=== PATIENT | female | born 1945 | race Caucasian/White ===

== ENCOUNTER → 2020-01-20 15:11 | Outpatient (CLI) | payer MEDICARE, SELFPAY ==
[2020-01-20 15:48] LABS: Basophils % 0.1 % (0.1-2.0); Eosinophils # 0.1 K/mm3 (0.0-0.4); Hematocrit 37.8 % (37.0-47.0); Hemoglobin 13.4 g/dL (12.2-16.2); Lymphocytes # 1.3 K/mm3 (0.7-4.5); Lymphocytes % 19.7 % (10-50); Mean Corpuscular HGB Conc 35.5 g/dL (31.8-35.4); Mean Corpuscular Hemoglobin 29.6 pg (27.0-31.2); Mean Corpuscular Volume 83.4 fl (81-99); Mean Platelet Volume 8.4 fl (7.4-10.4); Monocytes # 0.4 K/mm3 (0.1-1.0); Monocytes % 5.7 % (1.7-9.3); Neutrophils # 4.9 K/mm3 (1.8-7.8); Neutrophils % 73.4 % (37.0-80.0); Platelet Count 316 K/mm3 (142-424); Red Blood Count 4.54 M/mm3 (4.20-5.40); Red Cell Distribution Width 13.4 % (11.5-17.5); White Blood Count 6.7 K/mm3 (4.8-10.8)
[2020-01-20 17:12] LABS: Alanine Aminotransferase 27 U/L (12-78); Albumin Level 4.9 g/dl (3.5-5.0); Albumin/Globulin Ratio 1.9 (1.1-1.8); Alkaline Phosphatase 82 U/L (38-126); Aspartate Amino Transferase 38 U/L (14-36); Bilirubin,Total 0.6 mg/dl (0.2-1.3); Blood Urea Nitrogen 17 mg/dl (7-17); Calcium 9.7 mg/dl (8.4-10.2); Carbon Dioxide 24 mmol/L (22.0-30.0); Chloride 105 mmol/L (98-107); Cholesterol 168 mg/dl (140-200); Estimated Glomerular Filt Rate 98 ml/min (>60); GFR (African American) 119 ML/MIN (>60); Globulin 2.6 g/dL (1.3-3.2); Glucose 93 mg/dl (74-100); HDL Cholesterol 84 mg/dl (40-60); Sodium 142 mmol/L (136-145); Total Protein,Serum 7.5 g/dl (6.3-8.2); Triglycerides 81 mg/dl (30-150); VLDL Cholesterol 16 mg/dL (0-40)
[2020-01-20 17:23] LABS: Direct LDL Cholesterol 70.79 mg/dL (100-129)
[2020-01-20 17:29] LABS: T4 (Thyroxine) 14.6 ug/dl (5.53-11.0)
[2020-01-20 17:43] LABS: Thyroid Stimulating Hormone 1.42 uIU/mL (0.465-4.68)
== END ==
PROVIDERS: Visit Provider Family Medicine
DX: E03.9 Hypothyroidism, unspecified (principal); I10 Essential (primary) hypertension
CPT/HCPCS: 80053; 80061; 84436; 84443; 85025

== ENCOUNTER → 2020-09-07 16:47 | Outpatient (CLI) | payer MEDICARE, SELFPAY | PROVIDERS: Visit Provider Family Medicine | DX: N76.0 Acute vaginitis (principal) | CPT/HCPCS: 87086 ==

== ENCOUNTER → 2021-04-11 18:35 | Outpatient (CLI) | payer MEDICARE, SELFPAY | PROVIDERS: Visit Provider Family Medicine | DX: N39.0 Urinary tract infection, site not specified (principal) | CPT/HCPCS: 87086 ==

== ENCOUNTER → 2022-05-05 12:05 | Outpatient (CLI) | payer MEDICARE, SELFPAY ==
[2022-05-05 13:36] LABS: Basophils # 0.1 K/mm3 (0-0.2); Basophils % 0.9 % (0.1-2.0); Eosinophils # 0.3 K/mm3 (0.0-0.4); Eosinophils % 3.3 % (0.1-12.0); Hematocrit 40.3 % (37.0-47.0); Hemoglobin 13.5 g/dL (12.2-16.2); Lymphocytes # 1.9 K/mm3 (0.7-4.5); Mean Corpuscular HGB Conc 33.6 g/dL (31.8-35.4); Mean Corpuscular Volume 86.3 fl (81-99); Mean Platelet Volume 8.2 fl (7.4-10.4); Monocytes # 0.6 K/mm3 (0.1-1.0); Monocytes % 7.8 % (1.7-9.3); Neutrophils # 4.7 K/mm3 (1.8-7.8); Neutrophils % 63.1 % (37.0-80.0); Platelet Count 401 K/mm3 (142-424); Red Blood Count 4.67 M/mm3 (4.20-5.40); Red Cell Distribution Width 13.5 % (11.5-17.5); White Blood Count 7.4 K/mm3 (4.8-10.8)
[2022-05-05 14:17] LABS: Alanine Aminotransferase 21 U/L (12-78); Albumin Level 4.7 g/dl (3.5-5.0); Alkaline Phosphatase 96 U/L (38-126); Anion Gap 16.1 mEq/L (5-15); Aspartate Amino Transferase 30 U/L (14-36); Bilirubin,Total 0.5 mg/dl (0.2-1.3); Blood Urea Nitrogen 17 mg/dl (7-17); Calcium 9.9 mg/dl (8.4-10.2); Carbon Dioxide 26 mmol/L (22.0-30.0); Chloride 100 mmol/L (98-107); Estimated Glomerular Filt Rate 82 ml/min (>60); GFR (African American) 99 ML/MIN (>60); Globulin 2.3 g/dL (1.3-3.2); Glucose 89 mg/dl (74-100); Potassium 4.1 mmoL/L (3.5-5.1); Sodium 138 mmol/L (136-145)
[2022-05-05 14:48] LABS: Thyroid Stimulating Hormone 0.22 uIU/mL (0.465-4.68)
== END ==
PROVIDERS: PCP Family Medicine; Visit Provider Family Medicine
DX: E78.5 Hyperlipidemia, unspecified (principal); R53.83 Other fatigue
CPT/HCPCS: 80053; 84443; 85025

== ENCOUNTER → 2023-02-19 23:54 | Outpatient (CLI) | payer MEDICARE, SELFPAY ==
[2023-02-19 19:06] LABS: Chloride 104 mmol/L (98-107); Potassium 3.7 mmoL/L (3.5-5.1); Sodium 140 mmol/L (136-145)
[2023-02-19 19:08] LABS: Alanine Aminotransferase 20 U/L (12-78); Aspartate Amino Transferase 27 U/L (14-36); Blood Urea Nitrogen 19 mg/dl (7-17); Estimated Glomerular Filt Rate 81 ml/min (>60); GFR (African American) 98 ML/MIN (>60)
[2023-02-19 19:09] LABS: Albumin Level 3.9 g/dl (3.5-5.0); Albumin/Globulin Ratio 1.6 (1.1-1.8); Alkaline Phosphatase 79 U/L (38-126); Anion Gap 12.7 mEq/L (5-15); Bilirubin,Total 0.3 mg/dl (0.2-1.3); Calcium 9.3 mg/dl (8.4-10.2); Carbon Dioxide 27 mmol/L (22.0-30.0); Globulin 2.4 g/dL (1.3-3.2); Glucose 99 mg/dl (74-100); Total Protein,Serum 6.3 g/dl (6.3-8.2)
[2023-02-19 19:38] LABS: Thyroid Stimulating Hormone 0.17 uIU/mL (0.465-4.68)
== END ==
PROVIDERS: PCP Family Medicine; Visit Provider Family Medicine
DX: N30.00 Acute cystitis without hematuria (principal); S99.929A Unspecified injury of unspecified foot, initial encounter; Z85.850 Personal history of malignant neoplasm of thyroid
CPT/HCPCS: 80053; 84443; 87086

== ENCOUNTER → 2023-04-22 23:00 | Outpatient (CLI) | payer MEDICARE, SELFPAY ==
[2023-04-22 20:09] LABS: Free T4 (Free Thyroxine) 1.14 ng/dl (0.78-2.19)
== END ==
PROVIDERS: PCP Family Medicine; Visit Provider Family Medicine
DX: Z85.850 Personal history of malignant neoplasm of thyroid (principal)
CPT/HCPCS: 84439; 84443

== ENCOUNTER 2023-07-01 18:20 | Outpatient (CLI) | payer MEDICARE, SELFPAY ==
[2023-07-01 19:33] LABS: T4 (Thyroxine) 17.4 ug/dl (5.53-11.0)
[2023-07-01 19:46] LABS: Thyroid Stimulating Hormone 0.06 uIU/mL (0.465-4.68)
== END 2023-07-01 23:59 ==
LOC: LAB.DROPOF 18:20
PROVIDERS: PCP Family Medicine; Visit Provider Family Medicine
DX: Z85.850 Personal history of malignant neoplasm of thyroid (principal); N39.0 Urinary tract infection, site not specified; R94.6 Abnormal results of thyroid function studies; R19.00 Intra-abdominal and pelvic swelling, mass and lump, unspecified site; Z79.899 Other long term (current) drug therapy
CPT/HCPCS: 84436; 84443; 87086

== ENCOUNTER 2023-09-14 19:53 | Outpatient (CLI) | payer MEDICARE, SELFPAY ==
[2023-09-14 19:25] LABS: Basophils % 0.4 % (0.1-2.0); Eosinophils # 0.4 K/mm3 (0.0-0.4); Hematocrit 33.3 % (37.0-47.0); Lymphocytes # 1.6 K/mm3 (0.7-4.5); Lymphocytes % 22.2 % (10-50); Mean Corpuscular Hemoglobin 29.3 pg (27.0-31.2); Mean Corpuscular Volume 88.8 fl (81-99); Mean Platelet Volume 8.4 fl (7.4-10.4); Monocytes # 0.6 K/mm3 (0.1-1.0); Monocytes % 7.9 % (1.7-9.3); Neutrophils # 4.6 K/mm3 (1.8-7.8); Neutrophils % 64.5 % (37.0-80.0); Platelet Count 485 K/mm3 (142-424); Red Blood Count 3.74 M/mm3 (4.20-5.40); Red Cell Distribution Width 15.1 % (11.5-17.5); White Blood Count 7.1 K/mm3 (4.8-10.8)
[2023-09-14 19:41] LABS: Alanine Aminotransferase 21 U/L (12-78); Albumin Level 4.2 g/dl (3.5-5.0); Albumin/Globulin Ratio 1.9 (1.1-1.8); Alkaline Phosphatase 79 U/L (38-126); Anion Gap 10.2 mEq/L (5-15); Aspartate Amino Transferase 28 U/L (14-36); Bilirubin,Total 0.4 mg/dl (0.2-1.3); Blood Urea Nitrogen 15 mg/dl (7-17); Calcium 9.3 mg/dl (8.4-10.2); Carbon Dioxide 26 mmol/L (22.0-30.0); Chloride 107 mmol/L (98-107); Estimated Glomerular Filt Rate 97 ml/min (>60); GFR (African American) 118 ML/MIN (>60); Globulin 2.2 g/dL (1.3-3.2); Glucose 94 mg/dl (74-100); Potassium 4.2 mmoL/L (3.5-5.1); Sodium 139 mmol/L (136-145); Total Protein,Serum 6.4 g/dl (6.3-8.2)
[2023-09-14 20:11] LABS: Thyroid Stimulating Hormone 1.62 uIU/mL (0.465-4.68)
== END 2023-09-14 23:59 ==
LOC: LAB.DROPOF 19:53
PROVIDERS: PCP Family Medicine; Visit Provider Family Medicine
DX: E78.5 Hyperlipidemia, unspecified (principal); I10 Essential (primary) hypertension; Z85.850 Personal history of malignant neoplasm of thyroid
CPT/HCPCS: 80053; 84443; 85025

== ENCOUNTER 2023-10-29 12:42 | Outpatient (CLI) | payer MEDICARE, SELFPAY ==
[2023-10-29 18:56] LABS: Basophils % 0.5 % (0.1-2.0); Eosinophils # 0.2 K/mm3 (0.0-0.4); Eosinophils % 2.4 % (0.1-12.0); Hematocrit 35.6 % (37.0-47.0); Hemoglobin 11.6 g/dL (12.2-16.2); Lymphocytes # 1.2 K/mm3 (0.7-4.5); Lymphocytes % 17.1 % (10-50); Mean Corpuscular HGB Conc 32.7 g/dL (31.8-35.4); Mean Corpuscular Hemoglobin 27.6 pg (27.0-31.2); Mean Corpuscular Volume 84.5 fl (81-99); Mean Platelet Volume 8.9 fl (7.4-10.4); Monocytes # 0.6 K/mm3 (0.1-1.0); Monocytes % 7.9 % (1.7-9.3); Neutrophils # 5.1 K/mm3 (1.8-7.8); Neutrophils % 72.2 % (37.0-80.0); Platelet Count 375 K/mm3 (142-424); Red Blood Count 4.22 M/mm3 (4.20-5.40); Red Cell Distribution Width 14.5 % (11.5-17.5)
[2023-10-29 19:42] LABS: Thyroid Stimulating Hormone 0.05 uIU/mL (0.465-4.68)
[2023-10-29 20:01] LABS: Vitamin B12 373 pg/mL (239-931)
[2023-10-29 20:58] LABS: Iron 60 ug/dL (37-170)
[2023-10-29 21:07] LABS: Total Iron Binding Capacity 464 ug/dL (265-497)
== END 2023-10-29 23:59 | disposition home or self-care (01) ==
LOC: LAB.DROPOF 10-30 12:43
PROVIDERS: PCP Family Medicine; Visit Provider Family Medicine
DX: R30.0 Dysuria (principal); E07.9 Disorder of thyroid, unspecified; E55.9 Vitamin D deficiency, unspecified; E61.1 Iron deficiency; B96.29 Other Escherichia coli [E. coli] as the cause of diseases classified elsewhere
CPT/HCPCS: 82306; 82607; 83540; 83550; 84443; 85025; 87086; 87088; 87186

== ENCOUNTER 2024-01-25 10:34 | Outpatient (CLI) | payer MEDICARE, SELFPAY ==
[2024-01-25 19:02] LABS: Basophils % 0.8 % (0.1-2.0); Eosinophils # 0.2 K/mm3 (0.0-0.4); Eosinophils % 3.7 % (0.1-12.0); Hemoglobin 13.7 g/dL (12.2-16.2); Lymphocytes # 1.8 K/mm3 (0.7-4.5); Lymphocytes % 31.7 % (10-50); Mean Corpuscular HGB Conc 32.6 g/dL (31.8-35.4); Mean Corpuscular Hemoglobin 28.7 pg (27.0-31.2); Mean Corpuscular Volume 87.9 fl (81-99); Monocytes # 0.5 K/mm3 (0.1-1.0); Monocytes % 8.8 % (1.7-9.3); Neutrophils # 3.1 K/mm3 (1.8-7.8); Neutrophils % 55.1 % (37.0-80.0); Platelet Count 329 K/mm3 (142-424); Red Blood Count 4.77 M/mm3 (4.20-5.40); Red Cell Distribution Width 17.4 % (11.5-17.5); White Blood Count 5.6 K/mm3 (4.8-10.8)
[2024-01-25 19:51] LABS: Albumin Level 4.1 g/dl (3.5-5.0); Chloride 108 mmol/L (98-107); Sodium 140 mmol/L (136-145)
[2024-01-25 19:53] LABS: Alanine Aminotransferase 19 U/L (12-78); Aspartate Amino Transferase 26 U/L (14-36); Blood Urea Nitrogen 14 mg/dl (7-17); Carbon Dioxide 26 mmol/L (22.0-30.0); Estimated Glomerular Filt Rate 81 ml/min (>60); GFR (African American) 98 ML/MIN (>60)
[2024-01-25 19:54] LABS: Albumin/Globulin Ratio 1.9 (1.1-1.8); Alkaline Phosphatase 63 U/L (38-126); Bilirubin,Total 0.7 mg/dl (0.2-1.3); Calcium 8.8 mg/dl (8.4-10.2); Chol/HDL Ratio 2.3 (1-3.5); Cholesterol 160 mg/dl (140-200); Globulin 2.2 g/dL (1.3-3.2); Glucose 78 mg/dl (74-100); HDL Cholesterol 69 mg/dl (40-60); Total Protein,Serum 6.3 g/dl (6.3-8.2); Triglycerides 103 mg/dl (30-150); VLDL Cholesterol 21 mg/dL (0-40)
[2024-01-25 20:06] LABS: Direct LDL Cholesterol 52.68 mg/dL (100-129)
[2024-01-25 20:07] LABS: T4 (Thyroxine) 15.3 ug/dl (5.53-11.0)
[2024-01-25 20:20] LABS: Thyroid Stimulating Hormone 0.58 uIU/mL (0.465-4.68)
== END 2024-01-25 23:59 | disposition home or self-care (01) ==
LOC: LAB.DROPOF 01-26 10:34
PROVIDERS: PCP Family Medicine; Visit Provider Family Medicine
DX: E07.9 Disorder of thyroid, unspecified (principal); Z85.850 Personal history of malignant neoplasm of thyroid; E78.5 Hyperlipidemia, unspecified
CPT/HCPCS: 80050; 80053; 80061; 84436; 84443; 85025

== ENCOUNTER 2024-02-16 13:10 | Outpatient (CLI) | payer MEDICARE, SELFPAY | END 2024-02-16 23:59 | disposition home or self-care (01) | LOC: LAB.DROPOF 02-17 13:51 | PROVIDERS: PCP Nurse Practitioner; Visit Provider Nurse Practitioner | DX: N39.0 Urinary tract infection, site not specified (principal) | CPT/HCPCS: 87086 ==

== ENCOUNTER 2024-05-13 09:24 | Outpatient (CLI) | payer MEDICARE, SELFPAY ==
[2024-05-13 18:18] LABS: Basophils % 0.7 % (0.1-2.0); Eosinophils # 0.1 K/mm3 (0.0-0.4); Eosinophils % 1.5 % (0.1-12.0); Hematocrit 39.6 % (37.0-47.0); Hemoglobin 13.9 g/dL (12.2-16.2); Lymphocytes # 1.6 K/mm3 (0.7-4.5); Lymphocytes % 28.1 % (10-50); Mean Corpuscular HGB Conc 35.2 g/dL (31.8-35.4); Mean Corpuscular Hemoglobin 30.1 pg (27.0-31.2); Mean Corpuscular Volume 85.5 fl (81-99); Mean Platelet Volume 8.8 fl (7.4-10.4); Monocytes # 0.5 K/mm3 (0.1-1.0); Monocytes % 8.8 % (1.7-9.3); Neutrophils # 3.5 K/mm3 (1.8-7.8); Neutrophils % 60.9 % (37.0-80.0); Platelet Count 312 K/mm3 (142-424); Red Blood Count 4.63 M/mm3 (4.20-5.40); Red Cell Distribution Width 13.6 % (11.5-17.5); White Blood Count 5.7 K/mm3 (4.8-10.8)
[2024-05-13 18:54] LABS: Alanine Aminotransferase 21 U/L (12-78); Albumin Level 4.7 g/dl (3.5-5.0); Albumin/Globulin Ratio 2.1 (1.1-1.8); Alkaline Phosphatase 80 U/L (38-126); Anion Gap 14.8 mEq/L (5-15); Aspartate Amino Transferase 29 U/L (14-36); Bilirubin,Total 0.8 mg/dl (0.2-1.3); Blood Urea Nitrogen 14 mg/dl (7-17); Calcium 9.4 mg/dl (8.4-10.2); Carbon Dioxide 23 mmol/L (22.0-30.0); Chloride 106 mmol/L (98-107); Chol/HDL Ratio 1.9 (1-3.5); Cholesterol 161 mg/dl (140-200); Estimated Glomerular Filt Rate 97 ml/min (>60); GFR (African American) 117 ML/MIN (>60); Globulin 2.2 g/dL (1.3-3.2); Glucose 96 mg/dl (74-100); HDL Cholesterol 84 mg/dl (40-60); Potassium 3.8 mmoL/L (3.5-5.1); Sodium 140 mmol/L (136-145); Total Protein,Serum 6.9 g/dl (6.3-8.2); Triglycerides 104 mg/dl (30-150); VLDL Cholesterol 21 mg/dL (0-40)
[2024-05-13 19:05] LABS: Direct LDL Cholesterol 58.52 mg/dL (100-129)
[2024-05-13 19:25] LABS: Thyroid Stimulating Hormone 0.46 uIU/mL (0.465-4.68)
== END 2024-05-13 23:59 | disposition home or self-care (01) ==
LOC: LAB.DROPOF 05-16 09:24
PROVIDERS: PCP Family Medicine; Visit Provider Family Medicine
DX: I10 Essential (primary) hypertension (principal); Z00.00 Encounter for general adult medical examination without abnormal findings; Z85.850 Personal history of malignant neoplasm of thyroid
CPT/HCPCS: 80053; 80061; 84443; 85025

== ENCOUNTER 2024-09-21 09:30 | Outpatient (CLI) | payer MEDICARE, SELFPAY ==
[2024-09-21 18:08] LABS: Basophils % 0.4 % (0.1-2.0); Eosinophils # 0.5 K/mm3 (0.0-0.4); Eosinophils % 7.6 % (0.1-12.0); Hematocrit 40.4 % (37.0-47.0); Hemoglobin 13.3 g/dL (12.2-16.2); Lymphocytes # 1.3 K/mm3 (0.7-4.5); Lymphocytes % 18.9 % (10-50); Mean Corpuscular HGB Conc 32.9 g/dL (31.8-35.4); Mean Corpuscular Hemoglobin 29.2 pg (27.0-31.2); Mean Corpuscular Volume 88.8 fl (81-99); Mean Platelet Volume 10.4 fl (7.4-10.4); Monocytes # 0.6 K/mm3 (0.1-1.0); Monocytes % 8.2 % (1.7-9.3); Neutrophils # 4.3 K/mm3 (1.8-7.8); Neutrophils % 64.8 % (37.0-80.0); Platelet Count 305 K/mm3 (142-424); Red Blood Count 4.55 M/mm3 (4.20-5.40); Red Cell Distribution Width 13.2 % (11.5-17.5); White Blood Count 6.7 K/mm3 (4.8-10.8)
[2024-09-21 20:17] LABS: Alanine Aminotransferase 19 U/L (12-78); Albumin/Globulin Ratio 1.7 (1.1-1.8); Alkaline Phosphatase 76 U/L (38-126); Anion Gap 12.1 mEq/L (5-15); Aspartate Amino Transferase 28 U/L (14-36); Bilirubin,Total 0.9 mg/dl (0.2-1.3); Blood Urea Nitrogen 20 mg/dl (7-17); Carbon Dioxide 25 mmol/L (22.0-30.0); Chloride 107 mmol/L (98-107); Chol/HDL Ratio 2.1 (1-3.5); Cholesterol 132 mg/dl (140-200); Estimated Glomerular Filt Rate 97 ml/min (>60); GFR (African American) 117 ML/MIN (>60); Globulin 2.3 g/dL (1.3-3.2); Glucose 82 mg/dl (74-100); HDL Cholesterol 64 mg/dl (40-60); Potassium 4.1 mmoL/L (3.5-5.1); Sodium 140 mmol/L (136-145); Total Protein,Serum 6.3 g/dl (6.3-8.2); Triglycerides 90 mg/dl (30-150); VLDL Cholesterol 18 mg/dL (0-40)
[2024-09-21 20:28] LABS: Direct LDL Cholesterol 51.27 mg/dL (100-129)
[2024-09-21 20:36] LABS: T4 (Thyroxine) 14.8 ug/dl (5.53-11.0)
[2024-09-21 20:49] LABS: Thyroid Stimulating Hormone 0.31 uIU/mL (0.465-4.68)
[2024-09-21 21:09] LABS: Vitamin B12 475 pg/mL (239-931)
== END 2024-09-21 23:59 | disposition home or self-care (01) ==
LOC: LAB.DROPOF 09-22 09:06
PROVIDERS: PCP Family Medicine; Visit Provider Family Medicine
DX: Z85.850 Personal history of malignant neoplasm of thyroid (principal); I10 Essential (primary) hypertension
CPT/HCPCS: 80053; 80061; 82607; 84436; 84443; 85025

== ENCOUNTER 2024-10-31 10:00 | Outpatient (CLI) | payer MEDICARE, SELFPAY | END 2024-10-31 23:59 | disposition home or self-care (01) | LOC: LAB.DROPOF 11-01 13:09 | PROVIDERS: PCP Nurse Practitioner; Visit Provider Nurse Practitioner | DX: N30.00 Acute cystitis without hematuria (principal); B96.29 Other Escherichia coli [E. coli] as the cause of diseases classified elsewhere | CPT/HCPCS: 87086; 87088; 87186 ==

== ENCOUNTER 2024-12-21 09:20 | Outpatient (CLI) | payer MEDICARE, SELFPAY ==
--- OUTSIDE RECORDS SUMMARY | 2024-11-09 13:10 | XMS_ITS | Encounter Summary ---
Author Organization [place] [address] Care Team Providers Care Daytime Babysitter Name Role Phone Robert Ramos MD Unavailable [phone] Janina Montes MD Unavailable [phone] Kyaw Shook MD Primary Care Provider [phone] Reason for Referral * Vascular Imaging (Routine) - Pending Review Specialty Diagnoses / Procedures Referred By Contac t Referred To Contact Radiology Diagnoses Nonrheumatic aortic valve insufficiency Bruit of right carotid artery Right carotid bruit Procedures [facility] CAROTID DUPLEX BILATERAL Bhavin Oliver MD [address] [place] [address] [place] [address] Phone: tel: fax: Referral ID Status Reason Start Date Expiration Date V isits Requested Visits Authorized [id number] Pending Review 11/09/2024 11/09/2025 1 1 Reason for Visit * Reason Comments Follow-up 9 month follow up. E cho 08/31/24 Encounter Details Date Type Department Care Team (Latest Contact Info) Description 11/09/2024 1:10 PM EDT Office Visit [facility] [address] [place] [id number] Bhavin Oliver MD [address] [place] [address] [address] [facility] [place] [id number] Nonrheumatic aortic valve insufficiency (Primary Dx); Bruit of right carotid artery; Right carotid bruit Social History Tobacco Use Types Packs/Day Years Used Date Smoking Tobacco: Never Smokeless Tobacco: Never Tobacco Cessation:Counseling Given: Not Answered Alcohol Use Standard Drinks/Week Comments Yes 0 (1 standard drink = 0.6 oz pur e alcohol) rare [facility] Utilities Answer Date Recorded In the past 12 months has e electric, gas, oil, or water company threatened to shut off services in your home? No 09/07/2023 AUDIT-C Answer Date Recorded Frequency of Alcohol Consumption Monthly or less 02/18/2019 Average Number of Drinks Not on file 019 Frequency of Binge Drinking Not on file 01/22 Overall Financial Resource Strain (CARDIA) Answe r Date Recorded How hard is it for you to pa y for the very basics like food, housing, medical care, and heating? Not hard at all 09/07/2023 PHQ-2 Answer Date Recorded PHQ-2 Total Score 0 09/07/2023 [facility] - Occupational Stress Questionnaire Answer Date Recorded Do you feel stress - tense, restless, nervous, or anxious, or unable to sleep at night because your mind is troubled all the time - these days? Not at all 09/07/2023 Exercise Vital Sign Answer Date Recorde d On average, how many days pe r week do you engage in moderate to strenuous exercise (like a brisk walk)? 2 days 09/07/2023 On average, how many minutes do you engage in exercise at this level? 10 min 09/07/2023 Hunger Vital Sign Answer Date Recorded Within the past 12 months, y ou worried that your food would run out before you got the money to buy more. Never true 09/07/19 24 Within the past 12 months, t he food you bought just didn't last and you didn't have money to get more. Never true 09/07/2023 [facility] IP Transportation Answer D ate Recorded In the past 12 months, has l ack of reliable transportation kept you from medical appointments, meetings, work or from getting things needed for daily living? No 09/07/2023 Sexually Active Control Partners Comments Not Currently Comments No Sex and Gender Information Value Date Recorded Sex Assigned at Not on file Legal Sex Female 12:56 PM EDT Gender Identity Not on file Sexual Orientation Not on file documented as of this encounter Last Filed Vital Signs Vital Sign Reading Time Taken Comments Blood Pressure 120/70 11/09/2024 1:09 PM EDT Pulse 92 11/09/2024 1:09 PM EDT Temperature - - Respiratory Rate - - Oxygen Saturation - - Inhaled Oxygen Concentration - - Weight 61.2 kg (135 lb) 11/09/2024 1:09 PM EDT Height 165.1 cm (5' 5 ) 11/09/2024 1:09 PM EDT Body Mass Index 22.47 11/09/2024 1:09 PM EDT documented in this encounter Functional Status * Is the person deaf or does he/she have serious difficulty hearing? Answer Date of Assessment Author No 07/20/2019 8:43 AM Crystal Marrufo RN * Is the person blind or does he/she have serious difficulty seeing even when wearing glasses? Answer Date of Assessment Author No 07/20/2019 8:43 AM Crystal Marrufo RN * Does this person have serious difficulty walking or climbing stairs? Answer Date of Assessment Author No 07/20/2019 8:43 AM Crystal Marrufo RN * Does this person have difficulty dressing or bathing? Answer Date of Assessment Author No 07/20/2019 8:43 AM Crystal Marrufo RN * Because of a physical, mental or emotional condition, does this person have difficulty doing errands alone such as visiting a doctor's office or shopping? Answer Date of Assessment Author No 07/20/2019 8:43 AM Crystal Marrufo RN documented as of this encounter Mental Status * Because of a physical, mental or emotional condition, does this person have serious difficulty concentrating, remembering or making decisions? Answer Entry Date Author No 07/20/2019 8:43 AM Crystal Marrufo RN documented in this encounter Progress Notes * Bhavin Oliver MD - 11/09/2024 1:10 PM EDT Chief Complaint Patient presents with Follow-up 9 month follow up. Echo 08/31/24 HPI: Noemi Huffman is here for regularly scheduled cardiology followup. The patient reports feeling well without particular complaints today. REVIEW OF SYSTEMS: NEGATIVE FOR: Chest pain Dyspnea Palpitations Dizziness Syncope Edema POSITIVE FOR: none All other review of systems are negative. PAST MEDICAL HISTORY: Past Medical History: Diagnosis Date Anxiety Aortic valve regurgitation Arthritis knees Complication of anesthesia Diverticulosis Goiter Heart murmur mitral valve prolapse dx 2008, was having jaw pain, saw Dr. Ramos Heartburn and gas Hyperlipidemia Hypertension Mitral valve prolapse Osteoarthritis Osteopenia Post-surgical hypothyroidism 10/2013 Thyroid cancer (HCC) 10/2013 Follicular variant PTC, [id number] Stage I Tricuspid valve regurgitation Urinary tract infection last one 07/05 Vitamin D deficiency 01/10/2014 PAST SURGICAL HISTORY: Past Surgical History: Procedure Laterality Date BREAST SURGERY biopsy CHOLECYSTECTOMY, LAPAROSCOPIC 06/05/2010 LAPAROSCOPIC CHOLECYSTECTOMY POSSIBLE OPEN - SCIP performed by DARCI HALL at [facility] MAIN OR COLPOPEXY N/A 07/19/2019 Robotic Sacrocolpopexy, Placement of Transobturator Urethral Mesh Sling, Posterior Repair, Cystoscopy ; Surgeon: Hanna Iglesias MD; Location: [facility] MAIN OR; Service: Robotics CYSTOCELE REPAIR N/A 07/19/2019 Surgeon: Hanna Iglesias MD; Location: [facility] MAIN OR; Service: Robotics CYSTOSCOPY N/A 07/19/2019 Surgeon: Hanna Iglesias MD; Location: [facility] MAIN OR; Service: Robotics HYSTERECTOMY OVARY REMOVAL THYROIDECTOMY Bilateral 10/20/2013 RIGHT THYROID LOBECTOMY with isthmusectomy; Surgeon: Carlos Sanders MD; Location: [facility] MAIN OR; Service: ENT THYROIDECTOMY N/A 11/17/2013 COMPLETION THYROIDECTOMY; Surgeon: Carlos Sanders MD; Location: [facility] MAIN OR; Service: ENT TONSILLECTOMY URETHROPEXY N/A 07/19/2019 Surgeon: Hanna Iglesias MD; Location: [facility] MAIN OR; Service: Robotics ALLERGIES: Allergies Allergen Reactions Bacitracin Other (See Comments) Ciprofloxacin Hcl Other (See Comments) Nickel Swelling Allergic to metals Polysporin [Bacitracin-Polymyxin B] Swelling Any sporins Venom-Honey Bee Swelling Demerol [Meperidine] Other (See Comments) Pt states eyes turned green MEDICATIONS: Current Outpatient Medications: amLODIPine (NORVASC) 10 mg Oral Tablet, Take 1 Tablet by mouth daily., Disp: , Rfl: aspirin 81 mg Oral tablet, Take 1 Tablet by mouth daily. Hold until Thursday (Patient taking differently: Take 81 mg by mouth two times a week. Hold until Thursday), Disp: , Rfl: atorvastatin (LIPITOR) 20 mg Oral Tablet, Take 20 mg by mouth daily., Disp: , Rfl: azelastine (ASTELIN) 137 mcg (0.1 %) Nasl [place], Non-Aerosol, 2 Sprays in each nostril 2 times daily for 90 days. Use in each nostril as directed, Disp: 90 mL, Rfl: 1 ergocalciferol (VITAMIN D) 50,000 unit Oral Capsule, TAKE 1 CAPSULE BY MOUTH ONE TIME A WEEK, Disp:5 Cap, Rfl: 11 estradiol (ESTRACE) 0.01 % (0.1 mg/gram) Vagl Cream, Do not use Applicator. Apply pea-size amount with fingertip nightly x2 weeks, then apply 2-3 times per week thereafter, Disp: 1 Tube, Rfl: 3 losartan (COZAAR) 100 mg Oral Tablet, Take 1 Tablet by mouth daily. Restart , Disp: , Rfl: olopatadine (PATANOL) 0.1 % ophthalmic solution, Place 1 Drop into both eyes 2 times daily. Prn, Disp: , Rfl: pantoprazole (PROTONIX) 40 mg Oral Tablet, Delayed Release (E.C.), Take 40 mg by mouth daily., Disp: , Rfl: sulfamethoxazole-trimethoprim (BACTRIM DS) 800-160 mg Oral Tablet, Take 1 Tablet by mouth 2 times daily., Disp: , Rfl: SYNTHROID 100 mcg Oral Tablet, Take 100 mcg by mouth daily. (Patient taking differently: Take 88 mcg by mouth daily.), Disp: , Rfl: ciprofloxacin HCl (CIPRO) 500 mg Oral Tablet, take 1 tablet orally twice a day (Patient not taking:Reported on 11/09/2024), Disp: , Rfl: diclofenac (VOLTAREN) 1 % Top Gel, Apply topically as needed. (Patient not taking: Reported on 11/09/2024), Disp: , Rfl: famotidine (PEPCID) 40 mg Oral Tablet, Take 40 mg by mouth. (Patient not taking: Reported on 11/09/2024), Disp: , Rfl: polyethylene glycol (GLYCOLAX, MIRALAX) 17 gram Oral Powder in Packet, Take 17 g by mouth 2 times daily., Disp: 60 Packet, Rfl: 1 triamcinolone (NASACORT) 55 mcg Nasl Aerosol, [place], 2 Sprays by Nasal route daily. (Patient not taking: Reported on 11/09/2024), Disp: 16.5 g, Rfl: 5 SOCIAL HISTORY: Social History Socioeconomic History Marital status: Spouse name: Not on file Number of children: Not on file Years of education: Not on file Highest education level: Not on file Occupational History Not on file Tobacco Use Smoking status: Never Smokeless tobacco: Never Vaping Use Vaping status: Never Used Substance and Sexual Activity Alcohol use: Yes Comment: rare Drug use: No Sexual activity: Not Currently Other Topics Concern Not on file Social History Narrative Not on file Social Drivers of Health Financial Resource Strain: Low Risk (09/07/2023) Overall Financial Resource Strain (CARDIA) Difficulty of Paying Living Expenses: Not hard at all Food Insecurity: No Food Insecurity (09/07/2023) Hunger Vital Sign Worried About Running Out of Food in the Last Year: Never true Ran Out of Food in the Last Year: Never true Transportation Needs: No Transportation Needs (09/07/2023) [facility] IP Transportation In the past 12 months, has lack of reliable transportation kept you from medical appointments, meetings, work or from getting things needed for daily living?: No Physical Activity: Insufficiently Active (09/07/2023) Exercise Vital Sign Days of Exercise per Week: 2 days Minutes of Exercise per Session: 10 min Stress: No Stress Concern Present (09/07/2023) [facility] - Occupational Stress Questionnaire Feeling of Stress : Not at all Social Connections: Not on file Intimate Partner Violence: Not on file Housing Stability: Not on file FAMILY HISTORY: Family History Problem Relation Age of Onset Cancer Father Lung Cancer Father Diabetes Brother Heart Disease Brother Heart Attack Brother High Blood Pressure Brother Kidney Disease Brother Dementia Mother Depression Mother PHYSICAL EXAMINATION: Vitals: 11/09/24 1309 BP: 120/70 Pulse: 92 Body mass index is 22.47 kg/m??. CONSTITUTIONAL: Vital signs are noted No apparent distress Alert and oriented EYES: Gaze is conjugate Ptosis is absent EARS, NOSE, MOUTH, THROAT: Oropharynx is clear Nose is midline NECK: Thyromegaly is absent Trachea is midline RESPIRATORY: Respiratory effort is normal Wheezes are absent Rales are absent Rhonchi are absent CARDIOVASCULAR: Heart rate is noted above Rhythm is regular Murmurs are absent Rubs are absent S1 and S2 normal S3 or S4 are absent Pulses are normal Jugular venous pressure is normal Edema is absent Carotid Bruits are absent GASTROINTESTINAL: Bowel sounds are normal Hepatomegaly is absent Spleenomegaly is absent Abdomen is soft and non tender MUSCULOSKELETAL: Clubbing is absent Cyanosis is absent Gait is normal SKIN: Rashes are visually absent Turgor is normal Warm and dry NEUROLOGICAL: Cranial nerves are grossly intact Speech is normal PSYCHIATRIC: Mood is normal Affect is normal LABORATORY AND STUDIES: All pertinent study and laboratory results have been personally reviewed including results from last coronary angiogram, stress test, echocardiogram and/or carotid ultrasound if pertinent to this visit. SELECTIVE LAST BLOOD WORK: Lab Results Component Value Date CHOLESTEROL 134 09/23/2021 HDL 70 09/23/2021 LDLCALC 51 09/23/2021 TRIG 65 09/23/2021 Lab Results Component Value Date INR 1.04 09/06/2023 Lab Results Component Value Date WBC 6.8 09/08/2023 HGB 8.9 (L) 09/08/2023 HCT 27.3 (L) 09/08/2023 MCV 86.4 09/08/2023 PLT 273 09/08/2023 No results found for: HGBA1C Lab Results Component Value Date NA 143 09/08/2023 K 3.3 (L) 09/08/2023 BUN 8 09/08/2023 CALCIUM 8.4 (L) 09/08/2023 CL 109 (H) 09/08/2023 CO2 24 09/08/2023 CREATININE 0.63 09/08/2023 GLU 86 09/08/2023 Lab Results Component Value Date ALT 19 09/07/2023 AST 22 09/07/2023 ALKPHOS 59 09/07/2023 Lab Results Component Value Date TSH 0.863 09/23/2021 ECG RESULT IF DONE: No results found for this visit on 11/09/24. LABS ORDERS THIS VISIT: No orders of the defined types were placed in this encounter. IMAGING ORDERS THIS VISIT: None MEDICINE CHANGES THIS VISIT: Requested Prescriptions No prescriptions requested or ordered in this encounter There are no discontinued medications. ACTIVE PROBLEM LIST: Patient Active Problem List Diagnosis Date Noted Acute blood loss anemia 09/08/2023 Hypokalemia 09/08/2023 Gastrointestinal hemorrhage, unspecified gastrointestinal hemorrhage type 09/06/2023 Rectocele 04/26/2019 Added automatically from request for surgery [id number] Overactive bladder 04/26/2019 Added automatically from request for surgery [id number] Incomplete bladder emptying 04/26/2019 Added automatically from request for surgery [id number] Cystocele, midline 04/26/2019 Added automatically from request for surgery [id number] Stress incontinence 04/26/2019 Added automatically from request for surgery [id number] Subclinical hyperthyroidism, iatrogenic Vitamin D deficiency 01/10/2014 Osteopenia Post-surgical hypothyroidism Diverticulosis Thyroid cancer (HCC) 10/20/2013 Follicular variant PTC, [id number] Stage I Mitral valve prolapse mild Aortic valve regurgitation mild Tricuspid valve regurgitation mild ASSESSMENT AND PLAN: Rare sob Able to walk up flight steps No usa no chf No cps no pressure No bleeding Echo august 2024 60-65mild to mod ai, mild mr S/p gi bleeding spring 2023 Norvasc 10mg aday Lipitor 20mg day tolerating Echo ef 60 65 mod ai mild to mod mr Caortid 1-39%. Mild ai 2011, Is active Heart murmur 1-2/4 diastolic Endocarditis prophylaxis Amoxicillin 500mg 4 tabl prior to dentist Repeat echo Carotid bruit right Norvasc 10mg aday no edema Echo jun or jul 2024 planned to reassess ai documented in this encounter Miscellaneous Notes * Addendum Note - Abhishek Montgomery RMA - 11/09/2024 1:10 PM EDTAddended by: ABHISHEK MONTGOMERY on: 11/09/2024 01:28 PM Modules accepted: Orders * Addendum Note - Bhavin Oliver MD - 11/09/2024 1:10 PM EDTAddended by: BHAVIN OLIVER. on: 11/09/2024 01:28 PM Modules accepted: Orders * Addendum Note - Adriana Plaza CMA - 11/09/2024 1:10 PM EDTAddended by: ADRIANA PLAZA on: 11/09/2024 01:32 PM Modules accepted: Orders documented in this encounter Plan of Treatment Upcoming Encounters Date Type Department Care Team (Late st Contact Info) Description 11/10/2025 1:30 PM EDT Office Visit [facility] [address] [address] Bhavin Oliver MD [address] [place] [id number] Scheduled Orders Name Type Priority Associated Diagnoses Order Schedule [facility] CAROTID DUPLEX BILATERAL Imaging Cardiology Routine Nonrheumatic aortic valve insufficiency Bruit of right carotid artery Right carotid bruit 1 Occurrences starting 11/09/2024 until 11/09/2026 documented as of this encounter Visit Diagnoses Diagnosis Nonrheumatic aortic valve insufficiency- Primary Aortic valve disorders Bruit of right carotid artery Right carotid bruit Other symptoms involving cardiovascular system documented in this encounter Discontinued Medications Medication Sig Discontinue Reason Start Date End Da te ciprofloxacin HCl (CIPRO) 500 mg Oral Tablet take 1 tablet orally twice a day Cancelled by 09/08/2024 11/09/2024 documented as of this encounter Historical Medications * This list may reflect changes made after this encounter. sulfamethoxazole- trimethoprim (BACTRIM DS) 800-160 mg Oral Tablet Take 1 Tablet by mouth 2 times daily. 11/03/2024 pantoprazole (PROTONIX) 40 mg Oral Tablet, Delayed Release (E.C.) Take 40 mg by mouth daily. 11/06/2024 added in this encounter Care Teams Daytime Babysitter Relationship Specialty Start Date End Date Kyaw Shook MD [address] [facility] [address] [place] [address] PCP - General Family Medicine 07/12/19 Robert Ramos MD [address] [place], [place] [id number] Physician Internal Medicine-Cardiovascular Disease 03/26/12 Janina Motnes MD [address] [facility] [address] [place] [address] Internal Medicine-Endocrinology, Diabetes & Metabolism 01/10/14 documented as of this encounter
[2024-12-21 22:15] LABS: T4 (Thyroxine) 15.7 ug/dl (5.53-11.0)
[2024-12-21 22:29] LABS: Thyroid Stimulating Hormone 3.05 uIU/mL (0.465-4.68)
[2024-12-21 23:16] LABS: Hepatitis C Ab Qual. W/ RFX NEGATIVE (Negative)
--- OUTSIDE RECORDS SUMMARY | 2024-12-26 09:25 | XMS_ITS | Clinical Summary ---
Author Organization [facility] Address [address] [place] [address] Care Team Providers Care Tool Grinder Operator Name Role Phone Kyaw Shook MD Primary Care Provider [phone] Allergies Active Allergy Reactions Criticality Noted Date Comments Other 08/31/2013 ALL SPORINS Bacitracin-Polymyxin B Swelling 08/31/2013 Venom-Honey Bee Swelling 08/31/2013 Medications aspirin 81 mg PO TbEC Take 81 mg by mouth daily. Active estrogens, conjugated, (PREMARIN) 0.625 mg/gram VA Crea Insert 0.5 g into vagina daily. Use daily for 2 weeks then 3 times weekly thereafter 42.5 g 4 4 Active LEVOTHYROXINE SODIUM (SYNTHROID PO) Take by mouth. Active CALCIUM PO Take by mouth. Acti ve Active Problems Problem Noted Date Diagnosed Date Hematuria 08/31/2013 Overview (03/23/2017): Replaced inactive diagnosis via diagnosis import Recurrent UTI 08/31/2013 Atrophic vaginitis 08/31/2013 Midline cystocele 08/31/2013 Family History Medical History Relation Name Comments Cancer Father Other Mother alzheimers Relation Name Status Comments Father Mother Social History Tobacco Use Types Packs/Day Years Used Date Smoking Tobacco: Never Alcohol Use Standard Drinks/Week Comments No 0 (1 standard drink = 0.6 oz pur e alcohol) Comments No Sex and Gender Information Value Date Recorded Sex Assigned at Not on file Legal Sex Female 10:30 AM EST Gender Identity Not on file Sexual Orientation Not on file Last Filed Vital Signs Vital Sign Reading Time Taken Comments Blood Pressure 132/87 04/14/2014 1:20 PM EDT Pulse 85 04/14/2014 1:20 PM EDT Temperature 36.5 C (97.7 F) 04/14/2014 1:20 PM EDT Respiratory Rate 18 04/14/2014 1:20 PM EDT Oxygen Saturation - - Inhaled Oxygen Concentration - - Weight 69.4 kg (153 lb) 04/14/2014 1:20 PM EDT Height 165.1 cm (5' 5 ) 04/14/2014 1:20 PM EDT Body Mass Index 25.46 04/14/2014 1:20 PM EDT Plan of Treatment Health Maintenance Due Date Last Done Comments Lipid Screening 1963 Tetanus Vaccination (Every 10 Years) 1963 Hepatitis C Virus (HCV) Screening 12/16/1967 Pneumococcal Vaccine: 50+ Years (1 of 1 - PCV) 997 Zoster-RZV(Shingrix) (1 of 2) 1996 Fall Risk Assessment 12/16/2011 Osteoporosis Screening 12/16/2011 RSV Vaccines (1 - 1-dose 75+ series) 2021 COVID-19 Vaccine ( - 2023- season) 2024 Advance Care Planning 06/22/2024 Depression Screening 06/22/2024 Influenza Vaccination (#1) 2025 Care Teams Tool Grinder Operator Relationship Specialty Start Date End Date Kyaw Shook MD PCP - General Family Medicine 08/30/13
== END 2024-12-21 23:59 | disposition home or self-care (01) ==
LOC: LAB 12-26 09:21
PROVIDERS: PCP Family Medicine; Visit Provider Family Medicine
DX: Z11.59 Encounter for screening for other viral diseases (principal); I10 Essential (primary) hypertension; R30.0 Dysuria; Z98.890 Other specified postprocedural states; Z90.89 Acquired absence of other organs
CPT/HCPCS: 84436; 84443; 86803; 87086; 87389

== ENCOUNTER 2025-02-27 14:30 | Outpatient (CLI) | payer MEDICARE, SELFPAY ==
--- OUTSIDE RECORDS SUMMARY | 2025-02-28 11:03 | XMS_ITS | Encounter Summary ---
Author Organization [facility] [place] [address] Care Team Providers Care Drawer In Dobby Loom Name Role Phone Robert Ramos MD Unavailable [phone] Janina Montes MD Unavailable [phone] Kyaw Shook MD Primary Care Provider [phone] Reason for Visit * Reason Onset Date Comments Medication Refill 01/24/2025 Patient Question 01/24/2025 Encounter Details Date Type Department Care Team (Late st Contact Info) Description 01/24/2025 Telephone [facility] [place] [address] [place] [address] Stephon Galan MD [address] [facility] [place] [address] Medication Refill; Patient Question Social History Tobacco Use Types Packs/Day Years Used Date Smoking Tobacco: Never Smokeless Tobacco: Never Alcohol Use Standard Drinks/Week Comments Yes 0 (1 standard drink = 0.6 oz pur e alcohol) rare [facility] Utilities Answer Date Recorded In the past 12 months has [employer], gas, oil, or water company threatened to [...] Date Recorded PHQ-2 Total Score 0 09/07/2023 [facility] Health - Occupational Stress [...] money to get more. Never true 09/07/2023 [facility] IP Transportation Answer D ate Recorded [...] on file documented as of this encounter Functional Status * Is the [...] Crystal Marrufo RN documented in this encounter Ordered Prescriptions Prescription Sig Dispense Quantity Refills Last Filled Start Date End Date amoxicillin (AMOXIL) 500 mg Oral Capsule Take 4 Capsules by mouth once for 1 dose. 30 minutes prior to procedure 4 Capsule 01/24/2025 documented in this encounter Miscellaneous Notes * Telephone Encounter - Rosa Montgomery RMA - 01/24/2025 1:59 PM EDT I spoke with patient, she is aware that Amoxicillin has been sent in to the pharmacy for her. I have carotid scheduled for 06/27/25 * Telephone Encounter - Enoc Baer APRN - 01/24/2025 1:41 PM EDT Amoxicillin 500 mg 4 tabs 30 minutes prior to going to dentist * Telephone Encounter - Rosa Montgomery RMA - 01/24/2025 12:58 PM EDT Please advise on prescription for dental cleaning. * Telephone Encounter - Sendy Nguyen - 01/24/2025 11:59 AM EDT Patient is calling asking for a script sent in for dental cleaning she is not sure what she needs [facility] She is also asking about the carotid order is she to get that done ? Please call and advise documented in this encounter Plan of Treatment Upcoming Encounters Date Type Department Care Team (Late st Contact Info) Description 06/27/2025 10:30 AM EST Appointment [facility] [address] [place] [address] Stephon Galan MD [address] [place] [address] [place] [address] 11/10/2025 1:30 PM EDT Office [place] [address] Stephon Galan MD [address] [place] [address] [place] [address] documented as of this encounter Visit Diagnoses Not on filedocumented in this encounter Care Teams Drawer In Dobby Loom Relationship Specialty Start Date End Date Kyaw Shook MD [address] [address] PCP - General Family Medicine 07/12/19 Robert Ramos MD [address] [place] [address] [place] [id number] Physician Internal Medicine-Cardiovascular Disease 03/26/12 Janina Montes MD [address] [address] Internal Medicine-Endocrinology, Diabetes & Metabolism 01/10/14 documented as of this encounter
--- OUTSIDE RECORDS SUMMARY | 2025-02-28 11:04 | XMS_ITS | Continuity of Care Document ---
Author Organization [facility] EDG MV1 [address] Address [address] [facility], [address] [place] [address] Care Team Providers Care Distribution Operations Supervisor Name Role Phone Zbigniew Ramos MD Unavailable [phone] Janina Montes MD Unavailable Kyaw Shook MD Primary Care Provider [phone] Encounters Date Type Department Care Team Description 01/24/2025 Telephone [facility] [address] [address] Stephon Galan MD Medication Refill; Patient Question 11/09/2024 1:10 PM EDT Office Visit [facility] [address] [address] Stephon Galan MD Nonrheumatic aortic valve insufficiency (Primary Dx); Bruit of right carotid artery; Right carotid bruit 10/24/2024 Telephone [facility] [address] [facility] [address] [place] [phone] Zehra Colon PA-C Results 10/21/2024 12:28 PM EDT - 10/21/2024 11:59 PM EDT Hospital Encounter [facility] [address] [place] [address] Zehra Colon PA-C Nasal congestion; Acute recurrent sinusitis, unspecified location Discharge Disposition: Home or Self Care 10/06/2024 Refill [facility] [address] [facility] [address] [place] [phone] Zehra Colon PA-C Medication Refill 09/13/2024 9:15 AM EDT Office Visit [facility] [address] [facility] [address] [facility] [place] [phone] Zehra Colon PA-C Acute recurrent sinusitis, unspecified location (Primary Dx); Abnormal auditory perception of both ears; Tinnitus, bilateral; H/O malignant neoplasm of thyroid; H/O total thyroidectomy; Nasal congestion; Post-nasal drip; Sensory hearing loss, bilateral 08/31/2024 11:49 AM EDT - 08/31/2024 11:59 PM EDT Hospital Encounter [facility] ECHO [address] [facility] [address] [place] [address] Stephon Galan MD Nonrheumatic aortic valve insufficiency; Gastrointestinal hemorrhage, unspecified gastrointestinal hemorrhage type Discharge Disposition: Home or Self Care 02/11/2024 2:30 PM EDT Office Visit [facility] H&V [address] [phone] Stephon Galan MD Nonrheumatic aortic valve insufficiency (Primary Dx); Gastrointestinal hemorrhage, unspecified gastrointestinal hemorrhage type 12/28/2023 9:45 AM EDT Office Visit [facility] [address] [facility] [address] [place] [address] Lina Sousa PA-C Biceps tendinitis of left upper extremity (Primary Dx); Subacromial bursitis of left shoulder joint 11/12/2023 9:30 AM EDT Office Visit [facility] [address] [facility] [address] [place] [address] Hal Marcelo DO Biceps tendinitis of left upper extremity (Primary Dx); Subacromial bursitis of left shoulder joint 11/11/2023 11:15 AM EDT - 11/11/2023 11:59 PM EDT Hospital Encounter [facility] [place] [id number] Kyaw Shook MD Screening mammogram for breast cancer Discharge Disposition: Home or Self Care 11/05/2023 10:00 AM EDT Ancillary Procedure [facility] [address] [place] [address] [place] [address] Kayleigh Mason PA-C Acute pain of left shoulder 11/05/2023 9:45 AM EDT Office Visit [facility] [address] [place] [address] [place] [address] Kayleigh Mason PA-C Chronic left shoulder pain (Primary Dx) 09/08/2023 10:12 AM EDT Anesthesia Event [facility] ENDOSCOPY [facility] [place] [address] Zechariah Reddy MD Wilson, Christine E, HEAD REFRIGERATION ENGINEER 09/06/2023 3:47 PM EDT - 09/08/2023 2:58 PM EDT Hospital Encounter [facility]A [facility] [place] [address] Eduardo Hardy MD Jarkani, Ashok P, MD Gastrointestinal hemorrhage, unspecified gastrointestinal hemorrhage type (Primary Dx) Discharge Disposition: Home or Self Care 09/06/2023 Travel 07/17/2023 6:22 AM EST - 07/17/2023 11:59 PM EST Hospital Encounter [facility] [place] [address] Kyaw Shook MD Intra-abdominal and pelvic swelling, mass and lump, unspecified site; Family history of aortic aneurysm; History of thyroid cancer; Gastroesophageal reflux disease, unspecified whether esophagitis present Discharge Disposition: Home or Self Care 04/09/2023 3:20 PM EDT Office Visit [facility] [address] [address] Stephon Galan MD Nonrheumatic aortic valve insufficiency (Primary Dx); Mitral valve prolapse; Tricuspid valve insufficiency, unspecified etiology 02/20/2023 Telephone [facility] [place] [address] [place] [address] Stephon Galan MD Reschedule 02/20/2023 11:05 AM EDT - 02/20/2023 11:59 PM EDT Hospital Encounter [facility] ECHO [facility] [place] [address] Stephon Galan MD Encounter to establish care; Heart murmur; Right carotid bruit Discharge Disposition: Home or Self Care 02/20/2023 9:54 AM EDT - 02/20/2023 11:04 AM EDT Hospital Encounter [facility] VASCULAR LAB [facility] [place] [address] Stephon Galan MD Encounter to establish care; Heart murmur; Right carotid bruit Discharge Disposition: Home or Self Care 02/02/2023 12:50 PM EDT Ancillary Procedure [facility] [address] [place] [address] Emma Kennedy APRN Left foot pain Discharge Disposition: Home or Self Care 02/02/2023 12:15 PM EDT Office Visit [facility] [address] [place] [address] Emma Kennedy APRN Left foot pain (Primary Dx); Contusion of left foot, initial encounter 01/08/2023 2:00 PM EDT Office Visit [facility] [place] [address] [place] [phone] Stephon Galan MD Encounter to establish care (Primary Dx); Heart murmur; Right carotid bruit; Nonrheumatic aortic valve insufficiency; Mitral valve prolapse 09/23/2021 9:24 AM EDT - 09/23/2021 11:59 PM EDT Hospital Encounter [facility] [address] [place] [address] Regular check-up (Primary Dx) Discharge Disposition: Home or Self Care 09/13/2020 9:15 AM EDT - 09/13/2020 11:59 PM EDT Hospital Encounter [facility] [address] [place] [address] Essential hypertension (Primary Dx) Discharge Disposition: Home or Self Care 09/13/2020 Travel 02/07/2020 Travel 02/07/2020 11:00 AM EDT Office Visit [facility] Urogynecology [address] [address] Kellee Lara APRN Postoperative visit (Primary Dx); Visit for pelvic exam; History of vaginal surgery; Vaginal atrophy; Granulation tissue at vaginal vault; Other constipation 09/02/2019 Telephone [facility] Urogynecology [address] [phone] Christa Cunha LPN Results (urine culture ) 08/30/2019 11:30 AM EDT Office Visit [facility] Urogynecology [address] [address] Kellee Lara, ROBERT Urinary frequency (Primary Dx); Postoperative visit; Overactive bladder; Recurrent UTI; Vaginal atrophy 08/02/2019 Travel 08/02/2019 1:30 PM EST Office Visit [facility] Urogynecology [address] [address] Kellee Lara APRN Postoperative visit (Primary Dx); BV (bacterial vaginosis) 07/21/2019 Telephone [facility] Urogynecology [address] [phone] Martha Shaffer LPN Post-op Call 07/19/2019 6:01 AM EST - 07/20/2019 11:49 AM EST Hospital Encounter [facility] [address] [facility] [place] [address] Hanna Iglesias MD Rectocele; Overactive bladder; Incomplete bladder emptying; Cystocele, midline; Stress incontinence; Rectocele; Overactive bladder; Incomplete bladder emptying; Cystocele, midline; Stress incontinence; Atrophy of vagina Discharge Disposition: Home or Self Care 07/19/2019 Travel 07/19/2019 7:30 AM EST - 07/19/2019 12:00 PM EST Surgery [facility] PERIOP [address] [place] [address] Hanna Iglesias MD DAVINCI ROBOTIC SACRAL COLPOPEXY 07/19/2019 7:30 AM EST Anesthesia Event [facility]OP [address] [place] [address] Mendel Brice MD Merkle Serey, Jennifer L, MANAGER [employer] 07/18/2019 Travel 07/18/2019 10:39 AM EST - 07/18/2019 11:59 PM EST Hospital Encounter [facility] PRE-ADMIT TESTING [address] [place] [id number] Pat, Ftt Preop testing (Primary Dx); Overactive bladder Discharge Disposition: Home or Self Care 07/12/2019 Orders Only [facility] Urogynecology [address] [phone] Martha Shaffer LPN Rectocele (Primary Dx); Overactive bladder; Incomplete bladder emptying; Cystocele, midline; Stress incontinence; Atrophy of vagina 07/12/2019 Telephone [facility] Urogynecology [address] [phone] Martha Shaffer LPN Pre-op Exam 04/19/2019 Telephone [facility] Urogynecology [address] [phone] Martha Shaffer LPN Procedure 04/15/2019 12:00 PM EDT Office Visit [facility] Urogynecology [address] [address] Hanna Iglesias MD Cystocele, midline (Primary Dx); Rectocele; Overactive bladder; Incomplete bladder emptying; Atrophy of vagina; Stress incontinence 03/23/2019 3:30 PM EDT Procedure visit [facility] [place] [phone] Kellee Lara, ROBERT Female genital prolapse, unspecified type (Primary Dx); LYNDON (stress urinary incontinence, female); OAB (overactive bladder); Urinary frequency 02/22/2019 Telephone [facility] Urogynecology [address] [address] Gracy Holder CMA Medication Refill 02/22/2019 Telephone [facility] Urogynecology [place] [phone] Sharee Shrestha MA Results 02/18/2019 9:30 AM EDT Office Visit [facility] Urogynecology [address] [address] Hanna Iglesias MD Urinary frequency (Primary Dx); Recurrent UTI; Rectocele; Cystocele, midline; Incomplete bladder emptying; Atrophy of vagina 03/04/2018 9:45 AM EDT - 03/04/2018 11:59 PM EDT Hospital Encounter [facility] [place] [address] Kyaw Shook MD Encounter for screening for malignant neoplasm of breast Discharge Disposition: Home or Self Care 03/04/2018 9:05 AM EDT - 03/04/2018 9:44 AM EDT Hospital Encounter [facility] DEXA [facility] [place] [address] Kyaw Shook MD Postmenopausal status Discharge Disposition: Home or Self Care 10/15/2015 Telephone [facility] [address] [place] [phone] Janina Montes MD Cancellation 04/23/2015 Telephone [facility] [address] [place] [phone] Janina Montes MD Orders 04/13/2015 11:00 AM EDT Office Visit [facility] [address] [place] [address] Janina Montes MD Thyroid cancer (HCC) (Primary Dx); Post-surgical hypothyroidism; Subclinical hyperthyroidism, iatrogenic; Osteopenia; Vitamin D deficiency 04/11/2015 4:15 PM EDT - 04/11/2015 11:59 PM EDT Hospital Encounter [facility] [address] [place] [address] Post-surgical hypothyroidism; Vitamin D deficiency Discharge Disposition: Home or Self Care 04/11/2015 Telephone [facility] [address] [facility] [address] [place] [address] Janina Montes MD Reschedule 04/10/2015 Telephone [facility] [address] [place] [address] Janina Montes MD Labs Only 01/21/2015 Refill [facility] [address] [place] [phone] Janina Montes MD Medication Refill 01/04/2015 Refill [facility] [address] [place] [phone] Janina Montes MD Medication Refill 10/03/2014 10:40 AM EDT Office Visit [facility] [address] [place] [address] Janina Montes MD Thyroid cancer (HCC) (Primary Dx); Post-surgical hypothyroidism; Subclinical hyperthyroidism, iatrogenic; Vitamin D deficiency; Osteopenia 09/26/2014 10:10 AM EDT - 09/26/2014 11:59 PM EDT Hospital Encounter [facility] [place] [address] Janina Montes MD Thyroid cancer (HCC) Discharge Disposition: Home or Self Care 09/26/2014 Telephone [facility] [address] [facility] [address] [place] [phone] Janina Montes MD Lab Orders 09/26/2014 9:35 AM EDT - 09/26/2014 10:09 AM EDT Hospital Encounter [facility] LABORATORY [facility] [place] [address] Thyroid cancer (HCC); Post-surgical hypothyroidism Discharge Disposition: Home or Self Care 04/17/2014 2:20 PM EDT Office Visit [facility] [address] [phone] Janina Montes MD Thyroid cancer (HCC) (Primary Dx); Post-surgical hypothyroidism; Osteopenia; Vitamin D deficiency 04/12/2014 11:20 AM EDT - 04/12/2014 11:59 PM EDT Hospital Encounter [facility] LABORATORY [facility] [place] [address] Post-surgical hypothyroidism (Primary Dx); Vitamin D deficiency Discharge Disposition: Home or Self Care 01/10/2014 2:10 PM EDT Office Visit [place] [address] [address] [phone] Janina Montes MD Thyroid cancer (HCC) (Primary Dx); Post-surgical hypothyroidism; Osteopenia; Vitamin D deficiency 01/04/2014 11:20 AM EDT - 01/04/2014 11:59 PM EDT Hospital Encounter [facility] LABORATORY [facility] [place] [address] Thyroid cancer (HCC) (Primary Dx); Post-surgical hypothyroidism; Osteopenia Discharge Disposition: Home or Self Care 12/13/2013 3:00 PM EDT Office Visit [facility] [address] [address] Janina Montes MD Thyroid cancer (HCC) (Primary Dx); Post-surgical hypothyroidism; Osteopenia 11/24/2013 11:10 AM EDT - 11/24/2013 11:59 PM EDT Hospital Encounter [facility] LABORAT[facility] [place] [address] Hypocalcemia (Primary Dx) Discharge Disposition: Home or Self Care 11/17/2013 8:00 AM EDT - 11/17/2013 11:30 AM EDT Surgery [facility] PERIOP [facility] [address] [place] [address] Carlos Sanders MD THYROIDECTOMY 11/17/2013 6:56 AM EDT - 11/17/2013 4:39 PM EDT Hospital Encounter [facility] SAME DAY SURGERY [facility] [address] [place] [address] Carlos Sanders MD Thyroid cancer (HCC) (Primary Dx) Discharge Disposition: Home or Self Care 10/20/2013 8:30 AM EDT - 10/20/2013 11:30 AM EDT Surgery [facility] [address] [place] [address] Carlos Sanders MD THYROIDECTOMY 10/20/2013 6:39 AM EDT - 10/20/2013 4:44 PM EDT Hospital Encounter [facility] SAME DAY SURGERY [facility] [address] [place] [address] Carlos Sanders MD Discharge Disposition: Home or Self Care 10/14/2013 1:09 PM EDT - 10/14/2013 11:59 PM EDT Hospital Encounter [facility] D-WING XRAY [facility] Dr[address] [place] [address] Carlos Sanders MD Discharge Disposition: Home or Self Care 10/14/2013 11:59 AM EDT - 10/14/2013 1:08 PM EDT Hospital Encounter [facility] PRE-ADMIT TESTING [facility] [address] [place] [address] Discharge Disposition: Home or Self Care 10/07/2013 Telephone [facility] [address] [phone] Zbigniew Ramos MD Cardiology Clearance (Thyroid Surger per ) 09/23/2013 11:15 AM EDT - 09/23/2013 11:59 PM EDT Hospital Encounter [facility] Ultrasound [facility] [address] [place] [address] Carlos Sanders MD Kerman, John H, MD Multiple thyroid nodules Discharge Disposition: Home or Self Care 05/09/2013 1:30 PM EST - 05/09/2013 11:59 PM EST Hospital Encounter [facility] Mammography [facility] [place] [address] Kyaw Shook MD Other screening mammogram Discharge Disposition: Home or Self Care 05/09/2013 1:21 PM EST - 05/09/2013 1:29 PM EST Hospital Encounter [facility] DEXA [facility] [place] [address] Kyaw Shook MD Post-menopausal; Screening Discharge Disposition: Home or Self Care 04/23/2012 10:07 AM EDT - 04/23/2012 11:59 PM EDT Hospital Encounter [facility] [address] [facility] [address] [place] [address] Zbigniew Ramos MD Mitral valve prolapse; Aortic valve regurgitation; Tricuspid valve regurgitation Discharge Disposition: Home or Self Care 04/20/2012 10:00 AM EDT Office Visit [facility] [address] [place] [address] Zbigniew Ramos MD Mitral valve prolapse; Aortic valve regurgitation; Tricuspid valve regurgitation 06/05/2010 9:04 AM EST - 06/05/2010 10:26 AM EST Surgery [facility] PERIOP [facility] [place] [address] Darci Camara MD LAPAROSCOPIC CHOLECYSTECTOMY POSSIBLE OPEN 06/05/2010 7:37 AM EST - 06/05/2010 12:14 PM EST Hospital Encounter [facility] SAME DAY SURGERY [facility] [place] [address] Darci Camara MD Discharge Disposition: Home or Self Care 05/28/2010 3:17 PM EST - 05/28/2010 11:59 PM EST Hospital Encounter [facility] EKG [facility] [place] [address] Darci Camara MD Discharge Disposition: Home or Self Care 05/28/2010 9:16 AM EST - 05/28/2010 3:16 PM EST Hospital Encounter [facility] PRE-ADMIT TESTING [facility] [place] [address] Darci Camara MD Discharge Disposition: Home or Self Care 07/26/2009 Hospital Encounter [facility] MEDICINE [facility]TT 07/14/2009 12:01 AM EST - 07/14/2009 11:59 PM EST Hospital Encounter [facility] EPIC CON UNK EDG Lito Rocha MD 07/06/2009 2:02 PM EST - 07/06/2009 11:59 PM EST Hospital Encounter [facility]ST EPIC CON UNK EDG Kyaw Shook MD 07/27/2008 8:28 PM EST - 07/28/2008 11:05 AM EST Hospital Encounter HST CDU Zbigniew Ramos MD Schutzman, Jerome B, MD 04/27/2007 7:01 PM EST - 04/27/2007 11:59 PM EST Hospital Encounter HST LAB EDG Dane Avila MD 03/15/2003 12:05 AM EDT - 03/15/2003 1:50 AM EDT Emergency [facility] EMERGENCY FTT Generic, Historical Provider 01/01/2000 6:17 AM EDT - 01/01/2000 11:59 PM EDT Hospital Encounter [facility] RADIOLOGY EDG Kyaw Shook MD 12/25/1999 5:45 AM EDT - 12/25/1999 11:59 PM EDT Hospital Encounter [facility]ST WOS Kyaw Kelley MD 12/06/1999 2:07 PM EDT - 12/06/1999 11:59 PM EDT Hospital Encounter H[facility] CTR WOM WEL Kyaw Kelley MD 12/12/1995 10:25 AM EDT - 12/12/1995 10:30 AM EDT Hospital Encounter HST 2CO Arpit Cristobal MD 11/12/1995 3:19 AM EDT - 11/12/1995 11:59 PM EDT Hospital Encounter [facility]ST EPIC CON UNK Andrey Mattson 11/02/1995 5:46 AM EDT - 11/02/1995 11:59 PM EDT Hospital Encounter [facility]ST EPIC CON UNK Andrey Mattson Allergies Active Allergy Reactions Criticality Noted Date Comments Bacitracin-Polymyxin B Swelling 05/28/2010 Any sporins Nickel Swelling 10/14/2013 Allergic to metals Meperidine Other (See Comments) Low 07/18/2019 Pt states eyes turned green Venom-Honey Bee Swelling 08/31/2013 Ciprofloxacin Hcl Other (See Comments) 02/03/20 Bacitracin Other (See Comments) High 12/30/2021 Medications olopatadine (PATANOL) 0.1 % ophthalmic solutionIndicatio ns:Mitral valve prolapse,Aortic valve regurgitation,Tri cuspid valve regurgitation Place 1 Drop into both eyes 2 times daily. Prn Active ergocalciferol (VITAMIN D) 50,000 unit Oral Capsule TAKE 1 CAPSULE BY MOUTH ONE TIME A WEEK 5 Cap 11 5 Active atorvastatin (LIPITOR) 20 mg Oral Tablet Take 20 mg by mouth daily. Active estradiol (ESTRACE) 0.01 % (0.1 mg/gram) Vagl CreamIndications: Atrophy of vagina Do not use Applicator. Apply pea-size amount with fingertip nightly x2 weeks, then apply 2-3 times per week thereafter 1 Tube 3 9 Active polyethylene glycol (GLYCOLAX, MIRALAX) 17 gram Oral Powder in Packet Take 17 g by mouth 2 times daily. 60 Packet 1 0 Active amLODIPine (NORVASC) 10 mg Oral Tablet Take 1 Tablet by mouth daily. 4 Active losartan (COZAAR) 100 mg Oral Tablet Take 1 Tablet by mouth daily. Restart 4 Active aspirin 81 mg Oral tablet Take 1 Tablet by mouth daily. Hold until Thursday 4 Active Additional Information Patient taking differently:81 mg OralTWICE WEEKLY (), Hold until Thursday, Reported on 11/09/2024 SYNTHROID 100 mcg Oral Tablet Take 100 mcg by mouth daily. 4 Active famotidine (PEPCID) 40 mg Oral Tablet Take 40 mg by mouth. 4 Active diclofenac (VOLTAREN) 1 % Top Gel Apply topically as needed. Active triamcinolone (NASACORT) 55 mcg Nasl Aerosol, [place] 2 Sprays by Nasal route daily. 16.5 g 5 5 Active Additional Information Patient not taking.Reported on 11/09/2024 pantoprazole (PROTONIX) 40 mg Oral Tablet, Delayed Release (E.C.) Take 40 mg by mouth daily. 5 Active sulfamethoxazole- trimethoprim (BACTRIM DS) 800-160 mg Oral Tablet Take 1 Tablet by mouth 2 times daily. Active Active Problems Problem Noted Date Diagnosed Date Acute blood loss anemia 09/08/2023 Hypokalemia 09/08/2023 Gastrointestinal hemorrhage, unspecified gastrointestinal hemorrhage type 09/06/2023 Rectocele 04/26/2019 Overview (04/26/2019): Added automatically from request for surgery [id number] Overactive bladder 04/26/2019 Overview (04/26/2019): Added automatically from request for surgery [id number] Incomplete bladder emptying 04/26/2019 Overview (04/26/2019): Added automatically from request for surgery [id number] Cystocele, midline 04/26/2019 Overview (04/26/2019): Added automatically from request for surgery [id number] Stress incontinence 04/26/2019 Overview (04/26/2019): Added automatically from request for surgery [id number] Vitamin D deficiency 01/10/2014 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 PTC, [id number] Stage I Mitral valve prolapse Overview (04/15/2012): mild Aortic valve regurgitation Overview (04/15/2012): mild Tricuspid valve regurgitation Overview (04/15/2012): mild Post-surgical hypothyroidism Diverticulosis Osteopenia Subclinical hyperthyroidism, iatrogenic Family History Medical History Relation Name Comments Diabetes Brother Heart Attack Brother Heart Disease Brother High Blood Pressure Brother Kidney Disease Brother Cancer Father Lung Cancer Father Dementia Mother Depression Mother Relation Name Status Comments Brother Alive Father Mother Alive Sister Alive Social History Smoking Status as of 02/28/2025 Tobacco Use Types Packs/Day Years Used Date Smoking Tobacco: Never Assessed [facility] Utilities Answer Date Recorded In the past 12 months has [employer], gas, oil, or water [employer] threatened to shut off services in your [...] Date Recorded PHQ-2 Total Score 0 09/07/2023 [facility] - Occupational Stress [...] money to get more. Never true 09/07/2023 [facility] IP Transportation Answer D ate Recorded In the past 12 months, has l ack of reliable transportation kept you from medical appointments, meetings, work or from getting things needed for daily living? No 09/07/2023 Sex and Gender Information Value Date Recorded Sex Assigned at Not on file Legal Sex Female 12:56 PM EDT Gender Identity Not on file Sexual Orientation Not on file Last Filed Vital Signs Vital Sign Reading Time Taken Comments Blood Pressure 120/70 11/09/2024 1:09 PM EDT Pulse 92 11/09/2024 1:09 PM EDT Temperature 36.3 C (97.3 F) 09/13/2024 8:56 AM EDT Respiratory Rate 16 09/08/2023 12:11 PM EDT Oxygen Saturation 97% 09/08/2023 12:11 PM EDT Inhaled Oxygen Concentration - - Weight 61.2 kg (135 lb) 11/09/2024 1:09 PM EDT Height 165.1 cm (5' 5 ) 11/09/2024 1:09 PM EDT Body Mass Index 22.47 11/09/2024 1:09 PM EDT Plan of Treatment Upcoming Encounters Date Type Department Care Team (Late st Contact Info) Description 06/27/2025 10:30 AM EST Appointment [facility] VASCULAR LAB [facility] [place] [address] Stephon Galan MD [address] [place] [address] [address] [place], [place] [address] 11/10/2025 1:30 PM EDT Office Visit [facility] [id number] [address] Stephon Galan MD [address] [place] [address] [place] [address] Medical Devices Implanted Type Area Air Technician Device Identifier Shelf Expiration Date Model / Serial / Lot System Sling Desara Blue Short Suture - [id number] Implanted:Qty: 1 on 07/19/2019 by Hanna Iglesias MD at [facility] N/A: Vagina [facility] MEDICAL 05/28/2020 [facility]-[id number] / / [id number] Mesh Poly Lightweight Flex Str 10cmw X 22 [facility] - [id number] Implanted:Qty: 1 on 07/19/2019 by Hanna Iglesias MD at [facility] N/A: Vagina [employer] 11/12/2023 [facility]-[id number] / / [id number] Procedures Procedure Name Priority Date/Time Associated Diagnosis Comments CT SINUS LAND ZBIGNIEW WO CONTRAST Routine 10/21/2024 12:38 PM EDT Nasal congestion Acute recurrent sinusitis, unspecified location EC ECHOCARDIOGRAM COMPLETE W DOPPLER AND COLOR FLOW MAPPING Routine 08/31/2024 1:07 PM EDT Nonrheumatic aortic valve insufficiency Gastrointestinal hemorrhage, unspecified gastrointestinal hemorrhage type RI ARTHROCENTESIS ASPIR&/INJ MAJOR JT/BURSA W/O US Routine 11/12/2023 9:30 AM EDT Biceps tendinitis of left upper extremity MM MAMMO DIGITAL ELINA SCREEN BILAT Routine 11/11/2023 11:17 AM EDT Screening mammogram for breast cancer XR SHOULDER LEFT 3 VIEWS Routine 11/05/2023 10:04 AM EDT Acute pain of left shoulder COLONOSCOPY Routine 09/08/2023 10:56 AM EDT Gastrointestinal hemorrhage, unspecified gastrointestinal hemorrhage type INTRAOP AIRWAY PLACEMENT Routine 09/08/2023 10:15 AM EDT BASIC METABOLIC PANEL Early AM 09/08/2023 7:27 AM EDT CBC Early AM 09/08/2023 7:27 AM EDT HEMOGLOBIN AND HEMATOCRIT Timed 09/08/2023 1:29 AM EDT HEMOGLOBIN AND HEMATOCRIT Timed 09/07/2023 7:36 PM EDT ECG AND WAVEFORMS - TELEMETRY Routine 09/07/2023 7:30 PM EDT HEMOGLOBIN AND HEMATOCRIT Timed 09/07/2023 1:40 PM EDT HEPATIC FUNCTION PANEL Early AM 09/07/2023 8:24 AM EDT BASIC METABOLIC PANEL Early AM 09/07/2023 8:24 AM EDT CBC Early AM 09/07/2023 8:24 AM EDT ECG AND WAVEFORMS - TELEMETRY Routine 09/07/2023 7:00 AM EDT HEMOGLOBIN AND HEMATOCRIT Timed 09/07/2023 1:23 AM EDT HEMOGLOBIN AND HEMATOCRIT Timed 09/06/2023 10:54 PM EDT IP CONSULT TO NUTRITION Routine 09/06/2023 9:11 PM EDT IP CONSULT TO GI Routine 09/06/2023 7:22 PM EDT Procedure Note - Eduardo Saleh MD PHD - 09/07/2023 9:06 AM EDTThis note is in progress. GI Consultation: Noemi Huffman is a 77 y.o. female asked to see us in consultation Kyaw Jeronimo MD & Dago Vernon MD for evaluation of GIB. Mrs. Huffman is a 77 y.o. female with a pmhx of hypothyroidism,diverticulosis, HTN, HLD, OA, constipation. The pt. presented to the EDwith a cc blood in stool. The pt reports yesterday that she had 6 episodesof dark red, loose stool. She denies nausea, vomiting or abdominal pain.Associated symptoms include abdominal cramping. . Denies having hadsimilar episodes in the past.She reports chronic constipation, notcurrently on a bowel regimen. She's was recently taking NSAIDs for shoulder pain, stopped about a weekago, she is on PPI daily. Denies epigastric pain, dysphagia or GERDsymptoms. Hgb 10.5 on admission, 8.8 this AM. Last episode of blood in stool wasyesterday afternoon. She denies abdominal pain. CT acute GI Bleed protocol with hyperemia portion of the ascending colon,angiodysplasia leading consideration per radiology impression. Reports colonoscopy greater than 10 years ago. Report hx of diverticulosis and hemorrhoids. Medications Prior to Admission Medication Sig Dispense Refill Last Dose amLODIPine (NORVASC) 10 mg Oral Tablet Take 10 mg by mouth daily. Takeone tablet by mouth one time a day for 10 days 09/06/2023 at am aspirin 81 mg tablet Take 81 mg by mouth daily. 09/06/2023 at am atorvastatin (LIPITOR) 20 mg Oral Tablet Take 20 mg by mouth daily.09/06/2023 at am diclofenac (VOLTAREN) 75 mg Oral Tablet, Delayed Release (E.C.) Take 75mg by mouth 4 times daily. Pt reports she only takes once in the AM andPM. 09/06/2023 at am ergocalciferol (VITAMIN D) 50,000 unit Oral Capsule TAKE 1 CAPSULE BYMOUTH ONE TIME A WEEK 5 Cap 11 Taking estradiol (ESTRACE) 0.01 % (0.1 mg/gram) Vagl Cream Do not useApplicator. Apply pea-size amount with fingertip nightly x2 weeks, thenapply 2-3 times per week thereafter 1 Tube 3 Taking lidocaine (LIDODERM) 5 % Top Adhesive Patch, Medicated Place 1 Patch ontothe skin once. Places on left upper arm for pain. 09/06/2023 losartan (COZAAR) 100 mg Oral Tablet Take 100 mg by mouth daily.09/06/2023 at am pantoprazole (PROTONIX) 40 mg Oral Tablet, Delayed Release (E.C.) Take 40mg by mouth daily. 09/06/2023 SYNTHROID 112 mcg Oral Tablet Take 112 mcg by mouth daily. 09/06/2023 [id number] docusate sodium (COLACE) 100 mg Oral Capsule Take 1 Cap by mouth 2 timesdaily. (Patient not taking: Reported on 04/09/2023) 60 Cap 1 ibuprofen (ADVIL;MOTRIN) 600 mg Oral Tablet Take 1 Tab by mouth every 6hours as needed for Pain. 120 Tab 0 Unknown ibuprofen (ADVIL;MOTRIN) 200 mg tablet Restart in 4 days prn (Patient nottaking: Reported on 09/06/2023) Unknown LEVOthyroxine (SYNTHROID) 88 mcg Oral Tablet Take 112 mcg by mouth daily. loratadine (CLARITIN) 10 mg Oral Tablet Take 10 mg by mouth as needed.Unknown nitrofurantoin (MACRODANTIN) 50 mg Oral Capsule Take 1 Cap by mouthnightly. (Patient not taking: Reported on 04/09/2023) 30 Cap 12 olopatadine (PATANOL) 0.1 % ophthalmic solution Place 1 Drop into botheyes 2 times daily. Prn Unknown omeprazole (PRILOSEC) 20 mg Take 20 mg by mouth as needed. (Patient nottaking: Reported on 09/06/2023) Not Taking oxybutynin (DITROPAN-XL) 10 mg Oral Tablet Extended Rel 24 hr Take 1 Tabby mouth daily. 30 Tab 2 polyethylene glycol (GLYCOLAX, MIRALAX) 17 gram Oral Powder in PacketTake 17 g by mouth 2 times daily. (Patient not taking: Reported on04/09/2023) 60 Packet 1 Not Taking Medication: atorvastatin 20 mg Oral Daily LEVOthyroxine 112 mcg Oral Daily pantoprazole (PROTONIX) 40 mg Intravenous BID sodium chloride 0.9 % 75 mL/hr at 09/07/23 0808 Allergies: Allergies Allergen Reactions Ciprofloxacin Hcl Other (See Comments) Nickel Swelling Allergic to metals Polysporin [Bacitracin-Polymyxin B] Swelling Any sporins Venom-Honey Bee Swelling Demerol [Meperidine] Other (See Comments) Pt states eyes turned green Immunizations: Immunization History Administered Date(s) Administered Moderna SARS-CoV-2 Booster Vaccine 18+ Yrs (Light Blue Border) 06/11/2021 Moderna SARS-CoV-2 Vaccine 12+ Yrs (Light blue border) 07/26/2020,08/24/2020 Family history, past medical history, and social history are reviewedas below. Past Medical History: Past Medical History: Diagnosis Date Anxiety Aortic valve regurgitation Arthritis knees Diverticulosis Goiter Heart murmur mitral valve prolapse dx 2008, was having jaw pain, saw Dr. Ramos Heartburn and gas Hyperlipidemia Hypertension Mitral valve prolapse Osteoarthritis Osteopenia Post-surgical hypothyroidism October 2013 Thyroid cancer (HCC) October 2013 Follicular variant PTC, [id number] Stage I Tricuspid valve regurgitation Urinary tract infection last one 07/05 Vitamin D deficiency 01/10/2014 Past Surgical History: Past Surgical History: Procedure Laterality Date BREAST SURGERY biopsy CHOLECYSTECTOMY, LAPAROSCOPIC 06/05/2010 LAPAROSCOPIC CHOLECYSTECTOMY POSSIBLE OPEN - SCIP performed by DARCI CAMARA at [facility] MAIN OR COLPOPEXY N/A 07/19/2019 Robotic Sacrocolpopexy, Placement of Transobturator Urethral Mesh Sling,Posterior Repair, Cystoscopy ; Surgeon: Hanna Iglesias MD; Location: [facility] MAIN OR; Service:Robotics CYSTOCELE REPAIR N/A 07/19/2019 Surgeon: Hanna Iglesias MD; Location: [facility] MAIN OR; Service:Robotics CYSTOSCOPY N/A 07/19/2019 Surgeon: Hanna Iglesias MD; Location: [facility] MAIN OR; Service:Robotics HYSTERECTOMY OVARY REMOVAL THYROIDECTOMY Bilateral 10/20/2013 RIGHT THYROID LOBECTOMY with isthmusectomy; Surgeon: Carlos Sanders MD;Location: [facility] MAIN OR; Service: ENT THYROIDECTOMY N/A 11/17/2013 COMPLETION THYROIDECTOMY; Surgeon: Carlos Sanders MD; Location: [facility] OR; Service: ENT TONSILLECTOMY URETHROPEXY N/A 07/19/2019 Surgeon: Hanna Iglesias MD; Location: [facility] MAIN OR; Service:Robotics Family History: Family History Problem Relation Age of Onset Cancer Father Lung Cancer Father Diabetes Brother Heart Disease Brother Heart Attack Brother High Blood Pressure Brother Kidney Disease Brother Dementia Mother Depression Mother Social History: Social History Tobacco Use Smoking status: Never Smokeless tobacco: Never Vaping Use Vaping Use: Never used Substance Use Topics Alcohol use: Yes Comment: rare Drug use: No ROS Constitutional: Denies fever,sweats, chills or weight loss Eyes: Denies change in visual acuity HENT: Denies hearing loss or dizziness Respiratory: Denies cough or shortness of breath Cardiovascular: Denies edema or chest pain : Denies dysuria, hematuria, urgency or frequency Musculoskeletal: Denies back pain or joint pain Integument: Denies rash Neurologic: Denies headache, previous stroke, TIA, confusion Endocrine: Denies polyuria or polydipsia Lymphatic: Denies swollen glands Psychiatric: Denies depression or anxiety Hematologic: Denies previous anemia or easy bruising All other review of systems negative, except for those noted. PHYSICAL EXAM: VITAL SIGNS: BP 98/66 (BP Location: Right arm, Patient Position: SemiFowlers) Pulse 78 Temp 98.3 F (36.8 C) (Oral) Resp 16 Ht 5'5 (1.651 m) Wt 135 lb (61.2 kg) SpO2 98% BMI 22.47 kg/m Constitutional: No acute distress. HENT: Normocephalic. Atraumatic. Bilateral external ears normal,Oropharynx moist. No oral exudate. Nose normal. Eyes: No Scleral icterus Neck: No Cervical or supraclavicular nodes Lymphatic: No lymphadenopathy noted. Cardiovascular: HRR Thorax & Lungs: No respiratory distress Abdomen: Soft, non-tender. Bowel sounds are normoactive without bruits.No guarding, spasm or rebound. No hepatomegaly. No splenomegaly. Noascites Rectal: Deferred. Skin: Warm, dry. No erythema. No rash. Extremities: Intact distal pulses, No deformity. No edema. Neurologic: Alert & oriented x 3, No Asterixis RESULTS Lab Results Component Value Date ALT 19 09/06/2023 AST 20 09/06/2023 ALKPHOS 70 09/06/2023 PROT 6.1 (L) 09/06/2023 INR 1.04 09/06/2023 Lab Results Component Value Date WBC 7.1 09/07/2023 HGB 8.8 (L) 09/07/2023 HCT 26.9 (L) 09/07/2023 MCV 86.8 09/07/2023 PLT 286 09/07/2023 Lab Results Component Value Date CREATININE 0.69 09/06/2023 BUN 25 (H) 09/06/2023 NA 142 09/06/2023 K 4.4 09/06/2023 CL 109 (H) 09/06/2023 CO2 22 09/06/[address] ACUTE GI BLEED PROTOCOL Result Date: 09/06/2023 CLINICAL HISTORY: -gi bleed. COMPARISON: Report from 2009. TECHNIQUE: CTACUTE GI BLEED PROTOCOL on 09/06/2023 5:59 PM. 100 mL of intravenousIsovue-370 was administered. Dose 1 : CT DLP Total : 961.01 mGycm DLPSpiral Max : 398.78 mGycm Maximum CTDI Vol : 9.07 mGy SSDE : 6.4397 mGySSDE Diameter : 44.8 cm SSDE Source : Lat FINDINGS: Abdomen: The lungbases are clear. The visualized portions of the heart are normal. There luis f small hiatal hernia. Simple cysts in the liver and left kidney. Thegallbladder has been removed. The spleen, pancreas, adrenal glands, andright kidney are normal. The stomach and caliber of the small bowel arenormal and there is no evidence of active bleeding within thesestructures. The caliber of the aorta is normal. There are no enlargedabdominal lymph nodes or free fluid. Degenerative changes are in thespine. Pelvis: There is hyperemia of portions of the ascending colon. Thecaliber of the colon is normal. The appendix is unremarkable. The uterushas been removed. The urinary bladder and adnexa are normal. There are noenlarged pelvic lymph nodes or free fluid. Degenerative changes are in thebony pelvis. 1. Hyperemia portions of the ascending colon. This could be the source ofthe patient's bleeding. Angiodysplasia would be a leading differentialconsideration. 2. Incidental findings as described Note: Radiology resultsneed to be interpreted within a comprehensive clinical context. If youhave questions about the radiology report, please contact the office ofthe ordering clinician. ASSESSMENT 1. Acute blood loss anemia with hematochezia -several episodes of maroon colored stool yesterday, no additionalbleeding this AM . -hgb 10.5> 8.8 -CT acute GIB yesterday with hyperemia portion of the ascending colon,angiodysplasia of ascending colon. -colonoscopy 10 years ago, hx of diverticulosis, hx of hemorrhoids. 2..Chronic constipation PLAN 1. Ok for clears for now.NPO at midnight 2. Start miralax BID 3. Trend Hgb, transfuse for hgb <7. Monitor stool 4. PPI BID 5. Plan for Colonoscopy tomorrow. Start bowel prep this afternoon. 1. The patient indicates understanding of these issues and agrees withthe plan. 2. I reviewed the patient's medical information and medical history. 3. I have reviewed the past medical, family, and social history sectionsincluding the medications and allergies listed in the above medicalrecord. Electronically signed by: Lydia Ribeiro APRN, 09/07/2023 9:06 AM Attending Addendum: I have seen this patient face to face. I have reviewed the chiefcomplaint, history of present illness, vital signs, I/O, physicalexamination, laboratory and radiographic studies. I have reviewed the pastmedical, family, and social history sections including the medications andallergies listed in the medical record. I have examined this patient, andparticipated in the care of this patient. This patient was seen incoordination with ARIS Ribeiro . Subjective: She is a 77 F who has a past medical history of Anxiety,Aortic valve regurgitation, Arthritis, Diverticulosis, Goiter, Heartmurmur, Heartburn, Hyperlipidemia, Hypertension, Mitral valve prolapse,Osteoarthritis, Osteopenia, Post-surgical hypothyroidism (October 2013),Thyroid cancer (HCC) (October 2013), Tricuspid valve regurgitation, Urinarytract infection, and Vitamin D deficiency (01/10/2014) who presents forevaluation of rectal bleeding. She reports that yesterday she had severalepisodes of bloody stools. She reports that the stools were dark red incolor and was associated with minimal right-sided discomfort. She reportsshe has never had any rectal bleeding previously. She had a colonoscopylast over 10 years ago, she reports that she has had a colonoscopiesduring her lifetime. She reports that she has had polyps in the past.She denies any family history of colon cancer. She does not take anyanticoagulants or antithrombotics other than the baby aspirin. She hasnot had any bowel movement since yesterday afternoon. She reports havingissues with chronic constipation. A CT-A/P (acute GI bleed) showed somehyperemia in the ascending colon with suspicion for bleeding fromangiodysplasia. Physical Exam: CONSTITUTIONAL: No apparent distress, and appears stated age EYES: EOMI, no scleral icterus ENT/MOUTH: MMM CARDIOVASCULAR: Regular rate and rhythm, normal S1 and S2, and no murmurnoted RESPIRATORY: No increased work of breathing, clear to auscultationbilaterally GI: Soft, non-distended, non-tender : Deferred MUSCULOSKELETAL: No redness, warmth, or swelling of the joints. SKIN: Normal skin color, texture, turgor; no jaundice. NEUROLOGIC: Patient is awake, alert, and cooperative. Cranial nervesII-XII are grossly intact. PSYCHIATRIC: Normal affect Assessment / Plan: She presents for evaluation of hematochezia. With her reporting passageof dark red stools, I would be less suspicious of hemorrhoidal bleedingand more concerned of possible proximal GI bleeding. Her CT scan suggestpossible bleeding from a proximal colon AVM. However, as she has also nothad a colonoscopy for over 10 years, I would also be suspicious of otherlesions such as large polyps or malignancy. I discussed proceeding with acolonoscopy to further evaluate her symptoms. She and her family atbedside are in agreement and agreeable. We will plan on a colonoscopytomorrow morning. Continue clear liquid diet today. Split dose bowelprep to start this evening. Eduardo Saleh MD PHD [facility] Gastroenterology ADMIT Routine 09/06/2023 6:[address] ACUTE GI BLEED PROTOCOL STAT 09/06/2023 5:59 PM EDT TSH REFLEX TO FT4 STAT 09/06/2023 4:53 PM EDT PARTIAL THROMBOPLASTIN TIME STAT 09/06/2023 4:53 PM EDT PT / INR STAT 09/06/2023 4:53 PM EDT COMPREHENSIVE METABOLIC PANEL STAT 09/06/2023 4:53 PM EDT CBC WITH DIFF STAT 09/06/2023 4:53 PM EDT US AAA SCREENING EXAM MEDICARE Routine 07/17/2023 7:20 AM EST Intra-abdominal and pelvic swelling, mass and lump, unspecified site Family history of aortic aneurysm History of thyroid cancer Gastroesophageal reflux disease, unspecified whether esophagitis present EC ECHOCARDIOGRAM COMPLETE W DOPPLER AND COLOR FLOW MAPPING Routine 02/20/2023 12:01 PM EDT Encounter to establish care Heart murmur Right carotid bruit VA US CAROTID DUPLEX BILATERAL Routine 02/20/2023 10:52 AM EDT Encounter to establish care Heart murmur Right carotid bruit XR FOOT LEFT AP LATERAL AND OBLIQUE STAT 02/02/2023 12:53 PM EDT Left foot pain POCT EKG Routine 01/08/2023 1:38 PM EDT Encounter to establish care THYROID STIMULATING HORMONE Routine 09/23/2021 9:30 AM EDT Regular check-up LIPID PANEL REFLEX Routine 09/23/2021 9:30 AM EDT Regular check-up COMPREHENSIVE METABOLIC PANEL Routine 09/23/2021 9:30 AM EDT Regular check-up CBC Routine 09/23/2021 9:30 AM EDT Regular check-up THYROID STIMULATING HORMONE Routine 09/13/2020 9:17 AM EDT Essential hypertension COMPREHENSIVE METABOLIC PANEL Callback 09/13/2020 9:17 AM EDT Essential hypertension LIPID PANEL REFLEX Routine 09/13/2020 9:17 AM EDT Essential hypertension CBC Callback 09/13/2020 9:17 AM EDT Essential hypertension POCT URINALYSIS DIPSTICK Routine 08/30/2019 12:04 PM EDT Urinary frequency URINE CULTURE (NO STAIN) Routine 08/30/2019 11:59 AM EDT Urinary frequency SCANNED RHYTHM STRIPS 07/23/2019 1:23 PM EST CBC Timed 07/20/2019 6:28 AM EST ADMIT Routine 07/19/2019 11:35 AM EST INTRAOP AIRWAY PLACEMENT Routine 07/19/2019 8:14 AM EST TRANSOBTURATOR TAPE URETHROPEXY-TOT- SUBURETHRAL WITH CYSTOSCOPY 07/19/2019 7:30 AM EST Rectocele Overactive bladder Incomplete bladder emptying Cystocele, midline Stress incontinence CYSTOSCOPY 07/19/2019 7:30 AM EST Rectocele Overactive bladder Incomplete bladder emptying Cystocele, midline Stress incontinence ANTERIOR AND POSTERIOR REPAIR (CYSTOCELE AND RECTOCELE REPAIR) 07/19/2019 7:30 AM EST Rectocele Overactive bladder Incomplete bladder emptying Cystocele, midline Stress incontinence DAVINCI ROBOTIC SACRAL COLPOPEXY 07/19/2019 7:30 AM EST Rectocele Overactive bladder Incomplete bladder emptying Cystocele, midline Stress incontinence BASIC METABOLIC PANEL Routine 07/18/2019 11:17 AM EST Preop testing Overactive bladder POCT URINALYSIS DIPSTICK Routine 03/24/2019 7:30 AM EDT Urinary frequency POCT URINALYSIS DIPSTICK Routine 02/18/2019 9:52 AM EDT Urinary frequency URINALYSIS Routine 02/18/2019 9:36 AM EDT Urinary frequency URINE CULTURE (NO STAIN) Routine 02/18/2019 9:36 AM EDT Urinary frequency MM MAMMO DIGITAL SCREENING W CAD BILAT Routine 03/04/2018 10:07 AM EDT Encounter for screening for malignant neoplasm of breast DX BONE DENSITY AXIAL INCLUDING VERTEBRAL FRACTURE ASSESSMENT Routine 03/04/2018 9:40 AM EDT Postmenopausal status VITAMIN D 25 HYDROXY Routine 04/11/2015 4:20 PM EDT Vitamin D deficiency THYROID STIMULATING HORMONE Routine 04/11/2015 4:20 PM EDT Post-surgical hypothyroidism T4, FREE (THYROXINE) Routine 04/11/2015 4:20 PM EDT Post-surgical hypothyroidism US THYROID SURVEILLANCE Routine 09/26/2014 11:11 AM EDT Thyroid cancer (HCC) THYROID STIMULATING HORMONE Routine 09/26/2014 10:00 AM EDT Post-surgical hypothyroidism THYROGLOBULIN AND TG AB REFLEX MONITOR-REF LAB Routine 09/26/2014 10:00 AM EDT Thyroid cancer (HCC) T4, FREE (THYROXINE) Routine 09/26/2014 10:00 AM EDT Post-surgical hypothyroidism CALCIUM LEVEL TOTAL Routine 09/26/2014 10:00 AM EDT Thyroid cancer (HCC) VITAMIN D 25 HYDROXY Routine 04/12/2014 11:32 AM EDT Vitamin D deficiency THYROID STIMULATING HORMONE Routine 04/12/2014 11:32 AM EDT Post-surgical hypothyroidism T4, FREE (THYROXINE) Routine 04/12/2014 11:32 AM EDT Post-surgical hypothyroidism VITAMIN D 25 HYDROXY Routine 01/04/2014 11:35 AM EDT Osteopenia RENAL FUNCTION PANEL Routine 01/04/2014 11:35 AM EDT Thyroid cancer (HCC) Post-surgical hypothyroidism T4, FREE (THYROXINE) Routine 01/04/2014 11:35 AM EDT Thyroid cancer (HCC) Post-surgical hypothyroidism THYROGLOBULIN ANTIBODY -REF LAB Routine 01/04/2014 11:35 AM EDT Thyroid cancer (HCC) Post-surgical hypothyroidism THYROGLOBULIN -REF LAB Routine 01/04/2014 11:35 AM EDT Thyroid cancer (HCC) Post-surgical hypothyroidism THYROID STIMULATING HORMONE Routine 01/04/2014 11:35 AM EDT Thyroid cancer (HCC) Post-surgical hypothyroidism CALCIUM LEVEL TOTAL STAT 11/24/2013 11:17 AM EDT Hypocalcemia SCANNED PRE/POST PROCEDURES 11/21/2013 3:13 PM EDT SCANNED ANESTHESIA FORMS 11/21/2013 3:13 PM EDT SCANNED RHYTHM STRIPS 11/21/2013 3:13 PM EDT PARATHYROID HORMONE INTACT STAT 11/17/2013 1:21 PM EDT CALCIUM LEVEL TOTAL Timed 11/17/2013 11:07 AM EDT PATHOLOGY TISSUE REPORT Routine 11/17/2013 9:47 AM EDT THYROIDECTOMY 11/17/2013 8:06 AM EDT Malignant neoplasm of thyroid gland (HCC) Special Needs KATLYN CPT 87857 LAB:[facility] 11/04 DTCHART REVIEW/DATABASE PTH INTRAOPERATIVE STAT 11/17/2013 7:39 AM EDT CALCIUM LEVEL TOTAL STAT 11/17/2013 7:35 AM EDT SCANNED PRE/POST PROCEDURES 10/22/2013 9:42 AM EDT SCANNED ANESTHESIA FORMS 10/22/2013 9:42 AM EDT SCANNED RHYTHM STRIPS 10/22/2013 9:42 AM EDT PATHOLOGY TISSUE REPORT Routine 10/20/2013 10:22 AM EDT THYROIDECTOMY 10/20/2013 8:30 AM EDT Neoplasm of uncertain behavior of other and unspecified endocrine glands Special Needs KATLYN CPT; 27556 XR CHEST PA AND LATERAL PHYLLIS 10/14/2013 1:16 PM EDT DIFFERENTIAL Routine 10/14/2013 1:00 PM EDT PT / INR Routine 10/14/2013 1:00 PM EDT PARTIAL THROMBOPLASTIN TIME Routine 10/14/2013 1:00 PM EDT COMPREHENSIVE METABOLIC PANEL Routine 10/14/2013 1:00 PM EDT CBC WITH DIFF Routine 10/14/2013 1:00 PM EDT NON-MOHS SURGEON/GENERAL DERMATOLOGIST CYTOLOGY REPORT Routine 09/23/2013 1:01 PM EDT US GUIDED THYROID BIOPSY Routine 09/23/2013 12:59 PM EDT Multiple thyroid nodules US THYROID Routine 08/29/2013 10:20 AM EDT Neck fullness DX BONE DENSITY AXIAL SKELETON Routine 05/09/2013 2:57 PM EST Post-menopausal Screening MM MAMMO DIGITAL SCREENING W CAD BILAT Routine 05/09/2013 2:01 PM EST Other screening mammogram EC ECHOCARDIOGRAM COMPLETE W DOPPLER AND COLOR FLOW MAPPING Routine 04/23/2012 10:33 AM EDT Mitral valve prolapse Aortic valve regurgitation Tricuspid valve regurgitation SCANNED ANESTHESIA FORMS 06/08/2010 12:00 AM EST SCANNED PRE/POST PROCEDURES 06/08/2010 12:00 AM EST SCANNED OR REPORT 06/06/2010 12:00 AM EST PATHOLOGY TISSUE REPORT Routine 06/05/2010 11:50 AM EST LAPAROSCOPIC CHOLECYSTECTOMY POSSIBLE OPEN 06/05/2010 9:23 AM EST Gallbladder polyps and cholelitiasis Special Needs CPT 27513 KARENADDED PROCEDURE SG 12-15 DIFFERENTIAL Pre-Op 05/28/2010 9:58 AM EST BILIRUBIN TOTAL Pre-Op 05/28/2010 9:58 AM EST ALKALINE PHOSPHATASE Pre-Op 05/28/2010 9:58 AM EST BASIC METABOLIC PANEL Pre-Op 05/28/2010 9:58 AM EST CBC WITH DIFF Pre-Op 05/28/2010 9:58 AM EST EK EKG 12 LEAD Pre-Op 05/28/2010 9:51 AM EST US ABDOMEN LIMITED Routine 07/26/2009 12:[address] ABD/PELVIS CIGAR MAKING MACHINE OPERATOR Routine 07/14/2009 2:58 PM EST MM DIG DIAG CHALINO PANEL W/CAD Routine 07/06/2009 2:37 PM EST EK EKG REG Routine 07/28/2008 10:38 AM EST EK EKG REG Routine 07/27/2008 7:09 PM EST XX CHEST PORTABLE Routine 07/27/2008 5:50 PM EST Results * CT SINUS LAND ZBIGNIEW WO CONTRAST (10/21/2024 12:38 PM EDT) Anatomical Region Laterality Modality Head Computed Tomogra phy 10/21/2024 12:3 8 PM EDT Impressions 10/21/2024 3:17 PM EDT Mild bilateral maxillary sinus mucosal thickening. Elongated styloid processes. Advanced discogenic cervical degeneration. Anatomic details above. Narrative 10/21/2024 3:[address] SINUS LAND ZBIGNIEW WO CONTRAST 10/21/2024 12:38 PM CLINICAL HISTORY: R09.81-Nasal [id number]-CM J01.91-Acute recurrent sinusitis, [id number]. COMPARISON: None. PROCEDURE COMMENTS: Volumetric helical scanning of the paranasal sinuses. Multiplanar reconstructions at bone and soft tissue algorithm. Dose 1 : CT DLP Total : 355.58 mGycm DLP Spiral Max : 351.58 mGycm Maximum CTDI Vol : 16.72 mGy FINDINGS: There is mild mucosal thickening in the bases of the maxillary sinuses, fairly equal on each side. The ostiomeatal complexes are patent. The paranasal sinuses are otherwise clear. No mass, fluid level, or bone erosion. Mild leftward nasal septal deviation. Small right conchal bullosa. No nasal polyp is seen. An impacted/nonruptured right anterior maxillary tooth is incidentally noted. Small torus palatinus and torus mandibularis. Tympanomastoid cavities clear. Prior bilateral cataract surgery. Orbits are otherwise unremarkable. Prominent discogenic degeneration included cervical spine at C3-4, C4-5, and C5-6 and mild to moderate left-sided facet arthropathy at C3-4 with slight degenerative listhesis at this level. Very small sclerotic focus in the base of the odontoid process consistent with an incidental bone island. Incidental mild hyperostosis frontalis interna. Elongated styloid processes, nonspecific though can be associated with clinical [place] syndrome. Very mild calcific plaque regional to both common carotid artery bifurcations. Surgical anatomy below: Cribriform: No dehiscence Olfactory recess Keros class: Right: Type II (4-7mm.) Left: Type II (4-7mm.) Lamina papyracea: Intact bilaterally. Radha cell: None. Uncinate impingement on orbital wall: None. Anterior ethmoidal artery: Anterior ethmoidal artery notch abuts the fovea ethmoidalis bilaterally. Notches appear protected. Sphenoid pneumatization is sellar. Anterior clinoid pneumatization: No pneumatization. Onodi cells: No posterior extension of posterior ethmoid air cells above the sphenoid margin. Sphenoid dehiscence: No carotid canal or optic canal dehiscence. No septal insertion on either carotid canal. Procedure Note Omega Cortes MD - 10/21/2024 CT SINUS LAND ZBIGNIEW WO CONTRAST 10/21/2024 12:38 PM CLINICAL HISTORY: R09.81-Nasal [id number]-OID-22-CM J01.91-Acute recurrent sinusitis, [id number]-TPU-52-CM. COMPARISON: None. PROCEDURE COMMENTS: Volumetric helical scanning of the paranasalsinuses. Multiplanar reconstructions at bone and soft tissue algorithm. Dose 1 : CT DLP Total : 355.58 mGycm DLP Spiral Max : 351.58 mGycm Maximum CTDI Vol : 16.72 mGy FINDINGS: There is mild mucosal thickening in the bases of the maxillary sinuses,fairly equal on each side. The ostiomeatal complexes are patent. The paranasalsinuses are otherwise clear. No mass, fluid level, or bone erosion. Mild leftwardnasal septal deviation. Small right conchal bullosa. No nasal polyp is seen.An impacted/nonruptured right anterior maxillary tooth is incidentally noted.Small torus palatinus and torus mandibularis. Tympanomastoid cavities clear.Prior bilateral cataract surgery. Orbits are otherwise unremarkable. Prominent discogenic degeneration included cervical spine at C3-4, C4-5, and C5-6and mild to moderate left-sided facet arthropathy at C3-4 with slightdegenerative listhesis at this level. Very small sclerotic focus in the base of theodontoid process consistent with an incidental bone island. Incidental mildhyperostosis frontalis interna. Elongated styloid processes, nonspecific though canbe associated with clinical [place] syndrome. Very mild calcific plaqueregional to both common carotid artery bifurcations. Surgical anatomy below: Cribriform: No dehiscence Olfactory recess Keros class: Right: Type II (4-7mm.) Left: Type II(4-7mm.) Lamina papyracea: Intact bilaterally. Radha cell: None. Uncinate impingement on orbital wall: None. Anterior ethmoidal artery: Anterior ethmoidal artery notch abuts thefovea ethmoidalis bilaterally. Notches appear protected. Sphenoid pneumatization is sellar. Anterior clinoid pneumatization: No pneumatization. Onodi cells: No posterior extension of posterior ethmoid air cells abovethe sphenoid margin. Sphenoid dehiscence: No carotid canal or optic canal dehiscence. Noseptal insertion on either carotid canal. IMPRESSION: Mild bilateral maxillary sinus mucosal thickening. Elongated styloid processes. Advanced discogenic cervical degeneration. Anatomicdetails above. Zehra Cloon PA-C IMG CT ORDERABLES F inal Result * EC ECHOCARDIOGRAM COMPLETE W DOPPLER AND COLOR FLOW MAPPING (08/31/2024 1:07 PM EDT) Only the most recent of3 resultswithin the time period is included. Ejection Fraction 60-65% PYRAMIS MITRAL REGURGITATION mild PYRAMIS AORTIC STENOSIS no PYRAMIS LV DIASTOLIC PLAX 4.81 cm PYRAMIS Anatomical Region Laterality Modality Electrocardiogra phy 08/31/2024 12:1 4 PM EDT Impressions 09/01/2024 12:28 PM EDT Conclusions * Left ventricular function is normal with an estimated ejection fraction of 60-65%. * There is mild to moderate aortic valve regurgitation. * Left atrial chamber dimension is moderately enlarged. * There is mild mitral valve regurgitation. Narrative Procedure Note Stephon Galan MD - 09/01/2024 IMPRESSION Conclusions * Left ventricular function is normal with an estimated ejectionfraction of 60-65%. * There is mild to moderate aortic valve regurgitation. * Left atrial chamber dimension is moderately enlarged. * There is mild mitral valve regurgitation. Stephon Galan MD IMG ECHO ORDERABLES Nelly l Result * RI ARTHROCENTESIS ASPIR&/INJ MAJOR JT/BURSA W/O US (11/12/2023 9:30 AM EDT) Narrative ORTHOCINCY - 11/12/2023 9:30 AM EDT Hal Marcelo DO 11/12/2023 10:13 AM Large Joint Injection/Arthrocentesis: L glenohumeral on 11/12/2023 9:30 AM Indications: pain and joint swelling Details: 22 G needle, anterior approach Medications: 2 mL lidocaine 1% 10 mg/mL (1 %); 40 mg triamcinolone acetonide 40 mg/mL; 2 mL BUPivacaine HCl 0.25 % (2.5 mg/mL) Procedure, treatment alternatives, risks and benefits explained, specific risks discussed. Consent was given by the patient. Patient was prepped and draped in the usual sterile fashion. us Hal Marcelo DO PROCEDURE/MINOR SURGICAL ORDERA BLES Final Result ORTHOCINCY * MM MAMMO DIGITAL ELINA SCREEN BILAT (11/11/2023 11:17 AM EDT) Anatomical Region Laterality Modality Breast Bilateral Mammography 11/11/2023 2:39 PM EDT Impressions 11/11/2023 2:39 PM EDT Negative ([id number]-0) ~ RECOMMENDATION: Routine screening mammogram in 1 year. Tomosynthesis recommended ~ DISCLAIMER * Any patient with a palpable abnormality, unexplained by breast imaging, should be managed on clinical basis by the attending physician. * Breast imaging has a false negative rate of 15%. * The patient was notified by mail of the results of this examination. *The patient's information was entered into a reminder system with a target due date for the next mammogram, in accordance with the [place] [employer] and the Society of Breast Imaging recommendations. Narrative 11/11/2023 2:39 PM EDT Procedure:MM MAMMO DIGITAL ELINA SCREEN BILAT ~ Reason for exam: screening, asymptomatic. Z12.31-Encounter for screening mammogram for malignant neoplasm of eyiuws-ACN-19-CM ~ MM MAMMO DIGITAL ELINA SCREEN BILAT Bilateral CC and MLO view(s) were taken. There are scattered fibroglandular densities. Prior study comparison: Compared with prior studies the most recent being 03/04/18, 05/09/13 No mammographic evidence of malignancy. ~ Procedure Note Dereck Rodriguez MD - 11/11/2023 Procedure:MM MAMMO DIGITAL ELINA SCREEN BILAT ~ Reason for exam: screening, asymptomatic. Z12.31-Encounter for screening mammogram for malignant neoplasm of [id number]-FOW-42-CM ~ MM MAMMO DIGITAL ELINA SCREEN BILAT Bilateral CC and MLO view(s) were taken. There are scattered fibroglandular densities. Prior study comparison: Compared with prior studies the most recentbeing 03/04/18, 05/09/13 No mammographic evidence of malignancy. ~ IMPRESSION: Negative ([id number]-[id number]-4) ~ RECOMMENDATION: Routine screening mammogram in 1 year. Tomosynthesis recommended ~ DISCLAIMER * Any patient with a palpable abnormality, unexplained by breast imaging, should be managed on clinical basis by the attending physician. * Breast imaging has a false negative rate of 15%. * The patient was notified by mail of the results of this examination. *The patient's information was entered into a reminder system with atarget due date for the next mammogram, in accordance with the [employer] [employer] and the Society of Breast Imaging recommendations. Kyaw Shook MD [facility] MAMMOGRAPHY ORDERABLES Final Result * XR SHOULDER LEFT 3 VIEWS (11/05/2023 10:04 AM EDT) Narrative Genericuser, Audit - 11/05/2023 10:04 AM EDT Please see physician's note from office encounter for x-ray imaging result Kayleigh Mason PA-C IMG DIAGNOSTIC IMAGING O RDERABLES Final Result * COLONOSCOPY (09/08/2023 10:56 AM EDT) Anatomical Region Laterality Modality Endoscopy Narrative 09/08/2023 11:54 AM EDT Table formatting from the original result was not included. Findings The bowel prep quality was good. The mucosa appeared normal in the terminal ileum. A few small ulcerations were seen in the proximal ascending colon from pinpoint to 1.5 mm. No active bleeding was seen during the colonoscopy. There were a few focal erythematous spots seen on the distal side of the ileocecal valve fold. The largest erosion and the erythematous spots were cauterized using a gold probe. The mucosa appeared normal throughout the remainder of the colon. Few diverticula of mild severity in the transverse colon and descending colon Multiple diverticula of moderate severity in the sigmoid colon and rectosigmoid No polyps were seen. Recommendation - No colon masses or AVMs seen. - A few small erosions were seen in the proximal ascending colon. It is possible that one of these erosions might have bled. Alternatively, a Dieulafoy may have been responsible for the bleeding. - Based on today's exam no further bleeding is expected. - OK to resume diet. - No new recommendations from GI standpoint. - Will sign off. Please notify if any additional questions or concerns. Indication Gastrointestinal hemorrhage, unspecified gastrointestinal hemorrhage type Staff Staff Role Zechariah Reddy MD Anesthesiologist Claudia Clayton, [employer]ER Lulu Reid RN Endoscopy Nurse Eduardo Saleh MD PHD Performing Provider Shadi Gillis RN [employer] Agent Medications See Anesthesia Record. Preprocedure A history and physical has been performed, and patient medication allergies have been reviewed. The patient's tolerance of previous anesthesia has been reviewed. The risks and benefits of the procedure and the sedation options and risks were discussed with the patient. All questions were answered and informed consent obtained. ASA 3 - Patient with severe systemic disease Details of the Procedure The patient underwent monitored anesthesia care, which was administered by an anesthesia professional. The patient's blood pressure, heart rate, level of consciousness, oxygen, respirations, ECG and ETCO2 were monitored throughout the procedure. A digital rectal exam was performed. The scope was introduced through the anus and advanced to the cecum. Retroflexion was performed in the rectum. Retroflexion was not performed due to narrow vault. Bowel prep was adequate. The patient experienced no blood loss. The procedure was moderately difficult due to angulation and tortuous colon. The patient tolerated the procedure well. There were no apparent adverse events. Diverticular disease contributed to distal colon tortuosity. Patient provided education and educated on specific discharge instructions. Patient educated on medications given during the procedure and new medications for discharge. Patient verbalizes understanding of discharge education. Patient stable and awaiting transport for discharge. Events Procedure Events Event Event Time ENDO SCOPE IN TIME 09/08/2023 10:19 AM ENDO CECUM REACHED 09/08/2023 10:32 AM ENDO SCOPE OUT TIME 09/08/2023 10:51 AM Specimens No specimens collected Anesthesia Event Time In Patient In - Proc. Room 09/07 10:12 AM Lydia Ribeiro HEAD REFRIGERATION ENGINEER ENDOSCOPY PROCEDURE O RDERABLES Final Result * INTRAOP AIRWAY PLACEMENT (09/08/2023 10:15 AM EDT) Narrative [facility] - 09/08/2023 10:15 AM EDT Claudia Clayton CRNA 09/08/2023 10:23 AM Intraop Airway Placement: Date/Time: 09/08/2023 10:15 AM Airway type: Nasal cannula salter us Zechariah Reddy MD RI ANESTHESIA Final Result [facility] [address] [place] [address] * (ABNORMAL) CBC (09/08/2023 7:27 AM EDT) Only the most recent of5 resultswithin the time period is included. WBC 6.8 3.7 - 10.3 x10(3)/mcL 09/08/2023 8:05 AM EDT [facility] RBC 3.16(L) 3.90 - 5.20 x10(6)/[facility] 09/08/2023 8:05 AM EDT [facility] Hgb 8.9(L) 11.2 - 15.7 g/dL 09/08/2023 8:05 AM EDT [facility] Hct 27.3(L) 34.0 - 45.0 % 09/08/2023 8:05 AM EDT [facility] MCV 86.4 80.0 - 100.0 fL 09/08/2023 8:05 AM EDT [facility] MCH 28.2 26.0 - 34.0 pg 09/08/2023 8:05 AM EDT [facility] MCHC 32.6 30.7 - 35.5 g/dL 09/08/2023 8:05 AM EDT [facility] RDW 14.1 <=14.9 % 09/08/2023 8:05 AM EDT [facility] Platelet 273 155 - 369 x10(3)/mcL 09/08/2023 8:05 AM EDT [facility] MPV 9.9 8.8 - 12.5 fL 09/08/2023 8:05 AM EDT [facility] Blood VENOUS BLOOD / Unknown Venipuncture / Unknown 09/08/2023 7:27 AM EDT 09/08/2023 7:57 AM EDT us Dago Vernon MD HEMATOLOGY ORDERABLES Final R esult [facility] [address] [facility], [place] [address] * (ABNORMAL) BASIC METABOLIC PANEL (09/08/2023 7:27 AM EDT) Only the most recent of4 resultswithin the time period is included. Sodium 143 136 - 145 mmol/L 09/08/2023 8:24 AM EDT [facility] Potassium 3.3(L) 3.5 - 5.0 mmol/L 09/08/2023 8:24 AM EDT [facility] Chloride 109(H) 98 - 107 mmol/L 09/08/2023 8:24 AM EDT [facility] Total CO2 24 22 - 29 mmol/L 09/08/2023 8:24 AM EDT [facility] Anion Gap 10 7 - 16 mmol/L 09/08/2023 8:24 AM EDT [facility] Calcium 8.4(L) 8.8 - 10.4 mg/dL 09/08/2023 8:24 AM EDT [facility] Glucose Lvl 86 70 - 99 mg/dL 09/08/2023 8:24 AM EDT [facility] BUN 8 8 - 23 mg/dL 09/08/2023 8:24 AM EDT [facility] Creatinine 0.63 0.51 - 1.30 mg/dL 09/08/2023 8:24 AM EDT [facility] eGFR (CKD-EPIcr 2020) 91 >=60 mL/min/1.7 3 m2 09/08/2023 8:24 AM EDT [facility] Comment:Estimated GFR was ca lculated using the CKD-EPIcr (2020) equation refit without race. The equation is recommended by the National [employer] - [place] [employer] Task Force. Blood VENOUS BLOOD / Unknown Venipuncture / Unknown 09/08/2023 7:27 AM EDT 09/08/2023 7:57 AM EDT us Dago Vernon MD CHEMISTRY ORDERABLES Final Re sult [facility] [address] [place] [address] , [address] [place] [phone] [facility] [address] [place], [place] [id number] * (ABNORMAL) HEMOGLOBIN AND HEMATOCRIT (09/08/2023 1:29 AM EDT) Only the most recent of5 resultswithin the time period is included. Pathologist [facility] Hgb 8.6(L) 11.2 - 15.7 g/dL 09/08/2023 1:51 AM EDT [facility] [employer] Hct 26.0(L) 34.0 - 45.0 % 09/08/2023 1:51 AM EDT [facility] Blood VENOUS BLOOD / Unknown Venipuncture / Unknown 09/08/2023 1:29 AM EDT 09/08/2023 1:44 AM EDT us Eduardo Hardy MD HEMATOLOGY ORDERABLES Final Result Performing Organization Address [facility] Co de Phone Number [facility] [employer] [address] [place] [address] , [address] [place] [phone] * ECG AND WAVEFORMS - TELEMETRY (09/07/2023 7:30 PM EDT) Only the most recent of2 resultswithin the time period is included. [facility] ECG INTERPRET NSR with PVCs [facility] 09/07/2023 7:30 PM EDT Narrative [facility] - 09/07/2023 10:38 PM EDT PC/HICUITY/ROUTINE ADMIT RI 0.14 QRS 0.10 QT 0.37 See Clinical Report link for waveform capture us Unknown Provider POINT OF CARE CARDIOLOGY Final Result Performing Organization Address City/[facility]/ZIP Co de Phone Number [facility] [address] [place] [phone] * (ABNORMAL) HEPATIC FUNCTION PANEL (09/07/2023 8:24 AM EDT) Total Protein 5.2(L) 6.4 - 8.3 gm/dL 09/07/2023 9:07 AM EDT [facility] Albumin 3.4 3.2 - 4.6 gm/dL 09/07/2023 9:07 AM EDT [facility] Bili Direct <0.2 0.0 - 0.3 mg/dL 09/07/2023 9:07 AM EDT [facility] Bili Total 0.3 0.2 - 1.3 mg/dL 09/07/2023 9:07 AM EDT [facility] AST 22 <=40 U/L 09/07/2023 9:07 AM EDT [facility] ALT 19 <=41 U/L 09/07/2023 9:07 AM EDT [facility] Alk Phos 59 36 - 123 U/L 09/07/2023 9:07 AM EDT [facility] Blood VENOUS BLOOD / Unknown Venipuncture / Unknown 09/07/2023 8:24 AM EDT 09/07/2023 8:34 AM EDT us Dago Vernon MD CHEMISTRY ORDERABLES Final Re sult [facility], [address] , [place] [address] * CT ACUTE GI BLEED PROTOCOL (09/06/2023 5:59 PM EDT) Anatomical Region Laterality Modality Abdomen, Pelvis Computed Tomogra phy 09/06/2023 5:59 PM EDT Impressions 09/06/2023 6:32 PM EDT 1. Hyperemia portions of the ascending colon. This could be the source of the patient's bleeding. Angiodysplasia would be a leading differential consideration. 2. Incidental findings as described Note: Radiology results need to be interpreted within a comprehensive clinical context. If you have questions about the radiology report, please contact the office of the ordering clinician. Narrative 09/06/2023 6:32 PM EDT CLINICAL HISTORY: -gi bleed. COMPARISON: Report from 2009. TECHNIQUE: CT ACUTE GI BLEED PROTOCOL on 09/06/2023 5:59 PM. 100 mL of intravenous Isovue-370 was administered. Dose 1 : CT DLP Total : 961.01 mGycm DLP Spiral Max : 398.78 mGycm Maximum CTDI Vol : 9.07 mGy SSDE : 6.4397 mGy SSDE Diameter : 44.8 cm SSDE Source : Lat FINDINGS: Abdomen: The lung bases are clear. The visualized portions of the heart are normal. There is a small hiatal hernia. Simple cysts in the liver and left kidney. The gallbladder has been removed. The spleen, pancreas, adrenal glands, and right kidney are normal. The stomach and caliber of the small bowel are normal and there is no evidence of active bleeding within these structures. The caliber of the aorta is normal. There are no enlarged abdominal lymph nodes or free fluid. Degenerative changes are in the spine. Pelvis: There is hyperemia of portions of the ascending colon. The caliber of the colon is normal. The appendix is unremarkable. The uterus has been removed. The urinary bladder and adnexa are normal. There are no enlarged pelvic lymph nodes or free fluid. Degenerative changes are in the bony pelvis. Procedure Note Quinton Arnold MD - 09/06/2023 CLINICAL HISTORY: -gi bleed. COMPARISON: Report from 2009. TECHNIQUE: CT ACUTE GI BLEED PROTOCOL on 09/06/2023 5:59 PM. 100 mL of intravenous Isovue-370 was administered. Dose 1 : CT DLP Total : 961.01 mGycm DLP Spiral Max : 398.78 mGycm Maximum CTDI Vol : 9.07 mGy SSDE : 6.4397 mGy SSDE Diameter : 44.8 cm SSDE Source : Lat FINDINGS: Abdomen: The lung bases are clear. The visualized portions of the heartare normal. There is a small hiatal hernia. Simple cysts in the liver and left kidney. The gallbladder has beenremoved. The spleen, pancreas, adrenal glands, and right kidney are normal. The stomachand caliber of the small bowel are normal and there is no evidence of active bleeding within these structures. The caliber of the aorta is normal.There are no enlarged abdominal lymph nodes or free fluid. Degenerative changes arein the spine. Pelvis: There is hyperemia of portions of the ascending colon. The caliberof the colon is normal. The appendix is unremarkable. The uterus has beenremoved. The urinary bladder and adnexa are normal. There are no enlarged pelviclymph nodes or free fluid. Degenerative changes are in the bony pelvis. IMPRESSION: 1. Hyperemia portions of the ascending colon. This could be the source ofthe patient's bleeding. Angiodysplasia would be a leading differential consideration. 2. Incidental findings as described Note: Radiology results need to be interpreted within a comprehensiveclinical context. If you have questions about the radiology report, please contactthe office of the ordering clinician. us Eduardo Hardy MD IMG CT ORDERABLES Final Res ult * TSH REFLEX (09/06/2023 4:53 PM EDT) Pathologist [facility] TSH Reflex 1.030 0.270 - 4.200 mcIU/mL 09/06/2023 5:48 PM EDT [facility] Blood VENOUS BLOOD / Unknown Venipuncture / Unknown 09/06/2023 4:53 PM EDT 09/06/2023 5:02 PM EDT Narrative [facility] - 09/06/2023 5:48 PM EDT Ingestion of kyleigh doses of biotin (>5 mg/day) taken within 8 hours of drawing blood sample can interfere with this immunoassay test. us Eduardo Hardy MD CHEMISTRY ORDERABLES Final Result [facility] [address] [place] [address] [facility] [address] [facility], [place] [address] * PARTIAL THROMBOPLASTIN TIME (09/06/2023 4:53 PM EDT) Only the most recent of2 resultswithin the time period is included. [facility] PTT 32.3 27.9 - 38.7 second(s) 09/06/2023 5:34 PM EDT [facility] Comment: Therapeutic range for unfractionated heparin: 50.1 - 98.7 seconds Therapeutic range for direct thrombin inhibitors: Argatroban is 1.5 to 3 times the aPTT baseline. Lepirudin is 1.5 to 2 times the aPTT baseline. The aPTT should not exceed 100 seconds. The dosage of Argatroban should be decreased in patients with hepatic impairment. The dosage of Lepirudin should be decreased in renal insufficiency. Blood VENOUS BLOOD / Unknown Venipuncture / Unknown 09/06/2023 4:53 PM EDT 09/06/2023 5:14 PM EDT Eduardo Hardy MD HEMATOLOGY ORDERABLES Final Result Performing Organization Address [facility] Co de Phone Number [facility] [address] [facility] , [place] [address] * PT / INR (09/06/2023 4:53 PM EDT) Only the most recent of2 resultswithin the time period is included. PT 12.2 10.5 - 13.6 second(s) 09/06/2023 5:34 PM EDT [facility] INR 1.04 0.89 - 1.16 (ratio) 09/06/2023 5:34 PM EDT [facility] Comment: Level of Therapy Indications Target INR Range Standard Dose Treatment and prophylaxis of venous 2.0 - 3.0 thrombosis, pulmonary embolism High Dose High risk patients with mechanical 2.5 - 3.5 heart valves Blood VENOUS BLOOD / Unknown Venipuncture / Unknown 09/06/2023 4:53 PM EDT 09/06/2023 5:14 PM EDT Eduardo Hardy MD HEMATOLOGY ORDERABLES Final Result Performing Organization Address City/[facility] Co de Phone Number [facility] [address] [facility] , [place] [address] * (ABNORMAL) CBC WITH DIFF (09/06/2023 4:53 PM EDT) Only the most recent of3 resultswithin the time period is included. WBC 12.3(H) 3.7 - 10.3 x10(3)/mcL 09/06/2023 5:05 PM EDT [facility] RBC 3.73(L) 3.90 - 5.20 x10(6)/mcL 09/06/2023 5:05 PM EDT [facility] Hgb 10.5(L) 11.2 - 15.7 g/dL 09/06/2023 5:05 PM EDT [facility] Hct 31.9(L) 34.0 - 45.0 % 09/06/2023 5:05 PM EDT [facility] MCV 85.5 80.0 - 100.0 fL 09/06/2023 5:05 PM EDT [facility] MCH 28.2 26.0 - 34.0 pg 09/06/2023 5:05 PM EDT [facility] MCHC 32.9 30.7 - 35.5 g/dL 09/06/2023 5:05 PM EDT [facility] RDW 13.8 <=14.9 % 09/06/2023 5:05 PM EDT [facility] Platelet 342 155 - 369 x10(3)/mcL 09/06/2023 5:05 PM EDT [facility] MPV 10.1 8.8 - 12.5 fL 09/06/2023 5:05 PM EDT [facility] Neut Percent 85.0 % 09/06/2023 5:05 PM EDT [facility] Comment:Neutrophils equals s egs plus bands Imm Gran% 0.2 % 09/06/2023 5:05 PM EDT [facility] Comment:Automated count of m etamyelocytes, myelocytes and promyelocytes. Lymph Percent 7.9 % 09/06/2023 5:05 PM EDT [facility] [place] Percent 6.0 % 09/06/2023 5:05 PM EDT [facility] Eos Percent 0.7 % 09/06/2023 5:05 PM EDT [facility] Baso Percent 0.2 % 09/06/2023 5:05 PM EDT [facility] Neut # 10.4(H) 1.6 - 6.1 x10(3)/[facility] 09/06/2023 5:05 PM EDT [facility] Comment:Neutrophils equals s egs plus bands IMMGRAN# 0.0 0.0 - 0.1 x10(3)/[facility] 09/06/2023 5:05 PM EDT [facility] Comment:Automated count of m etamyelocytes, myelocytes and promyelocytes. An absolute IG <0.1 is reported as 0.0. Lymph # 1.0(L) 1.2 - 3.9 x10(3)/[facility] 09/06/2023 5:05 PM EDT [facility] [place] # 0.7 0.3 - 0.9 x10(3)/[facility] 09/06/2023 5:05 PM EDT [facility] Eos# 0.1 0.0 - 0.5 x10(3)/[facility] 09/06/2023 5:05 PM EDT [facility] Baso # 0.0 0.0 - 0.1 x10(3)/[facility] 09/06/2023 5:05 PM EDT [facility] Blood VENOUS BLOOD / Unknown Venipuncture / Unknown 09/06/2023 4:53 PM EDT 09/06/2023 5:02 PM EDT us Eduardo Hardy MD HEMATOLOGY ORDERABLES Final Result [facility] [address] [place] [address] * (ABNORMAL) COMPREHENSIVE METABOLIC PANEL (09/06/2023 4:53 PM EDT) Only the most recent of4 resultswithin the time period is included. Sodium 142 136 - 145 mmol/L 09/06/2023 5:20 PM EDT [facility] Potassium 4.4 3.5 - 5.0 mmol/L 09/06/2023 5:20 PM EDT [facility] Chloride 109(H) 98 - 107 mmol/L 09/06/2023 5:20 PM EDT [facility] Total CO2 22 22 - 29 mmol/L 09/06/2023 5:20 PM EDT [facility] Anion Gap 11 7 - 16 mmol/L 09/06/2023 5:20 PM EDT [facility] Calcium 8.9 8.8 - 10.4 mg/dL 09/06/2023 5:20 PM EDT [facility] Glucose Lvl 108(H) 70 - 99 mg/dL 09/06/2023 5:20 PM EDT [facility] BUN 25(H) 8 - 23 mg/dL 09/06/2023 5:20 PM EDT [facility] Creatinine 0.69 0.51 - 1.30 mg/dL 09/06/2023 5:20 PM EDT [facility] Albumin 3.9 3.2 - 4.6 gm/dL 09/06/2023 5:20 PM EDT [facility] Total Protein 6.1(L) 6.4 - 8.3 gm/dL 09/06/2023 5:20 PM EDT [facility] Bili Total 0.3 0.2 - 1.3 mg/dL 09/06/2023 5:20 PM EDT [facility] ALT 19 <=41 U/L 09/06/2023 5:20 PM EDT [facility] AST 20 <=40 U/L 09/06/2023 5:20 PM T [facility] Alk Phos 70 36 - 123 U/L 09/06/2023 5:20 PM T [facility] eGFR (CKD-EPIcr 2020) 89 >=60 mL/min/1.7 3 m2 09/06/2023 5:20 PM T [facility] Comment:Estimated GFR was ca lculated using the CKD-EPIcr (2020) equation refit without race. The equation is recommended by the [employer] - [place] [employer] of Nephrology Task Force. Blood VENOUS BLOOD / Unknown Venipuncture / Unknown 09/06/2023 4:53 PM EDT 09/06/2023 5:02 PM EDT us Eduardo Hardy MD CHEMISTRY ORDERABLES Final Result [facility] [address] * US AAA SCREENING EXAM MEDICARE (07/17/2023 7:20 AM EST) Anatomical Region Laterality Modality Abdomen Ultrasound 07/17/2023 7:20 AM EST Impressions 07/17/2023 7:53 AM EST No sonographic evidence of abdominal aortic aneurysm. RECOMMENDATION: Normal caliber aorta at this time. If there are risk factors for the development of abdominal aortic aneurysm, consider follow-up sonography in 5 years. - Note: Radiology results need to be interpreted within a comprehensive clinical context. If you have questions about the radiology report, please contact the office of the ordering clinician. Narrative 07/17/2023 7:53 AM EST US AAA SCREENING EXAM MEDICARE, 07/17/2023 7:20 AM CLINICAL HISTORY: R19.33-Ruecu-naxltjbzt and pelvic swelling, mass and lump, unspecified gnna-SYK-66-CM Z82.49-Family history of ischemic heart disease and other diseases of the circulatory knudqr-GIS-79-CM Z85.850-Personal history of malignant neoplasm of uxalvvm-XWS-31-CM K21.5-Tqgmhl-sozseqpiiq reflux disease without mgzteyjtadc-URE-55-CM. COMPARISON: No comparison ultrasound imaging studies. PROCEDURE COMMENTS: Routine sonographic evaluation of the abdominal aorta with factory representative images sent to PACS along with boil off worker notes. FINDINGS: Real-time grayscale/Doppler imaging of the abdominal aorta performed. Diffuse atherosclerotic changes of the aortic lumen. The central lumen and both proximal common iliac arteries are widely patent. No focal/diffuse aneurysmal dilatation. Maximal AP/transverse dimension, 2.6 x 2.1 cm. Procedure Note Rudi Hinojosa DO - 07/17/2023 US AAA SCREENING EXAM MEDICARE, 07/17/2023 7:20 AM CLINICAL HISTORY: R19.24-Reshu-wtupoqvtm and pelvic swelling, mass andlump, unspecified yihd-JAY-45-CM Z82.49-Family history of ischemic heart disease and other diseases ofthe circulatory wtzuna-CPK-03-CM Z85.850-Personal history of malignant neoplasm of mnusccj-RRT-13-CM K21.7-Xgzkku-foasdjtcvt reflux disease without ptiqvnqepcm-OCV-93-CM. COMPARISON: No comparison ultrasound imaging studies. PROCEDURE COMMENTS: Routine sonographic evaluation of the abdominal aortawith factory representative images sent to PACS along with boil off worker notes. FINDINGS: Real-time grayscale/Doppler imaging of the abdominal aorta performed.Diffuse atherosclerotic changes of the aortic lumen. The central lumen and bothproximal common iliac arteries are widely patent. No focal/diffuse aneurysmaldilatation. Maximal AP/transverse dimension, 2.6 x 2.1 cm. IMPRESSION: No sonographic evidence of abdominal aortic aneurysm. RECOMMENDATION: Normal caliber aorta at this time. If there are riskfactors for the development of abdominal aortic aneurysm, consider follow-upsonography in 5 years. - Note: Radiology results need to be interpreted within a comprehensiveclinical context. If you have questions about the radiology report, please contactthe office of the ordering clinician. us Kyaw Shook MD [facility] US ORDERABLES Final Result * VA US CAROTID DUPLEX BILATERAL (02/20/2023 10:52 AM EDT) Anatomical Region Laterality Modality Vascular, Head, Neck Vascular Im aging 02/20/2023 10:2 8 AM EDT Impressions 02/20/2023 11:38 AM EDT Conclusions * There is a right proximal internal carotid artery mildly obstructive lesion noted, with an estimated 1-39% stenosis. * There is a left proximal internal carotid artery mildly obstructive lesion noted, with an estimated 1-39% stenosis. * Antegrade flow visualized in the bilateral vertebral artery. Narrative Procedure Note Afshin Cornejo MD - 02/20/2023 IMPRESSION Conclusions * There is a right proximal internal carotid artery mildly obstructive lesion noted, with an estimated 1-39% stenosis. * There is a left proximal internal carotid artery mildly obstructivelesion noted, with an estimated 1-39% stenosis. * Antegrade flow visualized in the bilateral vertebral artery. us Stephon Galan MD [facility] VASCULAR ORDERABLES Final Result * XR FOOT LEFT AP LATERAL AND OBLIQUE (02/02/2023 12:53 PM EDT) Anatomical Region Laterality Modality Foot Radiographic Sherry ging 02/02/2023 12:5 3 PM EDT Impressions 02/02/2023 1:13 PM EDT 1. Nonspecific soft tissue swelling about the dorsum of the forefoot. 2. Severe first MTP osteoarthritis. - Note: Radiology results need to be interpreted within a comprehensive clinical context. If you have questions about the radiology report, please contact the office of the ordering clinician. Narrative 02/02/2023 1:13 PM EDT XR FOOT LEFT AP LATERAL AND OBLIQUE, 02/02/2023 12:53 PM CLINICAL HISTORY: M79.672-Pain in left sulk-LBX-96-CM COMPARISON: None. PROCEDURE COMMENTS: XR FOOT LEFT AP LATERAL AND OBLIQUE FINDINGS: There is soft tissue swelling about the dorsum of the forefoot. No foreign body. There is no fracture or dislocation. There is severe first MTP osteoarthritis. Moderate plantar heel spur. Small foci of heterotopic bone formation within the plantar fascia which can be seen with chronic plantar fascial disease. Procedure Note Carlos Dubon MD - 02/02/2023 XR FOOT LEFT AP LATERAL AND OBLIQUE, 02/02/2023 12:53 PM CLINICAL HISTORY: M79.672-Pain in left nhqr-SIA-59-CM COMPARISON: None. PROCEDURE COMMENTS: XR FOOT LEFT AP LATERAL AND OBLIQUE FINDINGS: There is soft tissue swelling about the dorsum of the forefoot.No foreign body. There is no fracture or dislocation. There is severe first MTP osteoarthritis. Moderate plantar heel spur.Small foci of heterotopic bone formation within the plantar fascia which can be seenwith chronic plantar fascial disease. IMPRESSION: 1. Nonspecific soft tissue swelling about the dorsum of the forefoot. 2. Severe first MTP osteoarthritis. - Note: Radiology results need to be interpreted within a comprehensiveclinical context. If you have questions about the radiology report, please contactthe office of the ordering clinician. Emma Kennedy APRN IMG DIAGNOSTIC IMAGING ORDER JANET Final Result * POCT EKG (01/08/2023 1:38 PM EDT) 01/08/2023 1:38 PM EDT Impressions SEP OFFICE - 01/08/2023 1:38 PM EDT Sinus Rhythm WITHIN NORMAL LIMITS us Stephon Galan MD POINT OF CARE CARDIOLOGY Final Result Performing Organization Address City/[facility] Co de Phone Number SEP OFFICE * LIPID PANEL REFLEX (09/23/2021 9:30 AM EDT) Only the most recent of2 resultswithin the time period is included. [facility] Cholesterol 134 <200 mg/dL 09/23/2021 4:58 PM EDT [facility] Comment: < 200 Desirable 200 - 239 Borderline High >= 240 High Triglyceride 65 <150 mg/dL 09/23/2021 4:58 PM EDT [facility] Comment: < 150 Normal 150 - 199 Borderline High 200 - 499 High >= 500 Very High HDL 70 >=40 mg/dL 09/23/2021 4:58 PM EDT [facility] Comment: > 60 Optimal 40 - 60 Acceptable < 40 Low LDL Calculated 51 <100 mg/dL 09/23/2021 4:58 PM EDT [facility] Non-HDL-C Calculated 64 <=129 mg/dL 09/23/2021 4:58 PM EDT [facility] Comment: <130 Desirable 130-159 Above Desirable 160-189 Borderline High 190-219 High >= 220 Very High Fasting Specimen? Yes None 022 4:58 PM EDT [facility] Blood VENOUS BLOOD / Unknown Venipuncture / Unknown 09/23/2021 9:30 AM EDT 09/23/2021 9:30 AM EDT us Kyaw Shook MD CHEMISTRY ORDERABLES Final Resul t Performing Organization Address City/[facility]/ZIP Co de Phone Number [facility] [address] [facility] , [place] [address] [facility] [address] [place] [address] * THYROID STIMULATING HORMONE (09/23/2021 9:30 AM EDT) Only the most recent of6 resultswithin the time period is included. TSH 0.863 0.270 - 4.200 mcIU/mL 09/23/2021 4:58 PM EDT [facility] Blood VENOUS BLOOD / Unknown Venipuncture / Unknown 09/23/2021 9:30 AM EDT 09/23/2021 9:30 AM EDT Narrative [facility] - 09/23/2021 4:58 PM EDT Ingestion of kyleigh doses of biotin (>5 mg/day) taken within 8 hours of drawing blood sample can interfere with this immunoassay test. Kyaw Shook MD CHEMISTRY ORDERABLES Final Resul t [facility] [address] [facility], [address] [place] [id number] * (ABNORMAL) POCT URINALYSIS DIPSTICK (08/30/2019 12:04 PM EDT) Only the most recent of3 resultswithin the time period is included. Color, UA Yellow CLEAR,YELL OW,ORANGE, RUST SEP OFFICE Clarity, UA Clear CLEAR,CLOU DY SEP OFFICE Glucose, UA Negative G/DL% SEP OFFICE Bilirubin, UA Negative POS/NEG SEP OFFICE Ketones, UA Negative POS/NEG SEP cloth grader supervisor Grav, UA 1.000(A) 1.001 - 1.035 G/DL SEP OFFICE Blood, UA trace POS/NEG SEP OFFICE pH, UA 7.5 5.0 - 8 SEP OFFICE Protein, UA Negative POS/NEG SEP OFFICE Urobilinogen, UA 0.2 0.2 - 1.0 MG/DL SEP OFFICE Leukocytes, UA Negative POS/NEG SEP OFFICE Nitrite, UA Negative POS/NEG SEP OFFICE UA Appear POC SEP OFFICE Lot Number SEP OFFICE Expiration Date SEP OFFICE SeriAl # SEP OFFICE Urine 08/30/2019 12:0 4 PM EDT Kellee Lara HEAD REFRIGERATION ENGINEER POINT OF CARE TEST ORDER JANET Final Result SEP OFFICE * URINE CULTURE (NO STAIN) (08/30/2019 11:59 AM EDT) Only the most recent of2 resultswithin the time period is included. Culture No growth at 30 hours. 09/01/2019 4:44 PM EDT [facility] URINARY BLADDER STRUCTURE / Unknown 08/30/2019 11:59 AM EDT 08/30/2019 11:59 AM EDT us Kellee Lara HEAD REFRIGERATION ENGINEER MICROBIOLOGY - GENERAL O RDERABLES Final Result Performing Organization Address [facility] Co de Phone Number [facility] [address] [place] [address], [place] [address] * SCANNED RHYTHM STRIPS (07/23/2019 1:23 PM EST) Only the most recent of3 resultswithin the time period is included. Anatomical Region Laterality Modality Other 07/23/2019 1:23 PM EST us Unknown Unknown IMG ECG ORDERABLES Final Result * INTRAOP AIRWAY PLACEMENT (07/19/2019 8:14 AM EST) Narrative [facility] - 07/19/2019 8:14 AM EST Ines Lazar CRNA 07/19/2019 8:15 AM Intraop Airway Placement: Date/Time: 07/19/2019 7:39 AM Induction type: IV Mask size: Standard adult Pre-Oxygenation: Standard Mask ventilation: Easy mask ventilation Technique: Video laryngoscope Laryngoscope blade: Thurston Blade size: 3 Grade view: I Airway type: ETT- cuffed Topical Anesthetic/Lubricant: LTA 4% Lidocaine and Lidocaine 2% jelly Intubation assist devices: Stylet 14fr Airway location: Oral Device size: 7mm Secured at: 20 cm Secured by: Tape Measured from: Lips Placement verified: Auscultation, End tidal CO2 and Symmetric chest wall motion Condition: Atraumatic and Unchanged Insertion attempts: 1 Title: OVERNIGHT STOCKER us Mendel Brice MD RI ANESTHESIA Final Resul t Performing Organization Address [facility] Co de Phone Number [facility] [address] [place] [address] * (ABNORMAL) URINALYSIS (02/18/2019 9:36 AM EDT) UA Color Straw 02/18/2019 10:19 PM EDT [facility] UA Appear Clear Clear 02/18/2019 10:19 PM EDT [facility] UA Glucose Negative Negative mg/dL 02/18/2019 10:19 PM EDT [facility] UA Ketones Negative Negative mg/dL 02/18/2019 10:19 PM EDT [facility] UA Blood Small(A) Negative 02/18/2019 10:19 PM EDT [facility] UA pH 7.0 5.0 - 8.0 pH 02/18/2019 10:19 PM EDT [facility] UA Protein Negative Negative mg/dL 02/18/2019 10:19 PM EDT [facility] UA Urobilinogen Normal <=1 mg/dL 9 10:19 PM EDT [facility] UA Bili Negative Negative 02/18/2019 10:19 PM EDT [facility] UA Nitrite Negative Negative 02/18/2019 10:19 PM EDT [facility] UA Leuk Est Negative Negative 02/18/2019 10:19 PM EDT [facility] UA Spec Grav 1.006 1.001 - 1.035 no units 02/18/2019 10:19 PM EDT [facility] Comment: Reference range valid for random specimens only. UA WBC 0 0 - 4 /HPF 02/18/2019 10:19 PM EDT [facility] UA RBC <1 0 - 3 /HPF 02/18/2019 10:19 PM EDT [facility] UA Mucus Trace /LPF 02/18/2019 10:19 PM EDT [facility] UA Bacteria Trace(A) Negative /HPF 02/18/2019 10:19 PM EDT [facility] Urine 02/18/2019 9:36 AM EDT 02/18/2019 9:36 AM EDT us Hanna Iglesias MD URINE ORDERABLES Final Re sult [facility] [address] [place] [address] , [place] [address] * MM MAMMO DIGITAL SCREENING W CAD BILAT (03/04/2018 10:07 AM EDT) Only the most recent of2 resultswithin the time period is included. Anatomical Region Laterality Modality Breast Bilateral Mammography 03/04/2018 11:4 1 AM EDT Impressions 03/04/2018 11:41 AM EDT Benign finding (SMW-Uuwlbyed-3) ~ RECOMMENDATION: Routine screening mammogram in 1 year. ~ DISCLAIMER * Any patient with a palpable abnormality, unexplained by breast imaging, should be managed on clinical basis by the attending physician. * Breast imaging has a false negative rate of 15%. * The patient was notified by mail of the results of this examination. *The patient's information was entered into a reminder system with a target due date for the next mammogram. The mammogram was reviewed by a Radiologist and CAD. Narrative 03/04/2018 11:41 AM EDT Procedure:MM MAMMO DIGITAL SCREENING W CAD BILAT ~ Reason for exam: screening, asymptomatic. Z12.31-Encounter for screening mammogram for malignant neoplasm of yjtwfp-LFY-15-CM ~ MM MAMMO DIG SCREEN CAD BILAT Bilateral CC and MLO view(s) were taken. There are scattered fibroglandular densities. 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 There is no mammographic evidence of malignancy in either breast. ~ Procedure Note Mila aGrcia MD - 03/04/2018 Procedure:MM MAMMO DIGITAL SCREENING W CAD BILAT ~ Reason for exam: screening, asymptomatic. Z12.31-Encounter for screening mammogram for malignant neoplasm of qppoys-GSF-61-CM ~ MM MAMMO DIG SCREEN CAD BILAT Bilateral CC and MLO view(s) were taken. There are scattered fibroglandular densities. Prior study comparison: Compared with prior studies the most recentbeing 05/09/13, 07/06/09 There is a stable calcified involuted fibroadenoma in the right breastat 9:00. There is no mammographic evidence of malignancy in either breast. ~ IMPRESSION: Benign finding (BND-Vkmqgefa-5) ~ RECOMMENDATION: Routine screening mammogram in 1 year. ~ DISCLAIMER * Any patient with a palpable abnormality, unexplained by breast imaging, should be managed on clinical basis by the attending physician. * Breast imaging has a false negative rate of 15%. * The patient was notified by mail of the results of this examination. *The patient's information was entered into a reminder system with atarget due date for the next mammogram. The mammogram was reviewed by a Radiologist and CAD. us Kyaw Shook MD [facility] MAMMOGRAPHY ORDERABLES Final Result * DX BONE DENSITY AXIAL INCLUDING VERTEBRAL FRACTURE ASSESSMENT (03/04/2018 9:40 AM EDT) Anatomical Region Laterality Modality Dexa Scan 03/04/2018 Narrative 03/10/2018 8:15 AM EDT Indication: The patient is a female age 65 or older who requires a bone density assessment/monitoring. Vertebral Fracture Assessment was performed per protocol. Study was performed on [employer]. Bone Density: Region BMD T-score Z-score AP Spine (L1, L2, L3) 0.819 -1.8 0.3 Femoral Neck (Right) 0.698 -1.4 0.5 Total Hip (Right) 0.795 -1.2 0.4 World Health Organization criteria for BMD interpretation classify patients as: Normal (T-score at or above -1.0), Low Bone Density (T-score between -1.0 and -2.5), or Osteoporotic (T-score at or below -2.5). T Scores are reported in Postmenopausal women and in men age 50 and older. Z-scores are reported in females prior to menopause and in males younger than age 50. 10-year Fracture Risk(1): Major Osteoporotic Fracture 15% Hip Fracture 2.0% Reported Risk Factors: [place] (), Neck BMD=0.698, BMI=26.9, previous fracture (1) FRAX(R) Version 3.08. Fracture probability calculated for an untreated patient. Fracture probability may be lower if the patient has received treatment. Previous Exams: Region Date Age BMD T-score BMD Change Total Hip(Right) 03/04/2018 72 0.795 -1.2 -1.4% 05/09/2013 67 0.807 -1.1 *Denotes significance at 95% confidence level, LSC for Total Hip = 0.027 g/cm2 BMD is shown in g/cm2 and BMD Change indicates change vs previous BMD Vertebral Deformity Assessment: Exam date 03/04/2018 Vertebral Level Impression T7 Normal T8 Normal T9 Normal T10 Normal T11 Normal T12 Mild Wedge Deformity L1 Normal L2 Normal L3 Normal L4 Normal A spine fracture indicates 5X risk for subsequent spine fracture and 2X risk for subsequent hip fracture. Clinical Information Provided by Patient: Has used or is currently using the following medications: Vitamin D, Thyroid medication Has had or currently has the following medical conditions: Vitamin D Insufficiency Patient maximum height was 66 Menopause Age: 35 Interpretation: DXA: Bone mineral density is in the low bone density range. The spine portion of the study is a new baseline and is not able to be compared due to changes in the region of interest. The spine portion of the study is limited by hypertrophic changes. The right hip bone mineral density is not significantly changed since the last exam. A minimum of two years may be required between bone density studies due to inherent testing precision limitations. Intervals between BMD testing should be determined according to each patient's clinical status: typically one year after initiation or change of therapy is appropriate, with longer intervals once therapeutic effect is established. VFA: The vertebral fracture assessment is interpretable from T6 to L4. A single vertebral fracture has been identified. Further evaluation / images may be warranted depending on clinical situation. Note: VFA is designed to detect vertebral fractures and not other abnormalities. Reported by: Benita Noble PA-C, [facility] on 03/09/2018 1:10:00 PM. Kyaw Shook MD IMG DEXA ORDERABLES Final Result * (ABNORMAL) VITAMIN D 25 HYDROXY (04/11/2015 4:20 PM EDT) Only the most recent of3 resultswithin the time period is included. VIT D 25 OH 20.7(L) 30.0 - 120.0 ng/mL [facility] Comment: INTERPRETIVE INFORMATION: Vitamin D, 25-Hydroxy <20 ng/mL Deficiency 20 - 29 ng/mL Insufficiency 30 - 80 ng/mL Optimum Level >120 ng/mL Possible Toxicity NOTE: For infants and children up to 17 years of age, the optimum level is >=20 ng/mL. This assay accurately quantifies the sum of vitamin D3, 25-Hydroxy and vitamin D2, 25-Hydroxy. Blood specimen (specimen) 04/11/2015 4:20 PM EDT 04/11/2015 6:48 PM EDT Janina Montes MD CHEMISTRY ORDERABLES Fin al Result [facility] [address] [place] [address] * (ABNORMAL) T4, FREE (THYROXINE) (04/11/2015 4:20 PM EDT) Only the most recent of4 resultswithin the time period is included. Free T4 1.93(H) 0.93 - 1.70 ng/dL [facility] Blood specimen (specimen) 04/11/2015 4:20 PM EDT 04/11/2015 6:54 PM EDT Janina Montes MD CHEMISTRY ORDERABLES Fin al Result [facility] [address] [place] [address] * US THYROID SURVEILLANCE (09/26/2014 11:11 AM EDT) Anatomical Region Laterality Modality Head, Neck Ultrasound 09/26/2014 10:1 0 AM EDT Impressions 09/27/2014 7:52 AM EDT IMPRESSION: Unremarkable thyroid surveillance study. Narrative 09/27/2014 7:52 AM EDT Ultrasound thyroid surveillance study date 09/26/2014 time 10:27 a.m. History 6 month followup post thyroidectomy. FINDINGS: The patient was scanned by the sonologist and myself. The thyroid bed is unremarkable with no residual tissue or mass in the region. There is no lymphadenopathy identified. A few small scattered subcentimeter lymph nodes which are not suspicious. Procedure Note Diane Gomez III, MD - 09/27/2014 Ultrasound thyroid surveillance study date 09/26/2014 time 10:27 a.m. History 6 month followup post thyroidectomy. FINDINGS: The patient was scanned by the sonologist and myself. Thethyroid bed is unremarkable with no residual tissue or mass in the region. There is no lymphadenopathy identified. A few small scatteredsubcentimeter lymph nodes which are not suspicious. IMPRESSION: Unremarkable thyroid surveillance study. us Janina Montes MD IMG US ORDERABLES Final Result * (ABNORMAL) THYROGLOBULIN AND TG AB REFLEX MONITOR-ARUP (09/26/2014 10:00 AM EDT) Thyroglobulin-ARUP 0.2(L) 1.3 - 31.8 ng/mL [facility] Comment: INTERPRETIVE INFORMATION: Thyroglobulin, Serum or Plasma Specimens negative for thyroglobulin antibodies (TgAb) are tested for thyroglobulin (Tg) by chemiluminescent immunoassay (DOROTEO) using the Steve Alok Access DxI method. Specimens with TgAb results above the upper reference limit are tested for Tg by high-performance liquid chromatography-tandem mass spectrometry (LC-MS/MS). Results obtained with different test methods or kits cannot be used interchangeably. Tg results, regardless of concentration, should not be interpreted as absolute evidence for the presence or absence of papillary or follicular thyroid cancer. Tg testing is not recommended for use as a screening procedure to detect the presence of thyroid cancer in the general population. Thyroglob Ab <0.9 0.0 - 4.0 IU/mL [facility] Comment: INTERPRETIVE INFORMATION: Thyroglobulin Antibody A value of 4.0 IU/mL or less indicates a negative result for thyroglobulin antibodies. The Thyroglobulin Antibody assay is being performed using the [place] Access DxI method. THYROGLOBULIN LC-MS/MS-[facility] Not Applicable 1.3 - 31.8 ng/mL [facility] Comment: INTERPRETIVE INFORMATION: Thyroglobulin by LC-MS/MS, Serum/Plasma Lower limit of detection for Thyroglobulin by LC-MS/MS is 0.5 ng/mL. Test developed and characteristics determined by [employer]. See Compliance Statement B: [email or web address] Blood specimen (specimen) 09/26/2014 10:00 AM EDT 09/26/2014 3:20 PM EDT Janina Montes MD CHEMISTRY ORDERABLES Fin al Result [facility] [address] [place] [address] * CALCIUM LEVEL TOTAL (09/26/2014 10:00 AM EDT) Only the most recent of4 resultswithin the time period is included. Calcium 9.4 8.8 - 10.2 mg/dL [facility] Blood specimen (specimen) 09/26/2014 10:00 AM EDT 09/26/2014 10:00 AM EDT Narrative [facility] - 09/26/2014 10:44 AM EDT Call [phone] if level less then 7.5 Carlos Sanders MD CHEMISTRY ORDERABLES Final Resul t Performing Organization Address [facility] Co de Phone Number [facility] [address] [place] [address] * THYROGLOBULIN (01/04/2014 11:35 AM EDT) Pathologist [facility] Thyroglobulin 0.4 0.0 - 55.0 ng/mL [facility] Comment: Thyroglobulin Autoantibodies may interfere with assays for Thyroglobulin and may cause underestimation of the Thyroglobulin level. If Thyroglobulin is ordered alone, please interpret with caution. Performed at: [facility] [address], [place] [address] Blood specimen (specimen) 01/04/2014 11:35 AM EDT 01/04/2014 2:16 PM EDT Janina Montes MD CHEMISTRY ORDERABLES Fin al Result Performing Organization Address [facility] de Phone Number [facility] [address] [place] [address] * THYROGLOBULIN ANTIBODY (01/04/2014 11:35 AM EDT) [facility] Thyroglob Ab <20.0 <40.0 [facility] Comment: Performed at: [facility] [address], [address] [address] Blood specimen (specimen) 01/04/2014 11:35 AM EDT 01/04/2014 2:16 PM EDT Janina Montes MD IMMUNOLOGY ORDERABLES Fi nal Result Performing Organization Address [facility] Co de Phone Number [facility] [address] [place] [address] * (ABNORMAL) RENAL FUNCTION PANEL (01/04/2014 11:35 AM EDT) Pathologist [facility] Sodium 141 136 - 145 mmol/L [facility] Potassium 4.2 3.5 - 5.0 mmol/L [facility] Chloride 106 98 - 107 mmol/L [facility] Total CO2 28 22 - 29 mmol/L [facility] Anion Gap 7 7 - 16 mmol/L [facility] Calcium 9.3 8.8 - 10.2 mg/dL [facility] Glucose Lvl 74(L) 82 - 100 mg/dL [facility] BUN 16 8 - 23 mg/dL [facility] Creatinine 0.63 0.51 - 1.00 mg/dL [facility] Albumin 4.5 3.2 - 4.6 gm/dL [facility] Phosphorus 3.1 2.5 - 4.5 mg/dL [facility] GFR Afr Am >60 [facility] Comment: GFR is estimated using creatinine, age, gender, and race. GFR has been validated for patients between 18 and 70 years of age. GFR has not been validated for women, patients with serious comorbid conditions, or persons with extremes of body size, muscle mass, or nutritional status. For additional information: www.kidney.org. Chronic kidney disease stage GFR (ml/min/1.73 square meters) Stage 3 30 - 59 Stage 4 15 - 29 Stage 5 14 or less GFR Non Afr Am >60 [facility] Blood specimen (specimen) UPPER LIMB STRUCTURE / Unknown 01/04/2014 11:35 AM EDT 01/04/2014 11:35 AM EDT us Janina Montes MD CHEMISTRY ORDERABLES Regulo desean Result - Final [facility] [address] [place] [address] * SCANNED PRE/POST PROCEDURES (11/21/2013 3:13 PM EDT) Narrative Procedure Note Unknown, Unknown - 11/21/2013 3:13 PM EDT us Unknown Unknown PROCEDURE/MINOR SURGICAL ORDERAB LES Final Result * SCANNED ANESTHESIA FORMS (11/21/2013 3:13 PM EDT) Narrative Procedure Note Unknown, Unknown - 11/21/2013 3:13 PM EDT us Unknown Unknown PROCEDURE/MINOR SURGICAL ORDERAB LES Final Result * PARATHYROID HORMONE INTACT (11/17/2013 1:21 PM EDT) PTH Intact 28.52 pg/mL [facility] Comment: Intact PTH Calcium Interpretation ------- 15 - 65 8.6 - 10.2 Normal > 65 > 10.2 Primary Hyperparathyroidism < 20 > 10.2 Non-Parathyroid hypercalcemia < 15 < 8.6 Hypoparathyroidism Consider the above as guidelines only. PTH results should be interpreted in conjunction with the total or ionized calcium level. The finding of a persistently high-normal calcium accompanied by a high-normal PTH (or a low-normal calcium accompanied by a low-normal PTH) warrants further investigation. Although the PTH may itself be within normal limits, it may be inappropriately high (or low) relative to the circulating calcium level. Blood specimen (specimen) UPPER LIMB STRUCTURE / Unknown 11/17/2013 1:21 PM EDT 11/17/2013 1:25 PM EDT Narrative [facility] - 11/17/2013 4:03 PM EDT Blood drawn at 11 am; please run stat us Carlos Sanders MD CHEMISTRY ORDERABLES Final Resul t [facility] [address] [place] [address] * PATHOLOGY TISSUE REPORT (11/17/2013 9:47 AM EDT) Only the most recent of3 resultswithin the time period is included. 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 - 0.5 cm, follicular variant. - Less than 0.1 cm, follicular variant. Additional pathologic findings: - Negative margins of surgical resection. 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 Surgical Pathology Cancer Case Summary Note: This summary is updated from the previous summary on the right lobectomy specimen ([id number]) and incorporates tumor information from both thyroid lobes. Procedure: thyroid lobectomy, right and left Specimen Integrity: Intact. Specimen Size: Right lobe: 6 x 2 x 1.5 cm with attached 7 x 4 x 3 cm mass Left lobe: 5 x 4 x 2 cm Isthmus pyramidal lobe: Included as portions from the lobectomy specimens. Central compartment: N/A Right neck dissection: N/A Left neck dissection: N/A Tumor Focality: Multifocal. DOMINANT TUMOR: Tumor Laterality: Right Tumor Size: Greatest dimension: 1.7 cm Histologic Type: Papillary carcinoma Variant, specify: Follicular variant Architecture: Follicular Cytomorphology: Classical Margins: Uninvolved by tumor Tumor Capsule: Partially encapsulated Tumor Capsular Invasion: Not identified. Lymph-Vascular Invasion: Not identified. Extrathyroidal Extension: Not identified. SECOND TUMOR: Tumor Laterality: Left Tumor Size: Greatest Dimension: 0.7 cm Histologic Type: Papillary carcinoma Variant, specify: Oncocytic or oxyphilic Architecture: Papillary Cytomorphology: Oncocytic or oxyphilic Margins: Uninvolved by carcinoma. Tumor Capsule: Partially encapsulated Tumor Capsular Invasion: Not identified. Lymph-Vascular Invasion: Not identified. Extrathyroidal Extension: Not identified. Pathologic Staging (pTNM) Primary Tumor: pT1b(m), tumor more than 1 cm but not more than 2 cm in greatest dimension limited to the thyroid. Regional Lymph Nodes: pNX. Regional lymph nodes cannot be assessed and not submitted for pathologic study. Distant Metastasis: N/A Tom Mitchell (Electronically signed by) Verified: 11/18/2013 [facility] Clinical Information Malignant neoplasm of thyroid Frozen Section Diagnosis Follicular lesion, favor benign, defer to permanent sections./MR Gross Description Received fresh for frozen section labeled with the patient's name and left thyroid lobe is a 5 x 4 x 2 cm thyroid lobectomy specimen. The specimen is serially sectioned revealing pale perez-red parenchyma with multiple cystic and solid perez-pink and hemorrhagic nodules throughout the entire lobe, 5 mm to 1.5 cm, limited to thyroid. One of these nodules shows partial calcification. The vast majority of these nodules are thinly encapsulated. Assisted Living Manager section is submitted for frozen, resubmitted labeled [id number]. Assisted Living Manager sections are submitted from one end to other in eight cassettes (A: nodule following decalcification). /[place] MR /CN Microscopic Description Microscopic examination is performed and the findings corroborate the diagnosis. [facility] 11/17/2013 9:47 AM EDT us Carlos Sanders MD PATHOLOGY ORDERABLES Final Resul t [facility] [address] [place] [address] * PTH INTRAOPERATIVE (11/17/2013 7:39 AM EDT) Intraop PTH 47.85 pg/mL [facility] Comment: Intact PTH Calcium Interpretation ------- 15 - 65 8.6 - 10.2 Normal > 65 > 10.2 Primary Hyperparathyroidism < 20 > 10.2 Non-Parathyroid hypercalcemia < 15 < 8.6 Hypoparathyroidism Consider the above as guidelines only. PTH results should be interpreted in conjunction with the total or ionized calcium level. The finding of a persistently high-normal calcium accompanied by a high-normal PTH (or a low-normal calcium accompanied by a low-normal PTH) warrants further investigation. Although the PTH may itself be within normal limits, it may be inappropriately high (or low) relative to the circulating calcium level. Blood specimen (specimen) UPPER LIMB STRUCTURE / Unknown 11/17/2013 7:39 AM EDT 11/17/2013 7:44 AM EDT us Carlos Sanders MD CHEMISTRY ORDERABLES Final Resul t [facility] [address] [place] [address] * SCANNED PRE/POST PROCEDURES (10/22/2013 9:42 AM EDT) Narrative Procedure Note Unknown, Unknown - 10/22/2013 9:42 AM EDT us Unknown Unknown PROCEDURE/MINOR SURGICAL ORDERAB LES Final Result * SCANNED ANESTHESIA FORMS (10/22/2013 9:42 AM EDT) Narrative Procedure Note Unknown, Unknown - 10/22/2013 9:42 AM EDT us Unknown Unknown PROCEDURE/MINOR SURGICAL ORDERAB LES Final Result * XR CHEST PA AND LATERAL (10/14/2013 1:16 PM EDT) Anatomical Region Laterality Modality Chest Radiographic Sherry ging 10/14/2013 12:5 0 PM EDT Impressions 10/14/2013 1:22 PM EDT IMPRESSION: No acute disease. Narrative 10/14/2013 1:22 PM EDT TWO-VIEW CHEST, 10/14/2013 at 1308 HISTORY: Preop head and neck surgery. FINDINGS: Comparison 07/27/2008. Heart size is stable and normal. The lungs are clear. Procedure Note Isaías Horowitz MD - 10/14/2013 TWO-VIEW CHEST, 10/14/2013 at 1308 HISTORY: Preop head and neck surgery. FINDINGS: Comparison 07/27/2008. Heart size is stable and normal. The lungs are clear. IMPRESSION: No acute disease. Carlos Sanders MD IMG DIAGNOSTIC IMAGING ORDERABLE S Final Result * DIFFERENTIAL (10/14/2013 1:00 PM EDT) Only the most recent of2 resultswithin the time period is included. Neut Percent 64.8 % [facility] Lymph Percent 23.6 % [facility] [place] Percent 8.6 % [facility] Eos Percent 2.5 % SE LAB Baso Percent 0.5 % [facility] Neut# 4.1 1.8 - 7.7 x10(3)/[facility] SE LAB Lymph# 1.5 0.6 - 4.8 x10(3)/[facility] [place]# 0.6 0.0 - 1.3 x10(3)/[facility] SE LAB Eos# 0.2 0.0 - 0.5 x10(3)/[facility] Baso# 0.0 0.0 - 0.2 x10(3)/[facility] Blood specimen (specimen) 10/14/2013 1:00 PM EDT 10/14/2013 1:18 PM EDT us Carlos Sanders MD HEMATOLOGY ORDERABLES Final Resu lt Performing Organization Address City/State/[facility] Co de Phone Number [facility] [address] [place] [address] * NON-MOHS SURGEON/GENERAL DERMATOLOGIST CYTOLOGY REPORT (09/23/2013 1:01 PM EDT) Non-Credit And Collection Manager Cytology Report PATIENT NAME:NOEMI HUFFMAN Non-Credit And Collection Manager Cytology Report Accession Number Collected Date/Time Received Date/Time [id number] 09/23/13 13:01 EDT 09/23/13 15:08 EDT Specimen Source 1) Fine Needle Aspiration, Right Thyroid Lobe 2) Fine Needle Aspiration, Left Thyroid Lobe Diagnosis Atypical Cells Present. Comment 1. Right thyroid lobe, fine needle aspiration: Specimen Adequacy: Stasifactory Cellular specimen with abundant bland follicular epithelial cells with oncocytic cytoplasm and a mixed macrofollicular and microfollicular arrangement pattern. Rare nuclear grooves are ntoed. No definite nuclear inclusions are noted. Scant colloid is present. The cytologic findings of right thyroid FNA are suspicious for a follicular neoplasm. Hurthle cell neoplasm cannot be ruled out. Clinical and radiographic correlation are recommended. 2. Left thyroid lobe, fine needle aspiration: Specimens Adequacy: Satisfactory Cellular specimens composed of uniform, cytologically bland-appearing follicular epithelial cells with a predominantly macrofollicular arrangement. Numerous histiocytes are noted in the Left Lobe specimen. Colloid is present. Comment: The cytologic findings of left thyroid FNA are consistent with a benign thyroid nodule. Clinical and radiographic correlation is recommended. This case was reviewed by additional departmental pathologist(s) with diagnostic agreement./HAILEY Editorial Intern: REANNA OSBORNE 09/26/2013 Completed by: Anu Vaz (Electronically signed by) 09/26/2013 [facility] Gross Description 1. Fine Needle Aspiration, Thyroid Right Lobe 4 direct smears made 2. Fine Needle Aspiration, Thyroid Left Lobe 4 direct smears made [facility] 09/23/2013 1:01 PM EDT us Carlos Sanders MD CYTOLOGY ORDERABLES Final Result [facility] [address] [place] [address] * US GUIDED THYROID BIOPSY (09/23/2013 12:59 PM EDT) Anatomical Region Laterality Modality Neck Ultrasound 09/23/2013 11:1 5 AM EDT Impressions 09/23/2013 2:14 PM EDT IMPRESSION: Ultrasound guided biopsy performed of both the dominant nodule right lobe and a smaller area of nodularity in the left lobe. Procedure completed without difficulty or complication. Pathology results are pending. Narrative 09/23/2013 2:14 PM EDT US GUIDED THYROID BIOPSY 09/23/2013 at 12:17 p.m. Clinical: 67-year-old female. Goiter. Enlarged thyroid nodules. PROCEDURE: Outside examination dated August 29, 2013 reviewed. Thyroid re-examined with handheld ultrasound. This examination demonstrates a dominant right lobe nodule measuring 3 cm. A smaller 1 cm area of nodularity present in the left lobe. Procedure discussed with patient and consent obtained. Biopsy performed of the right lobe nodule utilizing both aspiration and core biopsy needles. Aspiration biopsy performed of the smaller left lobe nodule. Material obtained was reviewed by the on-site sheet rock applicator and determined to be sufficient for diagnosis. Pathology results are pending. Procedure Note Quinton Lebron MD - 09/23/2013 US GUIDED THYROID BIOPSY 09/23/2013 at 12:17 p.m. Clinical: 67-year-old female. Goiter. Enlarged thyroid nodules. PROCEDURE: Outside examination dated August 29, 2013 reviewed. Thyroid re-examinedwith handheld ultrasound. This examination demonstrates a dominant right lobe nodulemeasuring 3 cm. A smaller 1 cm area of nodularity present in the left lobe. Procedure discussed with patient and consent obtained. Biopsy performed ofthe right lobe nodule utilizing both aspiration and core biopsy needles. Aspirationbiopsy performed of the smaller left lobe nodule. Material obtained was reviewed by the on-sitecytotechnologist and determined to be sufficient for diagnosis. Pathology results arepending. IMPRESSION: Ultrasound guided biopsy performed of both the dominant noduleright lobe and a smaller area of nodularity in the left lobe. Procedure completed withoutdifficulty or complication. Pathology results are pending. us Carlos Sanders MD IMG US ORDERABLES Final Result * US THYROID (08/29/2013 10:20 AM EDT) Anatomical Region Laterality Modality Neck Ultrasound Impressions 08/30/2013 3:19 PM EDT : Multinodular goiter. Large nodule essentially replaces the right lobe. Given the large size, biopsy is recommended. Matt Miller MD. Narrative 08/30/2013 3:19 PM EDT EXAMINATION: Thyroid Ultrasound 08/29/2013. HISTORY: 67 year-old female with thyromegaly. COMPARISON: None. FINDINGS: The thyroid gland is enlarged. The right lobe measures 6.0 cm in length x 2.3 x 1.5 cm in cross-section. The left lobe measures 6.7 cm in length x 2.3 x 1.4 cm in cross-section. The isthmus measures 0.8 cm in thickness. Moderate diffuse heterogeneity of both lobes. Large nodule almost replacing the right lobe. Measures about 4 cm in largest dimension. Small complex cyst with calcification of the left lobe upper pole, measures 0.7 cm in largest dimension. Iso to slightly hyperechoic solid nodule of the left lobe mid-level anteriorly. Measures 1.7 x 1.3 x 1.3 cm. Hypoechoic solid nodule of the left lobe lower pole. Measures 1.3 x 1.3 x 1.0 cm. Procedure Note Quinton Miller MD - 08/30/2013 EXAMINATION: Thyroid Ultrasound 08/29/2013. HISTORY: 67 year-old female with thyromegaly. COMPARISON: None. FINDINGS: The thyroid gland is enlarged. The right lobe measures 6.0 cmin length x 2.3 x 1.5 cm in cross-section. The left lobe measures 6.7 cmin length x 2.3 x 1.4 cm in cross-section. The isthmus measures 0.8 cm inthickness. Moderate diffuse heterogeneity of both lobes. Large nodulealmost replacing the right lobe. Measures about 4 cm in largestdimension. Small complex cyst with calcification of the left lobe upperpole, measures 0.7 cm in largest dimension. Iso to slightly hyperechoicsolid nodule of the left lobe mid-level anteriorly. Measures 1.7 x 1.3 x1.3 cm. Hypoechoic solid nodule of the left lobe lower pole. Measures1.3 x 1.3 x 1.0 cm. IMPRESSION: Multinodular goiter. Large nodule essentially replaces theright lobe. Given the large size, biopsy is recommended. Matt Miller MD. us Kyaw Shook MD [facility] US ORDERABLES Final Result * DX BONE DENSITY AXIAL SKELETON (05/09/2013 2:57 PM EST) Anatomical Region Laterality Modality Dexa Scan 05/09/2013 Narrative 05/10/2013 10:28 AM EST Indication: The patient is a post-menopausal female over age 65 with clinical risk factors for an osteoporotic fracture that requires a bone density assessment. Bone Density: Region BMD T-score Z-score AP Spine (L1, L2, L3) 0.884 -1.2 0.6 Femoral Neck (Left) 0.714 -1.2 0.4 Total Hip (Left) 0.799 -1.2 0.1 Femoral Neck (Right) 0.729 -1.1 0.5 Total Hip (Right) 0.807 -1.1 0.2 World Health Organization criteria for BMD interpretation classify patients as: Normal (T-score at or above -1.0), Osteopenic (T-score between -1.0 and -2.5), or Osteoporotic (T-score at or below -2.5). T Scores are reported in Postmenopausal women and in men age 50 and older. Z-scores are reported in females prior to menopause and in males younger than age 50. 10-year Fracture Risk(1): Major Osteoporotic Fracture 8.6% Hip Fracture 0.8% Reported Risk Factors: [place] (), Neck BMD=0.714, BMI=26.9 (1) FRAX Version 3.01. Fracture probability calculated for an untreated patient. Fracture probability may be lower if the patient has received treatment. Medical History: Patient maximum height was 64.0 postmenopausal Interpretation: Bone mineral density is in the low bone density range. The spine portion of the study is limited by visual hypertrophic change with associated vertebra deleted. Reported by: Faith Rose PA-C, DARIO on 05/10/2013 9:11:00 AM. Procedure Note Susan Bernard MD - 05/10/2013 Indication: The patient is a post-menopausal female over age 65 withclinical risk factors for an osteoporotic fracture that requires a bone density assessment. Bone Density: Region BMD T-score Z-score AP Spine (L1, L2, L3) 0.884 -1.2 0.6 Femoral Neck (Left) 0.714 -1.2 0.4 Total Hip (Left) 0.799 -1.2 0.1 Femoral Neck (Right) 0.729 -1.1 0.5 Total Hip (Right) 0.807 -1.1 0.2 World Health Organization criteria for BMD interpretation classify patients as: Normal (T-score at or above -1.0), Osteopenic (T-score between -1.0 and -2.5), or Osteoporotic (T-score at or below -2.5). T Scores are reported in Postmenopausal women and in men age 50 and older. Z-scores are reported in females prior to menopause and in males youngerthan age 50. 10-year Fracture Risk(1): Major Osteoporotic Fracture 8.6% Hip Fracture 0.8% Reported Risk Factors: [place] (), Neck BMD=0.714, BMI=26.9 (1) FRAX Version 3.01. Fracture probability calculated for an untreated patient. Fracture probability may be lower if the patient has received treatment. Medical History: Patient maximum height was 64.0 postmenopausal Interpretation: Bone mineral density is in the low bone density range. The spine portion of the study is limited by visual hypertrophic changewith associated vertebra deleted. Reported by: Faith Rose PA-C, CCD on 05/10/2013 9:11:00 AM. [facility] DEXA ORDERABLES Final Result * SCANNED PRE/POST PROCEDURES (06/08/2010 12:00 AM EST) Narrative 06/08/2010 5:56 PM EST Ordered by an unspecified provider. Transcriptions Unknown, Unknown - 06/08/2010 5:56 PM EST us Unknown Unknown PROCEDURE/MINOR SURGICAL ORDERAB LES Final Result * SCANNED ANESTHESIA FORMS (06/08/2010 12:00 AM EST) Narrative 06/08/2010 5:56 PM EST Ordered by an unspecified provider. Transcriptions Unknown, Unknown - 06/08/2010 5:56 PM EST us Unknown Unknown PROCEDURE/MINOR SURGICAL ORDERAB LES Final Result * SCANNED OR REPORT (06/06/2010 12:00 AM EST) Narrative 06/06/2010 7:24 PM EST Ordered by an unspecified provider. Transcriptions Unknown, Unknown - 06/06/2010 7:23 PM EST us Unknown Unknown PROCEDURE/MINOR SURGICAL ORDERAB LES Final Result * ALKALINE PHOSPHATASE (05/28/2010 9:58 AM EST) Alk Phos 72 41 - 119 IU/L [facility] Blood specimen (specimen) UPPER LIMB STRUCTURE / Unknown 05/28/2010 9:58 AM EST 05/28/2010 10:30 AM EST us Darci Camara MD CHEMISTRY ORDERABLES Final Result Performing Organization Address City/[facility]/ZIP Co de Phone Number [facility] [address] [place] [address] * BILIRUBIN TOTAL (05/28/2010 9:58 AM EST) Bili Total 0.3 0.1 - 1.3 mg/dL [facility] Blood specimen (specimen) UPPER LIMB STRUCTURE / Unknown 05/28/2010 9:58 AM EST 05/28/2010 10:30 AM EST us Darci Camara MD CHEMISTRY ORDERABLES Final Result [facility] [address] [place] [address] * EK EKG 12 LEAD (05/28/2010 9:51 AM EST) PYRAMIS LINK PYRAMIS Anatomical Region Laterality Modality Electrocardiogra phy 05/28/2010 10:2 3 AM EST us Darci Camara MD IMG ECG ORDERABLES Final Re sult * US ABDOMEN LIMITED (07/26/2009 12:00 AM EST) Anatomical Region Laterality Modality Other 07/26/2009 07/26/2009 Narrative 07/26/2009 12:00 AM EST Name: ROSA HIGGINS : 1945 VERIFIED [facility] Reason: PAIN Dict.Staff: DIANE GOMEZ III [id number] Verified By: RUDI HINOJOSA Quan: 07/27/09 7:47 am Exams: US-ABDOMEN LIMITED RIGHT UPPER QUADRANT ULTRASOUND, 07/26/2009: HISTORY: Heartburn, epigastric pain. FINDINGS: There are several millimeter-sized echogenic foci in the gallbladder wall, which are nonmobile and do not demonstrate shadowing. These most likely represent gallbladder polyps. The gallbladder wall is mildly prominent at 2mm. There are no obvious gallstones. The liver is unremarkable. There are no focal liver lesions. There is no biliary ductal dilatation. Distal body and tail of the pancreas are obscured by bowel gas. The proximal pancreas is normal in appearance. IMPRESSION: No obvious gallstones. Small, nonmobile, nonshadowing, millimeter-sized foci protruding off the gallbladder wall most likely representing gallbladder polyps. DIANE GOMEZ III, MD:yg DICTATED 07/26/2009 @ 09:41 end of result Procedure Note Unknown, U - 10/05/2009 Name: ROSA HIGGINS : 1945 VERIFIED [facility] Reason: PAIN Dict.Staff: DIANE GOMEZ III [id number] Verified By: RUDI HINOJOSA Quan: 07/27/09 7:47 am Exams: US-ABDOMEN LIMITED RIGHT UPPER QUADRANT ULTRASOUND, 07/26/2009: HISTORY: Heartburn, epigastric pain. FINDINGS: There are several millimeter-sized echogenic foci in the gallbladder wall, which are nonmobile and do not demonstrate shadowing. These most likely represent gallbladder polyps. The gallbladder wall is mildly prominent at 2mm. There are no obvious gallstones. The liver is unremarkable. There are no focal liver lesions. There is no biliary ductal dilatation. Distal body and tail of the pancreas are obscured by bowel gas. The proximal pancreas is normal in appearance. IMPRESSION: No obvious gallstones. Small, nonmobile, nonshadowing, millimeter-sized foci protruding off the gallbladder wall most likely representing gallbladder polyps. DIANE GOMEZ III, MD:yg DICTATED 07/26/2009 @ 09:41 end of result us U Unknown IMG SE LW RAD HISTORICAL Final Result * CT ABD/PELVIS CIGAR MAKING MACHINE OPERATOR (07/14/2009 2:58 PM EST) Anatomical Region Laterality Modality Other 07/14/2009 2:58 PM EST Narrative 07/14/2009 5:48 PM EST -PT IN TV RM CT abdomen and pelvis 07/14/2009 History- Frequent UTIs, previous hysterectomy. 75 ml Optiray-320. Comparison- None. Oral contrast also given. CT abdomen Minimal atelectasis at right lung base. Small amount of increased density noted inferiorly in gallbladder which may be due to cholelithiasis. This can be evaluated further with a gallbladder ultrasound study if clinically warranted. Small 5 mm rounded area of decreased attenuation noted in right lobe of liver which is nonspecific but may represent a cyst. This area measures approximately 7 mm in diameter. Small hiatal hernia. Kidneys and other solid viscera otherwise normal. CT pelvis Mild to moderate colonic diverticulosis. No evidence of diverticulitis. No bowel dilatation. No evidence of appendicitis. Normal appendix is thought to be seen. No lymphadenopathy. No osseous destruction. Opinion- No acute findings. Possible cholelithiasis. Followup right upper quadrant ultrasound study suggested if clinically warranted. Tiny area of decreased attenuation in the liver which is nonspecific but may represent a cyst. General Cleaner- [id number] Reading Physician- DUKE STILES MD Released Date Time- 07/15/09 0324 Procedure Note [facility] - 08/31/2009 -PT IN TV RM CT abdomen and pelvis 07/14/2009 History- Frequent UTIs, previous hysterectomy. 75 ml Optiray-320. Comparison- None. Oral contrast also given. CT abdomen Minimal atelectasis at right lung base. Small amount of increased density noted inferiorly in gallbladder which may be due to cholelithiasis. This can be evaluated further with a gallbladder ultrasound study if clinically warranted. Small 5 mm rounded area of decreased attenuation noted in right lobe of liver which is nonspecific but may represent a cyst. This area measures approximately 7 mm in diameter. Small hiatal hernia. Kidneys and other solid viscera otherwise normal. CT pelvis Mild to moderate colonic diverticulosis. No evidence of diverticulitis. No bowel dilatation. No evidence of appendicitis. Normal appendix is thought to be seen. No lymphadenopathy. No osseous destruction. Opinion- No acute findings. Possible cholelithiasis. Followup right upper quadrant ultrasound study suggested if clinically warranted. Tiny area of decreased attenuation in the liver which is nonspecific but may represent a cyst. General Cleaner- [id number] Reading Physician- DUKE STILES MD Released Date Time- 07/15/09 0324 Lito Rocha MD [facility] RAD HISTORICAL Final Result * MM DIG DIAG CHALINO PANEL W/CAD (07/06/2009 2:37 PM EST) Anatomical Region Laterality Modality Other 07/06/2009 2:37 PM EST Narrative 07/06/2009 3:57 PM EST Procedure-MM DIG DIAG CHALINO PANEL W/CAD MM DIGITAL DIAG BILAT PANEL Bilateral CC and MLO view(s) were taken. Prior study comparison- December 25, 1999, bilateral diagnostic mammogram. There are scattered fibroglandular densities. 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 No significant changes when compared with prior studies. IMPRESSION- Benign finding ([id number]) RECOMMENDATION- Routine screening mammogram in 1 year. * The patient with a palpable abnormality, unexplained by breast imaging, should be managed on clinical basis by the attending physician. * Breast imaging has a false negative rate of 15%. * The patient was notified by mail of the results of this examination. The mammogram was reviewed by a Radiologist and CAD. General Cleaner- ANASTASIA Melton Physician- RUDI PAGE MD Released Date Time- 07/06/09 160 Procedure Note Rudi Page - 08/31/2009 Procedure-MM DIG DIAG CHALINO PANEL W/CAD MM DIGITAL DIAG BILAT PANEL Bilateral CC and MLO view(s) were taken. Prior study comparison- December 25, 1999, bilateral diagnostic mammogram. There are scattered fibroglandular densities. 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 No significant changes when compared with prior studies. IMPRESSION- Benign finding ([id number]) RECOMMENDATION- Routine screening mammogram in 1 year. * The patient with a palpable abnormality, unexplained by breast imaging, should be managed on clinical basis by the attending physician. * Breast imaging has a false negative rate of 15%. * The patient was notified by mail of the results of this examination. The mammogram was reviewed by a Radiologist and CAD. General Cleaner- ANASTASIA Melton Physician- RUDI PAGE MD Released Date Time- 07/06/091601 Kyaw Shook MD [facility] RAD HISTORICAL Nelly l Result * EK EKG REG (07/28/2008 10:38 AM EST) Only the most recent of2 resultswithin the time period is included. Anatomical Region Laterality Modality Other 07/28/2008 10:3 8 AM EST Narrative 07/28/2008 9:59 PM EST PER THANKS Sinus rhythm Normal ECG General Cleaner- IVAN MILLAN MD Reading Physician- IVAN MILLAN MD Released Date Time- 07/28/082158 Procedure Ivan Brasher - 08/30/2009 PER MD ABREU Sinus rhythm Normal ECG General Cleaner- IVAN Melton Physician- IVAN MILLAN MD Released Date Time- 07/28/082158 Micheal Eisenberg MD [facility] CARD HISTORIC AL Final Result * XR CHEST PORTABLE (07/27/2008 5:50 PM EST) Anatomical Region Laterality Modality Other 07/27/2008 5:50 PM EST Narrative 07/27/2008 9:32 PM EST Chest Indications- Pain. History- Pain. Single frontal view of the chest demonstrates the heart size to be within normal limits. Lungs are clear. Impression- No infiltrate. General Cleaner- JOSE eMlton Physician- SIMEON GASTELUM M.D. Released Date Time- 07/27/082155 Procedure Note Simeon Gastelum 08/30/2009 Chest Indications- Pain. History- Pain. Single frontal view of the chest demonstrates the heart size to be within normal limits. Lungs are clear. Impression- No infiltrate. General Cleaner- JOSE Melton Physician- SIMEON GASTELUM M.D. Released Date Time- 07/27/082155 Juan Antonio Cheng MD [facility] Final Result Visit Diagnoses Diagnosis Start Date Mitral valve prolapse Mitral valve disorders 04/20/2012 Aortic valve regurgitation Aortic valve disorders 04/20/2012 Tricuspid valve regurgitation Diseases of tricuspid valve 04/20/2012 Mitral valve prolapse Mitral valve disorders 04/23/2012 Aortic valve regurgitation Aortic valve disorders 04/23/2012 Tricuspid valve regurgitation Diseases of tricuspid valve 04/23/2012 Other screening mammogram 05/09/2013 Post-menopausal Asymptomatic postmenopausal status (age-related) (natural) 05/09/2013 Screening Screening for unspecified condition 05/09/2013 Multiple thyroid nodules Nontoxic multinodular goiter 09/23/2013 Neoplasm of uncertain behavior of other and unspecified endocrine glands 10/20/2013 Malignant neoplasm of thyroid gland (HCC) Malignant neoplasm of thyroid gland 11/17/2013 Thyroid cancer (HCC) Malignant neoplasm of thyroid gland 11/17/2013 Hypocalcemia 11/24/2013 Thyroid cancer (HCC) Malignant neoplasm of thyroid gland 12/13/2013 Post-surgical hypothyroidism Postsurgical hypothyroidism 12/13/2013 Osteopenia Disorder of bone and cartilage, unspecified 12/13/2013 Thyroid cancer (HCC) Malignant neoplasm of thyroid gland 01/04/2014 Post-surgical hypothyroidism Postsurgical hypothyroidism 01/04/2014 Osteopenia Disorder of bone and cartilage, unspecified 01/04/2014 Thyroid cancer (HCC) Malignant neoplasm of thyroid gland 01/10/2014 Post-surgical hypothyroidism Postsurgical hypothyroidism 01/10/2014 Osteopenia Disorder of bone and cartilage, unspecified 01/10/2014 Vitamin D deficiency Unspecified vitamin D deficiency 01/10/2014 Post-surgical hypothyroidism Postsurgical hypothyroidism 04/12/2014 Vitamin D deficiency Unspecified vitamin D deficiency 04/12/2014 Thyroid cancer (HCC) Malignant neoplasm of thyroid gland 04/17/2014 Post-surgical hypothyroidism Postsurgical hypothyroidism 04/17/2014 Osteopenia Disorder of bone and cartilage, unspecified 04/17/2014 Vitamin D deficiency Unspecified vitamin D deficiency 04/17/2014 Thyroid cancer (HCC) Malignant neoplasm of thyroid gland 09/26/2014 Thyroid cancer (HCC) Malignant neoplasm of thyroid gland 09/26/2014 Post-surgical hypothyroidism Postsurgical hypothyroidism 09/26/2014 Thyroid cancer (HCC) Malignant neoplasm of thyroid gland 10/03/2014 Post-surgical hypothyroidism Postsurgical hypothyroidism 10/03/2014 Subclinical hyperthyroidism, iatrogenic Thyrotoxicosis without mention of goiter or other cause, without mention of thyrotoxic crisis or storm 10/03/2014 Vitamin D deficiency Unspecified vitamin D deficiency 10/03/2014 Osteopenia Disorder of bone and cartilage, unspecified 10/03/2014 Post-surgical hypothyroidism Postsurgical hypothyroidism 04/11/2015 Vitamin D deficiency Unspecified vitamin D deficiency 04/11/2015 Thyroid cancer (HCC) Malignant neoplasm of thyroid gland 04/13/2015 Post-surgical hypothyroidism Postsurgical hypothyroidism 04/13/2015 Subclinical hyperthyroidism, iatrogenic Thyrotoxicosis without mention of goiter or other cause, without mention of thyrotoxic crisis or storm 04/13/2015 Osteopenia Disorder of bone and cartilage, unspecified 04/13/2015 Vitamin D deficiency Unspecified vitamin D deficiency 04/13/2015 Encounter for screening for malignant neoplasm of breast 03/04/2018 Postmenopausal status Asymptomatic postmenopausal status (age-related) (natural) 03/04/2018 Urinary frequency 02/18/2019 Recurrent UTI Urinary tract infection, site not specified 02/18/2019 Rectocele 02/18/2019 Cystocele, midline 02/18/2019 Incomplete bladder emptying 02/18/2019 Atrophy of vagina Postmenopausal atrophic vaginitis 02/18/2019 Atrophy of vagina Postmenopausal atrophic vaginitis 02/22/2019 Female genital prolapse, unspecified type 03/23/2019 LYNDON (stress urinary incontinence, female) Female stress incontinence 03/23/2019 OAB (overactive bladder) Hypertonicity of bladder 03/23/2019 Urinary frequency 03/23/2019 Rectocele 04/15/2019 Overactive bladder Hypertonicity of bladder 04/15/2019 Incomplete bladder emptying 04/15/2019 Cystocele, midline 04/15/2019 Atrophy of vagina Postmenopausal atrophic vaginitis 04/15/2019 Stress incontinence Female stress incontinence 04/15/2019 Rectocele 04/19/2019 Overactive bladder Hypertonicity of bladder 04/19/2019 Incomplete bladder emptying 04/19/2019 Cystocele, midline 04/19/2019 Stress incontinence Female stress incontinence 04/19/2019 Rectocele 07/12/2019 Overactive bladder Hypertonicity of bladder 07/12/2019 Incomplete bladder emptying 07/12/2019 Cystocele, midline 07/12/2019 Stress incontinence Female stress incontinence 07/12/2019 Atrophy of vagina Postmenopausal atrophic vaginitis 07/12/2019 Preop testing Preoperative examination, unspecified 07/18/2019 Overactive bladder Hypertonicity of bladder 07/18/2019 Rectocele 07/19/2019 Overactive bladder Hypertonicity of bladder 07/19/2019 Incomplete bladder emptying 07/19/2019 Cystocele, midline 07/19/2019 Stress incontinence Female stress incontinence 07/19/2019 Rectocele 07/19/2019 Overactive bladder Hypertonicity of bladder 07/19/2019 Incomplete bladder emptying 07/19/2019 Cystocele, midline 07/19/2019 Stress incontinence Female stress incontinence 07/19/2019 Atrophy of vagina Postmenopausal atrophic vaginitis 07/19/2019 Postoperative visit 08/02/2019 BV (bacterial vaginosis) Vaginitis and vulvovaginitis, unspecified 08/02/2019 Urinary frequency 08/30/2019 Postoperative visit 08/30/2019 Overactive bladder Hypertonicity of bladder 08/30/2019 Recurrent UTI Urinary tract infection, site not specified 08/30/2019 Vaginal atrophy Postmenopausal atrophic vaginitis 08/30/2019 Postoperative visit 02/07/2020 Visit for pelvic exam Routine gynecological examination 02/07/2020 History of vaginal surgery Other postprocedural status 02/07/2020 Vaginal atrophy Postmenopausal atrophic vaginitis 02/07/2020 Granulation tissue at vaginal vault Unspecified noninflammatory disorder of vagina 02/07/2020 Other constipation 02/07/2020 Essential hypertension Unspecified essential hypertension 09/13/2020 Regular check-up Routine general medical examination at a health care facility 09/23/2021 Encounter to establish care Reserved for inherently not codable concepts WITHOUT codable children 01/08/2023 Heart murmur Undiagnosed cardiac murmurs 01/08/2023 Right carotid bruit Other symptoms involving cardiovascular system 01/08/2023 Nonrheumatic aortic valve insufficiency Aortic valve disorders 01/08/2023 Mitral valve prolapse Mitral valve disorders 01/08/2023 Left foot pain Pain in limb 02/02/2023 Left foot pain Pain in limb 02/02/2023 Contusion of left foot, initial encounter 02/02/2023 Encounter to establish care Reserved for inherently not codable concepts WITHOUT codable children 02/20/2023 Heart murmur Undiagnosed cardiac murmurs 02/20/2023 Right carotid bruit Other symptoms involving cardiovascular system 02/20/2023 Encounter to establish care Reserved for inherently not codable concepts WITHOUT codable children 02/20/2023 Heart murmur Undiagnosed cardiac murmurs 02/20/2023 Right carotid bruit Other symptoms involving cardiovascular system 02/20/2023 Nonrheumatic aortic valve insufficiency Aortic valve disorders 04/09/2023 Mitral valve prolapse Mitral valve disorders 04/09/2023 Tricuspid valve insufficiency, unspecified etiology 04/09/2023 Intra-abdominal and pelvic swelling, mass and lump, unspecified site 07/17/2023 Family history of aortic aneurysm Family history of other cardiovascular diseases 07/17/2023 History of thyroid cancer Personal history of malignant neoplasm of thyroid 07/17/2023 Gastroesophageal reflux disease, unspecified whether esophagitis present 07/17/2023 Gastrointestinal hemorrhage, unspecified gastrointestinal hemorrhage type 09/06/2023 Acute pain of left shoulder 11/05/2023 Chronic left shoulder pain Pain in joint, shoulder region 11/05/2023 Screening mammogram for breast cancer 11/11/2023 Biceps tendinitis of left upper extremity 11/12/2023 Subacromial bursitis of left shoulder joint 11/12/2023 Biceps tendinitis of left upper extremity 12/28/2023 Subacromial bursitis of left shoulder joint 12/28/2023 Nonrheumatic aortic valve insufficiency Aortic valve disorders 02/11/2024 Gastrointestinal hemorrhage, unspecified gastrointestinal hemorrhage type 02/11/2024 Nonrheumatic aortic valve insufficiency Aortic valve disorders 08/31/2024 Gastrointestinal hemorrhage, unspecified gastrointestinal hemorrhage type 08/31/2024 Abnormal auditory perception of both ears 09/13/2024 Tinnitus, bilateral Unspecified tinnitus 09/13/2024 H/O malignant neoplasm of thyroid Personal history of malignant neoplasm of thyroid 09/13/2024 H/O total thyroidectomy 09/13/2024 Nasal congestion Other diseases of nasal cavity and sinuses 09/13/2024 Post-nasal drip Postnasal drip 09/13/2024 Sensory hearing loss, bilateral 09/13/2024 Acute recurrent sinusitis, unspecified location 09/13/2024 Nasal congestion Other diseases of nasal cavity and sinuses 10/06/2024 Post-nasal drip Postnasal drip 10/06/2024 Acute recurrent sinusitis, unspecified location 10/06/2024 Nasal congestion Other diseases of nasal cavity and sinuses 10/21/2024 Acute recurrent sinusitis, unspecified location 10/21/2024 Chronic maxillary sinusitis 10/24/2024 Nasal congestion Other diseases of nasal cavity and sinuses 10/24/2024 Nonrheumatic aortic valve insufficiency Aortic valve disorders 11/09/2024 Bruit of right carotid artery 11/09/2024 Right carotid bruit Other symptoms involving cardiovascular system 11/09/2024 Rectocele 07/19/2019 Overactive bladder Hypertonicity of bladder 07/19/2019 Incomplete bladder emptying 07/19/2019 Cystocele, midline 07/19/2019 Stress incontinence Female stress incontinence 07/19/2019 Gastrointestinal hemorrhage, unspecified gastrointestinal hemorrhage type 09/06/2023 Mitral valve prolapse Mitral valve disorders 09/06/2023 Aortic valve regurgitation Aortic valve disorders 09/06/2023 Post-surgical hypothyroidism Postsurgical hypothyroidism 09/06/2023 Acute blood loss anemia Acute posthemorrhagic anemia 09/06/2023 Hypokalemia Hypopotassemia 09/06/2023 Care Teams Distribution Operations Supervisor Relationship Specialty Start Date End Date Kyaw Shook MD [address] [facility] [address] [place] [id number] PCP - General Family Medicine 07/12/19 Zbigniew Ramos MD [address] [place] [address] [place] [address] Physician Internal Medicine-Cardiovascular Disease 03/26/12 Janina Montes MD [address] [facility] [address] [place] [address] Internal Medicine-Endocrinology, Diabetes & Metabolism 01/10/14
--- OUTSIDE RECORDS SUMMARY | 2025-02-28 11:04 | XMS_ITS | Clinical Summary ---
Author Organization [facility] Address [address] [place] [id number] Care Team Providers Care Heel Top Lift Splitter Name Role Phone Kyaw Shook MD Primary Care Provider Allergies Active Allergy Reactions Criticality Noted Date [...] Vaccines (1 - 1-dose 75+ series) 2021 Advance Care Planning 06/22/2024 Depression Screening 06/22/2024 COVID-19 Vaccine ( - season) 2025 Influenza Vaccination (#1) 2025 Care Teams Heel Top Lift Splitter Relationship Specialty Start Date End Date Kyaw Shook MD PCP - General Family Medicine 08/30/13
== END 2025-02-27 23:59 ==
LOC: LAB.DROPOF 02-28 10:50
PROVIDERS: PCP Nurse Practitioner; Visit Provider Nurse Practitioner
DX: N39.0 Urinary tract infection, site not specified (principal)
CPT/HCPCS: 87086; 87088

== ENCOUNTER 2025-03-22 09:42 | Outpatient (CLI) | payer MEDICARE, SELFPAY ==
--- OUTSIDE RECORDS SUMMARY | 2025-03-22 14:21 | XMS_ITS | Encounter Summary ---
Author Organization [place] [address] Care Team Providers Care Reamer Hand Name Role Phone Robert Ramos MD Unavailable [phone] Janina Montes MD Unavailable [phone] Kywa Shook MD Primary Care Provider [phone] Reason for Referral * Mammography (Routine) - Pending Review Specialty Diagnoses / Procedures Referred By Contvaibhav t Referred To Contact Radiology Diagnoses Encounter for screening mammogram for malignant neoplasm of breast Procedures MM MAMMO DIGITAL ELINA SCREEN Kyaw Rosales MD [address] [place] [address] Phone: tel: fax: Referral ID Status Reason Start Date Expiration Date V isits Requested Visits Authorized [id number] Pending Review 03/22/2025 03/22/2027 1 1 Reason for Visit * Mammography (Routine) - Pending Review Specialty Diagnoses / Procedures Referred By Contvaibhav t Referred To Contact Radiology Diagnoses Encounter for screening mammogram for malignant neoplasm of breast Procedures MM MAMMO DIGITAL ELINA SCREEN BILAT Kyaw Shook MD [address] [place] [address] Phone: tel: fax: Referral ID Status Reason Start Date Expiration Date V isits Requested Visits Authorized [id number] Pending Review 03/22/2025 03/22/2027 1 1 Encounter Details Date Type Department Care Team (Latest Contact Info) Description 03/22/2025 2:21 PM EDT - 03/22/2025 11:59 PM EDT Hospital Encounter [facility] Mammogram Van [address] [address] Kyaw Shook MD [address] [place], [place] [address] Encounter for screening mammogram for malignant neoplasm of breast Discharge Disposition: Home or Self Care Social History Tobacco Use Types Packs/Day Years Used Date Smoking Tobacco: Never Smokeless Tobacco: Never Alcohol Use Standard Drinks/Week Comments Yes 0 (1 standard drink = 0.6 oz pur e alcohol) rare [facility] Utilities Answer Date Recorded In the past 12 months has [employer] electric, gas, oil, or water company threatened [...] Date Recorded PHQ-2 Total Score 0 09/07/2023 [facility] [place] of Occupat ional Health - Occupational Stress [...] money to get more. Never true 09/07/2023 [facility] IP Transportation Answer D ate Recorded In [...] azelastine (ASTELIN) 137 mcg (0.1 %) Nasl [place], Non-AerosolIndicati ons:Nasal congestion,Post-dyan al drip,Acute recurrent sinusitis, [...] per week thereafter 1 Tube 3 03/14/2019 famotidine (PEPCID) 40 mg Oral Tablet Take 40 mg by mouth. 10/29/2023 losartan (COZAAR) 100 mg Oral Tablet Take 1 Tablet by mouth daily. Restart 09/10/2023 olopatadine (PATANOL) 0.1 % ophthalmic solutionIndications :Mitral valve prolapse,Aortic valve regurgitation,Tricu spid valve regurgitation Place 1 Drop into both eyes 2 times daily. Prn pantoprazole (PROTONIX) 40 mg Oral Tablet, Delayed Release (E.C.) Take 40 mg by mouth daily. 11/06/2024 polyethylene glycol (GLYCOLAX, MIRALAX) 17 gram Oral Powder in Packet Take 17 g by mouth 2 times daily. 60 Packet 1 07/20/2019 sulfamethoxazole-tr imethoprim (BACTRIM DS) 800-160 mg Oral Tablet Take 1 Tablet by mouth 2 times daily. 11/03/2024 SYNTHROID 100 mcg Oral Tablet Take 100 mcg by mouth daily. 11/02/2023 triamcinolone (NASACORT) 55 mcg Nasl Aerosol, [place] 2 Sprays by Nasal route daily. 16.5 g 5 09/13/2024 documented as of this encounter Discharge Disposition Disposition Code Departure Means Destination Home or Self Care documented in this encounter Plan of Treatment Upcoming Encounters Date Type Department Care Team (Late st Contact Info) Description 04/06/2025 10:30 AM EDT Appointment [facility] [place] [address] Stephon Galan MD [address] [place] [address] [place] [address] 11/10/2025 1:30 PM EDT Office Visit [facility] [place] [address] [place] [address] [place] [address] Stephon Galan MD [address] [place] [address] [place] [address] documented as of this encounter Procedures Procedure [...] EDT Impressions 03/23/2025 8:22 AM EDT Benign ([id number]) RECOMMENDATION: Routine Screening Mammogram in 1 Year Bilateral . . COMMENTS: DISCLAIMER *The patient was notified by MyChart or mail of the results for this examination. *The patient's information was entered into a reminder system with a target due date for the next breast imaging, in accordance with the [employer] and the Society of [...] for screening mammogram for malignant neoplasm of [id number]-[id number]-CM COMPARISON STUDIES: Compared with prior studies the most recent being 11/11/2023 MM MAMMO DIGITAL ELINA SCREEN BILAT at [facility] 03/04/2018 MM MAMMO DIGITAL SCREENING W CAD BILAT at [facility] 05/09/2013 MM MAMMO DIGITAL SCREENING W CAD BILAT at [facility] TISSUE DENSITY: There are scattered areas of fibroglandular density. FINDINGS: No mammographic evidence of malignancy. 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 Procedure Note Rudi Hinojosa, DO - 03/23/2025 EXAM: MM MAMMO DIGITAL ELINA SCREEN BILAT EXAM DATE: 03/22/2025 2:27 PM INDICATION: Z12.31-Encounter for screening mammogram for malignantneoplasm of [id number]-CM COMPARISON STUDIES: Compared with prior studies the most recent being 11/11/2023 MM MAMMO DIGITAL ELINA SCREEN BILAT at [facility] 03/04/2018 MM MAMMO DIGITAL SCREENING W CAD BILAT at [facility] 05/09/2013 MM MAMMO DIGITAL SCREENING W CAD BILAT at [facility] TISSUE DENSITY: There are scattered areas of fibroglandular density. FINDINGS: No mammographic evidence of malignancy. 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 IMPRESSION: Benign ([id number]) RECOMMENDATION: Routine Screening Mammogram in 1 Year Bilateral . . COMMENTS: DISCLAIMER *The patient was notified by MyChart or mail of the results for this examination. *The patient's information was entered into a reminder system with atarget due date for the next breast imaging, in accordance with the [employer] and the Society of Breast Imaging recommendations. *Breast Imaging has a false negative rate of 15%. *Any patient with a palpable abnormality, unexplained by breast imaging,should be managed on a clinical basis by the attending physician. Kyaw Shook MD IMG MAMMOGRAPHY ORDERABLES Final Result documented in this encounter Visit Diagnoses Diagnosis Encounter for screening mammogram for malignant neoplasm of breast Other screening mammogram documented in this encounter Care Teams Reamer Hand Relationship Specialty Start Date End Date Kyaw Shook MD [address] [facility] [address] [place] [address] PCP - General Family Medicine 07/12/19 Robert Ramos MD [address] [place], [place] [address] Physician Internal Medicine-Cardiovascular Disease 03/26/12 Janina Montes MD [address] [facility] [address] [place] [address] Internal Medicine-Endocrinology, Diabetes & Metabolism 01/10/14 documented as of this encounter
[2025-03-22 17:35] LABS: T4 (Thyroxine) 14.4 ug/dl (5.53-11.0)
[2025-03-22 17:49] LABS: Thyroid Stimulating Hormone 3.25 uIU/mL (0.465-4.68)
--- OUTSIDE RECORDS SUMMARY | 2025-03-23 10:09 | XMS_ITS | Encounter Summary ---
Author Organization [facility] Address [address] [address] Care Team Providers Care Type Copyist Name Role Phone Robert Ramos MD Unavailable [phone] Janina Montes MD Unavailable Kyaw Shook MD Primary Care Provider Reason for Visit * Reason Comments Medication Refill Encounter Details Date Type Department Care Team (Late st Contact Info) Description 03/11/2025 Refill [facility] [address] [address] Zehra Colon PA-C [address] [address] Medication Refill Social History Tobacco Use Types Packs/Day Years Used Date Smoking Tobacco: Never Smokeless Tobacco: Never Alcohol Use Standard Drinks/Week Comments Yes 0 (1 standard drink = 0.6 oz pur e alcohol) rare [facility] Utilities Answer Date Recorded In the past 12 months has [employer] electric, gas, oil, or water company threatened [...] Date Recorded PHQ-2 Total Score 0 09/07/2023 [facility] of Occupat ional Health [...] more. Never true 09/07/2023 [facility] IP Transportation Answer D ate [...] Assessment Author No 07/20/2019 8:43 AM Crystal Marrufo, PAO * Is the person blind or does [...] Refills Last Filled Start Date End Date azelastine (ASTELIN) 137 mcg (0.1 %) Nasl [place], Non-AerosolIndicat ions:Nasal congestion,Post-na aparna drip,Acute recurrent sinusitis, unspecified location 2 SPRAYS IN EACH NOSTRIL 2 TIMES DAILY FOR 90 DAYS. USE IN EACH NOSTRIL DIRECTED 90 mL 3 03/13/2025 documented in this encounter Miscellaneous Notes * Telephone Encounter - Belén Christensen CMA - 03/13/2025 3:00 PM EDT Pharm refill request. TAMERA 3-25-25 documented in this encounter Plan of Treatment Upcoming Encounters Date Type Department Care Team (Late st Contact Info) Description 04/06/2025 10:30 AM EDT Appointment [facility] [place] [address] Stephon Galan MD [address] [place] [address] [place] [address] 11/10/2025 1:30 PM EDT Office Visit [facility] [place] [address] [place] [address] Stephon Galan MD [address] [place] [place] [address] documented as of this encounter Visit Diagnoses Diagnosis Nasal congestion Other diseases of nasal cavity and sinuses Post-nasal drip Postnasal drip Acute recurrent sinusitis, unspecified location documented in this encounter Discontinued Medications Medication Sig Discontinue Reason Start Date End Da te azelastine (ASTELIN) 137 mcg (0.1 %) Nasl [place], Non-AerosolIndications:N patrick congestion,Post-nasal drip,Acute recurrent sinusitis, unspecified location 2 Sprays in each nostril 2 times daily for 90 days. Use in each nostril as directed 10/06/2024 03/13/2025 documented as of this encounter Care Teams Type Copyist Relationship Specialty Start Date End Date Kyaw Shook MD [address] [facility] [address] [place] [address] PCP - General Family Medicine 07/12/19 Robert Ramos MD [address] [place] [address] [place] [address] Physician Internal Medicine-Cardiovascular Disease 03/26/12 Janina Montes MD [address] [facility] [address] [place] [address] Internal Medicine-Endocrinology, Diabetes & Metabolism 01/10/14 documented as of this encounter
--- OUTSIDE RECORDS SUMMARY | 2025-03-23 10:09 | XMS_ITS | Encounter Summary ---
Author Organization [place] [address] Care Team Providers Care Chemistry Account Manager Name Role Phone Robert Ramos MD Unavailable [phone] Janina Montes MD Unavailable Kyaw Shook MD Primary Care Provider Reason for Visit * Reason Onset Date Comments Medication Refill 01/24/2025 Patient Question 01/24/2025 Encounter Details Date Type Department Care Team (Late st Contact Info) Description 01/24/2025 Telephone [facility] [place] [address] [place] [address] Stephon Galan MD [address] [facility] [address] Medication Refill; Patient Question Social History Tobacco Use Types Packs/Day Years Used Date Smoking Tobacco: Never Smokeless Tobacco: Never Alcohol Use Standard Drinks/Week Comments Yes 0 (1 standard drink = 0.6 oz pur e alcohol) rare [facility] Utilities Answer Date Recorded In the past 12 months has [employer], gas, oil, or water company threatened to [...] Date Recorded PHQ-2 Total Score 0 09/07/2023 [facility] of Occupat ional Health - Occupational Stress [...] money to get more. Never true 09/07/2023 [facility] IP Transportation Answer D ate Recorded In [...] sure what [facility] She is also asking about the carotid order is she to get that done ? Please call and advise documented in this encounter Plan of Treatment Upcoming Encounters Date Type Department Care Team (Late st Contact Info) Description 04/06/2025 10:30 AM EDT Appointment [facility] [place] [address] Stephon Galan MD [address] [place] [address] [place] [address] 11/10/2025 1:30 PM EDT [place] [address] Stephon Galan MD [address] [place] [address] [place] [address] documented as of this encounter Visit Diagnoses Not on filedocumented in this encounter Care Teams Chemistry Account Manager Relationship Specialty Start Date End Date Kyaw Shook MD [address] [address] PCP - General Family Medicine 07/12/19 Robert Ramos MD [address] [place] [address] [place] [address] Physician Internal Medicine-Cardiovascular Disease 03/26/12 Janina Montes MD [address] [address] Internal Medicine-Endocrinology, Diabetes & Metabolism 01/10/14 documented as of this encounter
--- OUTSIDE RECORDS SUMMARY | 2025-03-23 10:10 | XMS_ITS | Clinical Summary ---
Author Organization [facility] Address [address] [place] [address] Care Team Providers Care Travel Accommodation Inspector Name Role Phone Kyaw Shook MD Primary Care Provider [phone] Allergies Active Allergy Reactions Criticality Noted Date [...] 2025 Influenza Vaccination (#1) 2025 Care Teams Travel Accommodation Inspector Relationship Specialty Start Date End Date Kyaw Shook MD PCP - General Family Medicine 08/30/13
== END 2025-03-22 23:59 ==
LOC: LAB.DROPOF 03-23 10:08
PROVIDERS: PCP Family Medicine; Visit Provider Family Medicine
DX: R35.0 Frequency of micturition (principal); Z85.850 Personal history of malignant neoplasm of thyroid; I10 Essential (primary) hypertension
CPT/HCPCS: 84436; 84443; 87086; 87088

== ENCOUNTER 2025-05-11 15:15 | Outpatient (CLI) | payer MEDICARE, SELFPAY ==
--- OUTSIDE RECORDS SUMMARY | 2025-03-22 13:21 | XMS_ITS | Encounter Summary ---
Author Organization [place] [address] Care Team Providers Care Liturgical Music Director Name Role Phone Robert Ramos MD Unavailable [phone] Janina Montes MD Unavailable [phone] Kyaw Shook MD Primary Care Provider [phone] Reason for Referral * Mammography (Routine) - Pending Review Specialty Diagnoses / Procedures Referred By Contac t Referred To Contact Radiology Diagnoses Encounter for screening mammogram for malignant neoplasm of breast Procedures MM MAMMO DIGITAL ELINA SCREEN BILAT Kyaw Shook MD [address] [place] [address] Phone: tel: fax: Referral ID Status Reason Start Date Expiration Date V isits Requested Visits Authorized [id number] Pending Review 03/22/2025 03/22/2027 1 1 Reason for Visit * Mammography (Routine) - Pending Review Specialty Diagnoses / Procedures Referred By Contac t Referred To Contact Radiology Diagnoses Encounter for screening mammogram for malignant neoplasm of breast Procedures MM MAMMO DIGITAL ELINA SCREEN Kyaw Rosales MD [address] [place] [address] Phone: tel: fax: Referral ID Status Reason Start Date Expiration Date V isits Requested Visits Authorized [id number] Pending Review 03/22/2025 03/22/2027 1 1 Encounter Details Date Type Department Care Team (Latest Contact Info) Description 03/22/2025 2:21 PM EDT - 03/22/2025 11:59 PM EDT Hospital Encounter [facility] [address] [address] Kyaw Shook MD [address] [place], [place] [id number] Encounter for screening mammogram for malignant neoplasm of breast Discharge Disposition: Home or Self Care Social History Tobacco Use Types Packs/Day Years Used Date Smoking Tobacco: Never Smokeless Tobacco: Never Alcohol Use Standard Drinks/Week Comments Yes 0 (1 standard drink = 0.6 oz pur e alcohol) rare [facility] Utilities Answer Date Recorded In the past 12 months has e electric, gas, oil, or water [employer] threatened to shut off services in your [...] Date Recorded PHQ-2 Total Score 0 09/07/2023 [facility] [place] of Occupat ional Health - Occupational Stress [...] money to get more. Never true 09/07/2023 [facility] IP Transportation Answer D ate Recorded [...] Crystal Marrufo RN documented in this encounter Medications at Time of Discharge amLODIPine (NORVASC) 10 mg Oral Tablet Take 1 Tablet by mouth daily. 09/09/2023 aspirin 81 mg Oral tablet Take 1 Tablet by mouth daily. Hold until Thursday09/12/2023 atorvastatin (LIPITOR) 20 mg Oral Tablet Take 20 mg by mouth daily. azelastine (ASTELIN) 137 mcg (0.1 %) Nasl [place], Non-AerosolIndicati ons:Nasal congestion,Post-dyan al drip,Acute recurrent sinusitis, unspecified location 2 SPRAYS IN EACH NOSTRIL 2 TIMES DAILY FOR 90 DAYS. USE IN EACH NOSTRIL DIRECTED 90 mL 3 03/13/2025 diclofenac (VOLTAREN) 1 % Top Gel Apply topically as needed. ergocalciferol (VITAMIN D) 50,000 unit Oral Capsule TAKE 1 CAPSULE BY MOUTH ONE TIME A WEEK 5 Cap 11 04/13/2015 estradiol (ESTRACE) 0.01 % (0.1 mg/gram) Vagl CreamIndications:At rophy of vagina Do not use Applicator. Apply pea-size amount with fingertip nightly x2 weeks, then apply 2-3 times per week thereafter 1 Tube 3 03/14/2019 losartan (COZAAR) 100 mg Oral Tablet Take 1 Tablet by mouth daily. Restart 09/10/2023 olopatadine (PATANOL) 0.1 % ophthalmic solutionIndications :Mitral valve prolapse,Aortic valve regurgitation,Tricu spid valve regurgitation Place 1 Drop into both eyes 2 times daily. Prn polyethylene glycol (GLYCOLAX, MIRALAX) 17 gram Oral Powder in Packet Take 17 g by mouth 2 times daily. 60 Packet 1 07/20/2019 sulfamethoxazole-tr imethoprim (BACTRIM DS) 800-160 mg Oral Tablet Take 1 Tablet by mouth 2 times daily. 11/03/2024 SYNTHROID 100 mcg Oral Tablet Take 100 mcg by mouth daily. 11/02/2023 triamcinolone (NASACORT) 55 mcg Nasl Aerosol, [place] 2 Sprays by Nasal route daily. 16.5 g 5 09/13/2024 famotidine (PEPCID) 40 mg Oral Tablet Take 40 mg by mouth. 10/29/2023 pantoprazole (PROTONIX) 40 mg Oral Tablet, Delayed Release (E.C.) Take 40 mg by mouth daily. 11/06/2024 documented as of this encounter Discharge Disposition Disposition Code Departure Means Destination Home or Self Care documented in this encounter Plan of Treatment Upcoming Encounters Date Type Department Care Team (Late st Contact Info) Description 06/01/2025 2:00 PM EST Appointment [facility] [address] [place] [address] Henry Hutchison MD [address] [place] [address] 11/10/2025 1:30 PM EDT Office Visit [facility] [address] [address] Stephon Galan MD [address] [place] [address] documented as of this encounter Procedures Procedure Name Priority Date/Time Associated Diagnosis Comments MM MAMMO DIGITAL ELINA SCREEN BILAT Routine 03/22/2025 2:27 PM EDT Encounter for screening mammogram for malignant neoplasm of breast documented in this encounter Results * MM MAMMO DIGITAL ELINA SCREEN BILAT (03/22/2025 2:27 PM EDT) Anatomical Region Laterality Modality Breast Bilateral Mammography 03/22/2025 2:27 PM EDT Impressions 03/23/2025 8:22 AM EDT Benign ([id number]) RECOMMENDATION: Routine Screening Mammogram in 1 Year Bilateral . . COMMENTS: DISCLAIMER *The patient was notified by MyChart or mail of the results for this examination. *The patient's information was entered into a reminder system with a target due date for the next breast imaging, in accordance with the [place] [employer] [employer] and the Society of Breast Imaging recommendations. *Breast Imaging has a false negative rate of 15%. *Any patient with a palpable abnormality, unexplained by breast imaging, should be managed on a clinical basis by the attending physician. Narrative 03/23/2025 8:22 AM EDT EXAM: MM MAMMO DIGITAL ELINA SCREEN BILAT EXAM DATE: 03/22/2025 2:27 PM INDICATION: Z12.31-Encounter for screening mammogram for malignant neoplasm of [id number] COMPARISON STUDIES: Compared with prior studies the most recent being 11/11/2023 MM MAMMO DIGITAL ELINA SCREEN BILAT at [facility] 03/04/2018 MM MAMMO DIGITAL SCREENING W CAD BILAT at [facility] 05/09/2013 MM MAMMO DIGITAL SCREENING W CAD BILAT at [facility] TISSUE DENSITY: There are scattered areas of fibroglandular density. FINDINGS: No mammographic evidence of malignancy. 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 Procedure Note Rudi Hinojosa DO - 03/23/2025 EXAM: MM MAMMO DIGITAL ELINA SCREEN BILAT EXAM DATE: 03/22/2025 2:27 PM INDICATION: Z12.31-Encounter for screening mammogram for malignantneoplasm of [id number]-CM COMPARISON STUDIES: Compared with prior studies the most recent being 11/11/2023 MM MAMMO DIGITAL ELINA SCREEN BILAT at [facility] 03/04/2018 MM MAMMO DIGITAL SCREENING W CAD BILAT at [facility] 05/09/2013 MM MAMMO DIGITAL SCREENING W CAD BILAT at [facility] TISSUE DENSITY: There are scattered areas of fibroglandular density. FINDINGS: No mammographic evidence of malignancy. 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 IMPRESSION: Benign ([id number]) RECOMMENDATION: Routine Screening Mammogram in 1 Year Bilateral . . COMMENTS: DISCLAIMER *The patient was notified by MyChart or mail of the results for this examination. *The patient's information was entered into a reminder system with atarget due date for the next breast imaging, in accordance with the [place] [employer] and the Society of Breast Imaging recommendations. *Breast Imaging has a false negative rate of 15%. *Any patient with a palpable abnormality, unexplained by breast imaging,should be managed on a clinical basis by the attending physician. us Kyaw Shook MD IMG MAMMOGRAPHY ORDERABLES Final Result documented in this encounter Visit Diagnoses Diagnosis Encounter for screening mammogram for malignant neoplasm of breast Other screening mammogram documented in this encounter Care Teams Liturgical Music Director Relationship Specialty Start Date End Date Kyaw Shook MD [address] [facility] [address] [place] [address] PCP - General Family Medicine 07/12/19 Robert Ramos MD [address] [place] [address] Physician Internal Medicine-Cardiovascular Disease 03/26/12 Janina Montes MD [address] [address] Internal Medicine-Endocrinology, Diabetes & Metabolism 01/10/14 documented as of this encounter
--- OUTSIDE RECORDS SUMMARY | 2025-04-06 08:29 | XMS_ITS | Encounter Summary ---
Author [place] [address] Care Team Providers Care Methods Analyst Data Processing Name Role Phone Robert Ramos MD Unavailable [phone] Janina Montes MD Unavailable Kyaw Shook MD Primary Care Provider [phone] Reason for Referral * Vascular Imaging (Routine) - Closed Specialty Diagnoses / Procedures Referred By Contac t Referred To Contact Radiology Diagnoses Nonrheumatic aortic valve insufficiency Bruit of right carotid artery Right carotid bruit Procedures [facility] CAROTID DUPLEX BILATERAL Stephon Galan MD [address] [place] [address] Phone: tel: fax: Referral ID Status Reason Start Date Expiration Date Visits Re quested Visits Authorized [id number] Closed 11/09/2024 11/09/2025 1 1 Reason for Visit * Vascular Imaging (Routine) - Closed Specialty Diagnoses / Procedures Referred By Contac t Referred To Contact Radiology Diagnoses Nonrheumatic aortic valve insufficiency Bruit of right carotid artery Right carotid bruit Procedures [facility] CAROTID DUPLEX BILATERAL Stephon Galan MD [address] [place] [address] [place] [address] Phone: tel: fax: Referral ID Status Reason Start Date Expiration Date Visits Re quested Visits Authorized [id number] Closed 11/09/2024 11/09/2025 1 1 Encounter Details Date Type Department Care Team (Latest Contact Info) Description 04/06/2025 9:29 AM EDT - 04/06/2025 11:59 PM EDT Hospital Encounter [facility] [address] [facility] [place] [address] Stephon Galan MD [address] [place] [address] [place] [address] Nonrheumatic aortic valve insufficiency; Bruit of right carotid artery; Right carotid bruit Discharge Disposition: Home or Self Care Social History Tobacco Use Types Packs/Day Years Used Date Smoking Tobacco: Never Smokeless Tobacco: Never Alcohol Use Standard Drinks/Week Comments Yes 0 (1 standard drink = 0.6 oz pur e alcohol) rare [facility] Utilities Answer Date Recorded In the past 12 months has e electric, gas, oil, or water [facility] threatened to shut off services in your [...] Date Recorded PHQ-2 Total Score 0 09/07/2023 [facility] [place] of Occupat ional Health - Occupational Stress [...] money to get more. Never true 09/07[facility]2023 [facility] [facility] IP Transportation Answer D ate Recorded In [...] azelastine (ASTELIN) 137 mcg (0.1 %) Nasl [place], Non-AerosolIndicati ons:Nasal congestion,Post-dyan al drip,Acute recurrent sinusitis, [...] 11/02/2023 triamcinolone (NASACORT) 55 mcg Nasl Aerosol, [place] 2 Sprays by Nasal route daily. 16.5 [...] PM EST Appointment [facility] [address] [place] [address] Henry Hutchison MD [address] [place] [address] 11/10/2025 1:30 PM EDT Office Visit [facility] [address] [address] Stephon Galan MD [address] [place] [address], [place] [address] documented as of this encounter Procedures Procedure Name Priority Date/Time Associated Diagnosis Comments [facility] CAROTID DUPLEX BILATERAL Routine 04/06/2025 10:08 AM EDT Nonrheumatic aortic valve insufficiency Bruit of right carotid artery Right carotid bruit documented in this encounter Results * [facility] US CAROTID DUPLEX BILATERAL (04/06/2025 10:08 AM EDT) Anatomical Region Laterality Modality Vascular, Head, Neck Vascular Im aging 04/06/2025 9:43 AM EDT Impressions 04/06/2025 6:59 PM EDT Conclusions * There is a right proximal internal carotid artery mildly obstructive lesion noted, with an estimated 1-39% stenosis. * There is a left proximal internal carotid artery mildly obstructive lesion noted, with an estimated 1-39% stenosis. * Antegrade flow visualized in the bilateral vertebral arteries. Narrative Procedure Note Lito Cross, - 04/06/2025 IMPRESSION Conclusions * There is a right proximal internal carotid artery mildly obstructive lesion noted, with an estimated 1-39% stenosis. * There is a left proximal internal carotid artery mildly obstructivelesion noted, with an estimated 1-39% stenosis. * Antegrade flow visualized in the bilateral vertebral arteries. us Stephon Galan MD IMG VASCULAR ORDERABLES Final Result documented in this encounter Visit Diagnoses Diagnosis Nonrheumatic aortic valve insufficiency Aortic valve disorders Bruit of right carotid artery Right carotid bruit Other symptoms involving cardiovascular system documented in this encounter Care Teams Methods Analyst Data Processing Relationship Specialty Start Date End Date Kyaw Shook MD [address] [id number] PCP - General Family Medicine 07/12/19 Robert Ramos MD [address] [place] [address] [id number] Physician Internal Medicine-Cardiovascular Disease 03/26/12 Janina Montes MD [address] [facility] [address] [place] [id number] Internal Medicine-Endocrinology, Diabetes & Metabolism 01/10/14 documented as of this encounter
--- OUTSIDE RECORDS SUMMARY | 2025-04-12 08:30 | XMS_ITS | Encounter Summary ---
[facility] Address [address] [place] [address] Care Team Providers Care Lead Game Designer Name Role Phone Robert Ramos MD Unavailable [phone] Janina Montes MD Unavailable [phone] Kyaw Shook MD Primary Care Provider [phone] Reason for Referral * Surgical (Routine) - AFF Authorization Not Needed Specialty Diagnoses / Procedures Referred By Contact Referred To Contact Gastroenterology Diagnoses Gastroesophageal reflux disease with esophagitis without hemorrhage Procedures ESOPHAGOGASTRODUODENOSCOPY (EGD) MD ESOPHAGOGASTRODUODENOSCOPY TRANSORAL DIAGNOSTIC MD DILATION ESOPH UNGUIDED SOUND/BOUGIE 1/MULT PASS MD EGD INSERT GUIDE WIRE DILATOR PASSAGE ESOPHAGUS MD EGD BALLOON DILATION ESOPHAGUS <30 MM DIAM Henry Hutchison MD [address] [place] [address] Phone: tel:[phone] fax: Henry Hutchison MD [address] [place] [address] Phone: tel:[phone] fax:[phone] Referral ID Status Reason Start Date Expiration Date Visits Requested Visits Authorized [id number] AFF Authorization Not Needed 04/12/2026 1 1 Reason for Visit * Reason Comments Gastroesophageal Reflux Encounter Details Date Type Department Care Team (Latest Contact Info) Description 04/12/2025 9:30 AM EDT Office Visit [facility] [address] [place] [address] Henry Hutchison MD [address] [place] [place] [address] Gastroesophageal reflux disease with esophagitis without hemorrhage (Primary Dx) Social History Tobacco Use Types Packs/Day Years Used Date Smoking Tobacco: Never Smokeless Tobacco: Never Tobacco Cessation:Counseling Given: Not Answered Alcohol Use Standard Drinks/Week Comments Yes 0 (1 standard drink = 0.6 oz pur e alcohol) rare [facility] Utilities Answer Date Recorded In the past 12 months has [employer], gas, oil, or water company threatened [...] Date Recorded PHQ-2 Total Score 0 09/07/2023 [facility] [place] [facility] - Occupational Stress [...] money to get more. Never true [facility] IP Transportation Answer D ate Recorded [...] Sign Reading Time Taken Comments Blood Pressure 124/68 04/12/2025 9:29 AM EDT Pulse 81 04/12/2025 9:29 AM EDT Temperature 36.1 C (96.9 F) 04/12/2025 9:29 AM EDT Respiratory Rate 17 04/12/2025 9:29 AM EDT Oxygen Saturation - - Inhaled Oxygen Concentration - - Weight 59.1 kg (130 lb 6.4 oz) 04/12/2025 9:29 A M EDT Height 165.1 cm (5' 5 ) 04/12/2025 9:29 AM EDT Body Mass Index 21.7 04/12/2025 9:29 AM EDT documented in this encounter Functional Status [...] Refills Last Filled Start Date End Date pantoprazole (PROTONIX) 40 mg Oral Tablet, Delayed Release (E.C.)Indications:G astroesophageal reflux disease with esophagitis without hemorrhage Take 1 Tablet by mouth 2 times daily. 60 Tablet 5 04/12/2025 documented in this encounter Progress Notes * Henry Hutchison MD - 04/12/2025 9:30 AM EDT Images from the original note were not included. Subjective Subjective: Patient ID: Ms. Huffman is a 79 y.o. female was referred by No ref. provider found here for Chief Complaint Patient presents with Gastroesophageal Reflux HPI: HPI This is a 79-year-old female who presents for evaluation of GERD. The patient was previously seen in the hospital in August 2023 by GI. At that time she saw [facility]. At that time she was noted to have anemia and blood in the stool. Dark red loose stool. CT GI bleed protocol showed hyperemia in the ascending colon. She underwent a colonoscopy at that time notable for no mass or no AVM. Few small erosions in the ascending colon. No source of bleeding was noted at that time. The patient states she is here because of increasing issues with acid reflux and heartburn. She states that despite being on pantoprazole she continues to have symptoms. Tried Pepcid did not help. She feels like her voice is changed and that the acid goes all the way up to her ears and head. She saw ENT and states her workup was reassuring. She denies any trouble swallowing. No pain with swallowing. She is avoiding certain foods so maybe has lost a couple of pounds but overall weight is stable.No nausea or vomiting. No blood in her stools. No other symptoms. Medications Taking[1] Past Medical History[2] Surgical History[3] Family History[4] Social History[5] Allergies[6] Immunization History Administered Date(s) Administered Moderna SARS-CoV-2 Booster Vaccine 18+ Yrs (Light Blue Border) 06/11/2021 Moderna SARS-CoV-2 Vaccine 12+ Yrs (Light blue border) 07/26/2020, 08/24/2020 Patients medications and past medical, family and social histories were reviewed and updated. Therewere no changes except as noted. Review of System: The following systems were reviewed and revealed the following in addition to any already discussedin the HPI: Constitutional: no weight loss, fever, night sweats Eyes: negative for vision changes or deficits HENT: negative for ear pain, no sore throat, no neck pain Respiratory: no cough, shortness of breath, or wheezing Cardiovascular: negative for chest pain, swelling, dyspnea on exertion Gastrointestinal: See HPI. Genitourinary: negative for urinary urgency or pain during urination Musculoskeletal: negative for weakness or focal loss motor function Integumentary: negative for rashes or other skin lesions Hematology / Lymphatics: negative and there is no easy bleeding or bruising Endocrine: negative Allergy / Immunology: negative Neuro / Psych: negative Objective Objective: Vitals: 04/12/25 0929 BP: 124/68 BP Location: Left arm Patient Position: Sitting Pulse: 81 Resp: 17 Temp: 96.9 ??F (36.1 ??C) TempSrc: Forehead Weight: 130 lb 6.4 oz (59.1 kg) Height: 5' 5 (1.651 m) Body mass index is 21.7 kg/m??. Physical Exam: General: Noemi appears alert, well developed, well nourished, in no acute distress Skin: warm, well perfused and no rashes Head: Normocephalic, without obvious abnormality, atraumatic Eyes: Pupils equal, round and reactive to light and Extraocular movements intact ENT: ENT exam normal, mucous membranes moist Neck: neck is supple and there is full active range of motion Lungs: clear to auscultation bilaterally Cardiac: S1, S2 normal, no murmur, rub or gallop, regular rate and rhythm Abdomen: abdomen is soft, nontender, and nondistended without hepatosplenomegaly or masses, normoactive bowel sounds are present, there are no peritoneal signs Musculoskeletal/Ext: normal muscle bulk with no contractures or deformities Neurological: normal without focal findings, mental status, speech normal, alert and oriented x3, ROBERT and reflexes normal and symmetric Assessment and Plan: Diagnoses and all orders for this visit: Gastroesophageal reflux disease with esophagitis without hemorrhage - pantoprazole (PROTONIX) 40 mg Oral Tablet, Delayed Release (E.C.); Take 1 Tablet by mouth 2 timesdaily. Dispense: 60 Tablet; Refill: 5 - ESOPHAGOGASTRODUODENOSCOPY (EGD); Future This is a very nice 79-year-old female who presents for evaluation of GERD, voice changes. Her symptoms are persistent despite daily PPI. No previous EGD. Will schedule an EGD for further evaluation of her symptoms. Increase pantoprazole to twice daily and monitor response. Thank you very much for allowing me to participate in the care of your patient. If you have any questions and/or concerns please do not hesitate to call. No follow-ups on file. Henry Hutchison MD This note was dictated utilizing voice recognition software and this may lead to occasional typographical errors. [1] Outpatient Medications Marked as Taking for the 04/12/25 encounter (Office Visit) with Henry Hutchison MD Medication Sig Dispense Refill amLODIPine (NORVASC) 10 mg Oral Tablet Take 1 Tablet by mouth daily. aspirin 81 mg Oral tablet Take 1 Tablet by mouth daily. Hold until Thursday atorvastatin (LIPITOR) 20 mg Oral Tablet Take 20 mg by mouth daily. azelastine (ASTELIN) 137 mcg (0.1 %) [place], Non-Aerosol 2 SPRAYS IN EACH NOSTRIL 2 TIMES DAILYFOR 90 DAYS. USE IN EACH NOSTRIL DIRECTED 90 mL 3 ergocalciferol (VITAMIN D) 50,000 unit Oral Capsule TAKE 1 CAPSULE BY MOUTH ONE TIME A WEEK 5 Cap 11 estradiol (ESTRACE) 0.01 % (0.1 mg/gram) Vagl Cream Do not use Applicator. Apply pea-size amount with fingertip nightly x2 weeks, then apply 2-3 times per week thereafter 1 Tube 3 losartan (COZAAR) 100 mg Oral Tablet Take 1 Tablet by mouth daily. Restart olopatadine (PATANOL) 0.1 % ophthalmic solution Place 1 Drop into both eyes 2 times daily. Prn pantoprazole (PROTONIX) 40 mg Oral Tablet, Delayed Release (E.C.) Take 1 Tablet by mouth 2 times daily. 60 Tablet 5 [DISCONTINUED] pantoprazole (PROTONIX) 40 mg Oral Tablet, Delayed Release (E.C.) Take 40 mg by mouth daily. polyethylene glycol (GLYCOLAX, MIRALAX) 17 gram Oral Powder in Packet Take 17 g by mouth 2 times daily. 60 Packet 1 sulfamethoxazole-trimethoprim (BACTRIM DS) 800-160 mg Oral Tablet Take 1 Tablet by mouth 2 times daily. SYNTHROID 100 mcg Oral Tablet Take 100 mcg by mouth daily. (Patient taking differently: Take 88 mcgby mouth daily.) [2] Past Medical History: Diagnosis Date Anxiety Aortic valve regurgitation Arthritis knees Complication of anesthesia Diverticulosis Goiter Heart murmur mitral valve prolapse dx 2008, was having jaw pain, saw Dr. 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, [id number] Stage I Tricuspid valve regurgitation Urinary tract infection last one 07/05 Vitamin D deficiency 01/10/2014 [3] Past Surgical History: Procedure Laterality Date BREAST SURGERY biopsy CHOLECYSTECTOMY, LAPAROSCOPIC 06/05/2010 LAPAROSCOPIC CHOLECYSTECTOMY POSSIBLE OPEN - SCIP performed by DARCI HALL at [facility] OR COLPOPEXY N/A 07/19/2019 Robotic Sacrocolpopexy, Placement of Transobturator Urethral Mesh Sling, Posterior Repair, Cystoscopy ; Surgeon: Hanna Iglesias MD; Location: [facility]; Service: Robotics CYSTOCELE REPAIR N/A 07/19/2019 Surgeon: Hanna Iglesias MD; Location: [facility] OR; Service: Robotics CYSTOSCOPY N/A 07/19/2019 Surgeon: Hanna Iglesias MD; Location: [facility]; Service: Robotics HYSTERECTOMY OVARY REMOVAL THYROIDECTOMY Bilateral 10/20/2013 RIGHT THYROID LOBECTOMY with isthmusectomy; Surgeon: Carlos Sanders MD; Location: [facility] OR; Service: ENT THYROIDECTOMY N/A 11/17/2013 COMPLETION THYROIDECTOMY; Surgeon: Carlos Sanders MD; Location: [facility]; Service: ENT TONSILLECTOMY URETHROPEXY N/A 07/19/2019 Surgeon: Hanna Iglesias MD; Location: [facility]; Service: Robotics [4] Family History Problem Relation Age of Onset Cancer Father Lung Cancer Father Diabetes Brother Heart Disease Brother Heart Attack Brother High Blood Pressure Brother Kidney Disease Brother Dementia Mother Depression Mother [5] Social History Tobacco Use Smoking status: Never Smokeless tobacco: Never Vaping Use Vaping status: Never Used Substance Use Topics Alcohol use: Yes Comment: rare Drug use: No [6] Allergies Allergen Reactions Bacitracin Other (See Comments) Ciprofloxacin Hcl Other (See Comments) Nickel Swelling Allergic to metals Polysporin [Bacitracin-Polymyxin B] Swelling Any sporins Venom-Honey Bee Swelling Demerol [Meperidine] Other (See Comments) Pt states eyes turned green documented in this encounter Miscellaneous Notes * Patient Instructions - Henry Hutchison MD - 04/12/2025 9:30 AM EDT Patient Name: Noemi Huffman Procedure: Physician: Location: Date: Arrival Time: Procedure Time: Please have nothing by mouth after on (including gum, mints, nicotine or tobacco products) Doing so can delay or cancel your procedure. EGD Preparation Please read the entire pre instructions at least one week before your procedure. If you have any questions, please call our office: Office Number: [phone] Procedure [phone] between 8 AM and 4:30 PM Ambulatory Surgery Center: [phone] between 6 AM and 2:30 PM Please note that not following these instructions may result in cancellation/rescheduling of the procedure. Please contact the office if there have been any changes in your medical condition from thetime you had scheduled your procedure to the date of your procedure (including but not limited to heart attack, stroke or beginning taking blood thinning medication). Not doing so may result in cancellation of your procedure. If you are unable to keep your appointment, please provide at least 72-hours notice. Not doing so will result in a $100 cancellation/no show fee. If you have had an upper respiratory infection (i.e. sinus infection, Covid-19, Flu A or B, bronchitis) within 14 days of your procedure, please call to reschedule. Not doing so may result in a cancellation the day of the procedure. To cancel you may call our CANCELLATION LINE at [phone] and leave a message. You may also call [phone] to speak with Procedure Scheduling. Your safety is our primary concern. Please arrange a responsible adult (age 18 or over) to drive you to our facility, stay at our facility during your procedure, and to drive you home when you are discharged. Please note that if your responsible republican is not able to remain on the facility property during the procedure, your procedure will not be able to be performed. Patients will not be admittedunless there is a responsible adult present. Please anticipate remaining at our facility for 2-4 hours. You are to have a responsible adult with you until the effects of the sedation have worn off, which may take several hours. Patients will not be permitted to go home by taxi/Uber/Lyft unless a res ponsible adult is with them. If you have a Port-A-Cath that you would like us to use for your procedure, it is our policy that the Port-A-Cath must be flushed within 30 days of your procedure, or we will not be able to access the port. 5-7 or more days prior to the procedure: Arrange for a responsible republican (18 or over). If you do not have a responsible republican, we will cancel the procedure. Please remember that by law, you cannot drive the rest of the day after your procedure. Read and familiarize yourself with the preparation instructions below. Please call [phone] with any questions regarding instructions. Please note if you take the medication Phentermine (i.e. Adipex, Veronica-Cap, Suprenz, T-diet, Zantryl,Lomaira) you will need to stop this medication 7 full days prior to your procedure. Not doing so may result in a cancellation the day of your procedure. This is up to your physicians discretion. If you are taking medications for weight loss/diabetes, oral or injectables, you will need to hold them for 8 full days prior to your procedure date. These include but are not limited to GLP-1, semaglutides and dulaglutides (i.e. Trulicity, Ozempic, Wegovy, Rybelsus, etc.), and Contrave. Not doing so may result in a cancellation the day of your procedure. If you have any questions about these medications, please reach out to the office. This is up to your physicians discretion. Review and plan dietary needs during prep time. Please avoid nuts, seeds or berries with seeds the entire week leading up to your procedure. IF your procedure is scheduled for [facility], they have additional recommendations for medication holds. Please follow the additional medication holds below. Otherwise, please follow the instructions thoroughly. 4 days prior to your procedure, hold steglatro 3 days prior to your procedure, hold Jardiance, Invokana, and Farxiga Do NOT take your WANDA inhibitors (ends in PRIL) or angiotensin receptor blockers (ends in SARTAN) onthe day of your procedure. IF YOU TAKE BLOOD THINNING MEDICATION: We are verifying with the ordering provider that you may hold your blood thinner. Please wait until you hear from us before stopping your medication. The scheduling department will call you to confirm once we have received the clearance from the ordering provider. After that has been completed: Take your last dose of on . (You will be instructed when to resume your blood thinner following your procedure. On the day of your procedure: You can have solid food up to 8 hours prior to your procedure. At 8 hours prior to your procedure, please start a clear liquid diet. Examples of clear liquids: coffee or tea (NO milk, creamer, or sugar/sweeteners) Dietary Supplements: Boost or Ensure, any flavor except chocolate or strawberry. No supplement after midnight. Plain Jell-O/Popsicles (NO red or purple). Clear soups and/or broth (strain all vegetables and noodles). Clear fruit juice (i.e. apple or white grape juice, NO orange or grapefruit juice). Sorbet that does NOT contain milk or chunks of fruit. Soft drinks / Cathy Vesna / Gatorade (NO red or purple). NO milk, added sugar, grapefruit juice, tomato juice. Do NOT drink alcohol. STOP drinking 3 hours prior to your arrival time. Your arrival time is not your procedure time. Youare asked to arrive early to allow time for registration and preparation. TAKE your heart and blood pressure medications the morning of the procedure. TAKE your seizure medications the morning of the procedure. Do NOT take your blood thinner. If you are diabetic: Do not take your oral medication today. Take ?? of long-acting insulin Hold regular insulin Bring a dose of regular insulin to the procedure with you. Refrain from ALL nicotine and tobacco products, as well as THC products the day of your procedure. If you wear dentures, avoid using adhesive the day of the procedure as the dentures may be removed for the procedure. If you use an inhaler, please bring it with you on the day of your procedure. Be advised that ALL premenopausal women will be required to provide a urine specimen for testing prior to the procedure. Please wear loose fitting, comfortable clothing, and low-heeled shoes. We recommend a short sleeve shirt, to make starting your IV easier. If you wear glasses, these will be removed before your procedure. A basin will be provided, but youmay bring a case if you would like. Please leave your valuables at home; we are not responsible for broken or lost items. Please note that every procedure experience is different and this one may not be the same as your experience with other procedures. IMPORTANT You will be asked to acknowledge receipt of this information on the day of your procedure. Please bring the following on the day of your procedure: This pamphlet and your prep instructions ALL of your Medical Insurance Cards Your drivers license with picture ID A copy of your Power of Family And Consumer Science Professor (POA if necessary) If applicable: your inhaler; contact lens container and solution (if you need to remove them); glasses case; hearing aid(s) and container to put them in, if removed; any medication you have started or changed since your last contact with the endoscopy center A Responsible Adult (age 18 or older) to stay here at the facility during your visit as well as someone to drive you home if not your Responsible Adult Bring or wear socks for your own comfort About the facility: Patient entrance is under the lower-level canopy. There is not an entry from the upper-level to thelower level. The facility doors open at 6:15 AM M-F Wi-Fi and a television are present in the waiting area. Please be advised no photography or video recording may take place in the patient care areas. We are a NON-SMOKING campus (inside and outside the facility) After the Procedure: You should expect to be in the Recovery Area 30-45 minutes. You will be seen by your physician prior to discharge. Your Responsible Adult will be brought to the Recovery Area (unless you request not to have them with you) prior to discussing the results of your procedure and giving instructions. You may eat whatever you want after discharge unless your doctor has ordered otherwise. Due to the sedation, we prefer that you do not go into a restaurant. Sedation may cause you to feel drowsy and unsteady. You should review your Post Procedure Instructions once you are fully awake. You should be able to return to your normal activity the day after your procedure. You should receive a call from our staff the next business day. If you are NOT experiencing problems, you DO NOT have to return this call. If you are having problems or questions, please call [phone] or in the event of an emergency call [phone]. Advance directives This serves as your notice that this facility does not honor ???Do Not Resuscitate?? (DNR) directive in an advanced directive. If you do not agree with this policy, let us know and you may be scheduled at another location. WELCOME TO ENDOSCOPY CENTER Physician Ownership Disclosure: [facility] [place], [facility] is owned and operated by [facility], therefore, your physician may have a financial interest in this facility. Insurance: If you have insurance coverage, your insurance company will receive two separate claims. One for the physicians which will also include a charge for any biopsies or specimens collected and one for the Facility fee. Your insurance company may also receive claims from independent laboratory, anesthesia, and pathology. As with your insurance company, you may receive bills for any remaining balance and /or outpatient deductibles and co-pays, resulting from the facility fee, physicians fee, an independent laboratory, anesthesia and pathology. Procedures available: [facility] performs procedures, such as: EGD Esophageal Dilation Colonoscopy Flexible Sigmoidoscopy Small Bowel Enteroscopy Liver Biopsy Gastronomy tube replacement Hemorrhoid banding EUS (Endoscopic Ultrasound) Endoscopic capsule placement Licensure and accreditation: [facility] is licensed by the [facility] as an [facility] (ASC) and is accredited by the Accreditation Association for Ambulatory Healthcare (AAAHC). We are also certified by the centers for Medicare and Medicaid Services (CMS) as a participant in a Medicare program. [facility] was recognized by the [place] [employer] G[employer] Endoscopy (ASGE) for promoting quality in endoscopy. Physician credentials: All physicians providing care at [facility] are board eligible or board certified by the certifying board of gastroenterology and approved and credentialed by the governing board of [facility]. Summary of Patient rights - further information available at facility To be considerate, respectful, and receive quality care To be informed of all available services and to receive the services regardless of age, race, latter day, sex, sexual orientation, marital status, or national origin To obtain complete and current medical information, including explanation of treatment and prognosis in terms that can reasonably be understood To receive from his/her physician, the information necessary to give informed consent prior to any procedure To have the right to change providers if other qualified providers are available To expect that within its capacity, the facility must make a reasonable response to the request up health system To obtain information as to any relationship of this Facility to any other healthcare institution To refuse treatment and be informed of the consequences of this refusal To privacy concerning his or her medical treatment To refuse to participate in experimental research To receive an itemized copy of his or her account statement upon request regardless of source of payment To approve or refuse the release or disclosure of the contents of his or her medical record To know which Facility rules and regulations apply to his or her conduct To express complaints about the care and services provided, voice grievances and recommend changes in policies and services to the center's staff or nurse medical billing manager, please call [phone] without fear of reprisal. Patients will receive follow up via phone or written communication. Patients may also contact the [place] Board of Medical Licensure or visit: [email or web address].gov/[email or web address]/activities.[email or web address]. Patients may also contact the [facility] [employer] at [phone] or submit in grievance in writing to: [facility] [employer] - [address], [address] - [place] [id number] Patient responsibilities: Provide information regarding health history including but not limited to: medications (including over the counter and diet supplements, allergies and sensitivities) and update changes as they occur.If any changes in your medical status arise between the time of scheduling the procedure and the procedure date, we ask that you notify our office. Show consideration to others by being respectful to our healthcare professionals, staff, and other patients Cooperate with their physicians and the facility staff, following policies and procedures Understand and follow the course of treatment directed and participate in care. Inform staff how they feel and their needs Discuss additional consultation Provide the facility with complete and updated insurance and financial information To provide a responsible adult (aged 18 or older) to accompany them home after sedation To be responsible for keeping appointments and notifying if unable to do so documented in this encounter Plan of Treatment Upcoming Encounters Date Type Department Care Team (Late st Contact Info) Description 06/01/2025 2:00 PM EST Appointment [facility] [address] [place] [address] Henry Hutchison MD [address] [place] [address] 11/10/2025 1:30 PM EDT [place] [address] Stephon Galan MD [address] [place] [address] Scheduled Orders Name Type Priority Associated Diagnoses Order Schedule ESOPHAGOGASTRODUODENOSCOPY (EGD) Endoscopy Routine Gastroesophageal reflux disease with esophagitis without hemorrhage 1 Occurrences starting 04/12/2025 until 04/12/2026 documented as of this encounter Visit Diagnoses Diagnosis Gastroesophageal reflux disease with esophagitis without hemorrhage- Primary documented in this encounter Discontinued Medications Medication Sig Discontinue Reason Start Date End Da te famotidine (PEPCID) 40 mg Oral Tablet Take 40 mg by mouth. Patient Reported not taking medication 10/29/2023 04/12/2025 pantoprazole (PROTONIX) 40 mg Oral Tablet, Delayed Release (E.C.) Take 40 mg by mouth daily. Reorder 11/06/2024 04/12/2025 documented as of this encounter Care Teams Lead Game Designer Relationship Specialty Start Date End Date Kyaw Shook MD [address] [facility] [address] [place] [id number] PCP - General Family Medicine 07/12/19 Robert Ramos MD [address] [place] [address] [place] [address] Physician Internal Medicine-Cardiovascular Disease 03/26/12 Janina Montes MD [address] [facility] [address] [place] [address] Internal Medicine-Endocrinology, Diabetes & Metabolism 01/10/14 documented as of this encounter
[2025-05-11 18:56] LABS: Hematocrit 41.7 % (37.0-47.0); Hemoglobin 13.7 g/dL (12.2-16.2); Immature Granulocytes % 0.3 %; Mean Corpuscular HGB Conc 32.9 g/dL (31.8-35.4); Mean Corpuscular Hemoglobin 28.7 pg (27.0-31.2); Mean Corpuscular Volume 87.4 fl (81-99); Nucleated Red Blood Cells % 0 %; Platelet Count 375 K/mm3 (142-424); Red Blood Count 4.77 M/mm3 (4.20-5.40); Red Cell Distribution Width-SD 42.8 fL; White Blood Count 7.3 K/mm3 (4.8-10.8)
[2025-05-11 19:24] LABS: Albumin Level 4.7 g/dl (3.5-5.0); Chloride 104 mmol/L (98-107); Potassium 3.8 mmoL/L (3.5-5.1); Sodium 144 mmol/L (136-145)
[2025-05-11 19:26] LABS: Blood Urea Nitrogen 17 mg/dl (7-17); Creatinine,Serum 0.70 mg/dl (0.52-1.04); Estimated Glomerular Filt Rate 81 ml/min (>60); GFR (African American) 98 ML/MIN (>60)
[2025-05-11 19:27] LABS: Alanine Aminotransferase 24 U/L (12-78); Albumin/Globulin Ratio 1.9 (1.1-1.8); Alkaline Phosphatase 85 U/L (38-126); Anion Gap 18.8 mEq/L (5-15); Aspartate Amino Transferase 35 U/L (14-36); Bilirubin,Total 0.5 mg/dl (0.2-1.3); Calcium 9.3 mg/dl (8.4-10.2); Carbon Dioxide 25 mmol/L (22.0-30.0); Cholesterol 155 mg/dl (140-200); Globulin 2.5 g/dL (1.3-3.2); Glucose 88 mg/dl (74-100); Iron 95 ug/dL (37-170); Total Protein,Serum 7.2 g/dl (6.3-8.2); Triglycerides 58 mg/dl (30-150)
[2025-05-11 19:28] LABS: HDL Cholesterol 93 mg/dl (40-60)
[2025-05-11 19:38] LABS: Total Iron Binding Capacity 368 ug/dL (265-497)
[2025-05-11 19:46] LABS: 25-OH Vitamin D, Total 71.1 ng/mL (30-100)
[2025-05-11 19:59] LABS: Thyroid Stimulating Hormone 5.94 uIU/mL (0.465-4.68)
[2025-05-11 20:03] LABS: Ferritin 23.8 ng/ml (11.1-264)
[2025-05-11 21:06] LABS: Vitamin B12 759 pg/mL (239-931)
--- OUTSIDE RECORDS SUMMARY | 2025-05-12 10:49 | XMS_ITS | Encounter Summary ---
Author Organization [facility] Address [address] [facility] [address] [place] [address] Care Team Providers Care Printed Circuit Boards Pinner Name Role Phone Robert Ramos MD Unavailable [phone] Janina Montes MD Unavailable [phone] Kyaw Shook MD Primary Care Provider Reason for Visit * Reason Comments Medication Refill Encounter Details Date Type Department Care Team (Late st Contact Info) Description 03/11/[address] [facility] [address] [facility] [address] [place] [address] Zehra Colon PA-C [address] [facility] [address] [place] [address] Medication Refill Social History Tobacco Use Types Packs/Day Years Used Date Smoking Tobacco: Never Smokeless Tobacco: Never Alcohol Use Standard Drinks/Week Comments Yes 0 (1 standard drink = 0.6 oz pur e alcohol) rare [facility] Utilities Answer Date Recorded In the [...] Date Recorded PHQ-2 Total Score 0 09/07/2023 [facility] [place] [facility] - Occupational Stress [...] money to get more. Never true 09/07/2023 [facility] IP Transportation Answer D ate Recorded [...] azelastine (ASTELIN) 137 mcg (0.1 %) Nasl [place], Non-AerosolIndicat ions:Nasal congestion,Post-na aparna drip,Acute recurrent sinusitis, unspecified location 2 SPRAYS IN EACH NOSTRIL 2 TIMES DAILY FOR 90 DAYS. USE IN EACH NOSTRIL DIRECTED 90 mL 3 03/13/2025 documented in this encounter Miscellaneous Notes * Telephone Encounter - Belén Christensen CMA - 03/13/2025 3:00 PM EDT Pharm refill request. TAMERA 09-13- documented in this encounter Plan of Treatment Upcoming Encounters Date Type Department Care Team (Late st Contact Info) Description 06/01/2025 2:00 PM EST Appointment [facility] [address] [place] [address] Henry Hutchison MD [address] [place] [address] 11/10/2025 1:30 PM EDT Office Visit [facility] [address] [address] Stephon Galan MD [address] [place] [address] [address] [place] [address] documented as of this encounter Visit Diagnoses Diagnosis Nasal congestion Other diseases of nasal cavity and sinuses Post-nasal drip Postnasal drip Acute recurrent sinusitis, unspecified location documented in this encounter Discontinued Medications Medication Sig Discontinue Reason Start Date End Da te azelastine (ASTELIN) 137 mcg (0.1 %) Nasl [place], Non-AerosolIndications:N patrick congestion,Post-nasal drip,Acute recurrent sinusitis, unspecified location 2 Sprays in each nostril 2 times daily for 90 days. Use in each nostril as directed 10/06/2024 03/13/2025 documented as of this encounter Care Teams Printed Circuit Boards Pinner Relationship Specialty Start Date End Date Kyaw Shook MD [address] [address] PCP - General Family Medicine 07/12/19 Robert Ramos MD [address] [place] [address] [place] [address] Physician Internal Medicine-Cardiovascular Disease 03/26/12 Janina Montes MD [address] [phone] Internal Medicine-Endocrinology, Diabetes & Metabolism 01/10/14 documented as of this encounter
--- OUTSIDE RECORDS SUMMARY | 2025-05-12 10:49 | XMS_ITS | Encounter Summary ---
Author Organization [place] [address] Care Team Providers Care Ortho/Prosthetic Aide Name Role Phone Robert Ramos MD Unavailable [phone] Janina Montes MD Unavailable [phone] Kyaw Shook MD Primary Care Provider Encounter Details Date Type Department Care Team (Late st Contact Info) Description 04/07/2025 Results Follow-Up [facility] [place] [address] [place] [address] Colette Machado, LEISURE TRAVEL AGENT [address] [place] [address] [facility] CAROTID DUPLEX BILATERAL Social History Tobacco Use Types Packs/Day Years Used Date Smoking Tobacco: Never Smokeless Tobacco: Never Alcohol Use Standard Drinks/Week Comments Yes 0 (1 standard drink = 0.6 oz pur e alcohol) rare C Utilities Answer Date Recorded In the past 12 months has [employer] electric, gas, oil, or water company threatened [...] Date Recorded PHQ-2 Total Score 0 09/07/2023 [facility] - Occupational Stress Questionnaire Answer Date Recorded [...] money to get more. Never true 09/07/2023 [facility] IP Transportation Answer D ate [...] Crystal Marrufo RN documented in this encounter Plan of Treatment Upcoming Encounters Date Type Department Care Team (Late st Contact Info) Description 06/01/2025 2:00 PM EST Appointment [facility] [address] [place] [address] Henry Hutchison MD [address] [place] [address] 11/10/2025 1:30 PM EDT [place] [address] Stephon Galan MD [address] [place] [address] Scheduled Orders Name Type Priority Associated Diagnoses Orde r Schedule LIPID PANEL REFLEX Lab Routine Other hyperlipidemia 1 Occurrences starting 04/07/2025 until 04/07/2026 HEPATIC FUNCTION PANEL Lab Routine Other hyperlipidemia 1 Occurrences starting 04/07/2025 until 04/07/2026 documented as of this encounter Visit Diagnoses Diagnosis Other hyperlipidemia- Primary documented in this encounter Care Teams Ortho/Prosthetic Aide Relationship Specialty Start Date End Date Kyaw Shook MD [address] [address] PCP - General Family Medicine 07/12/19 Robert Ramos MD [address] [facility] [place] [address] Physician Internal Medicine-Cardiovascular Disease 03/26/12 Janina Montes MD [address] [address] Internal Medicine-Endocrinology, Diabetes & Metabolism 01/10/14 documented as of this encounter
--- OUTSIDE RECORDS SUMMARY | 2025-05-12 10:50 | XMS_ITS | Clinical Summary ---
Author Organization [facility] Address [address] [place] [address] Care Team Providers Care Tanning Drum Operator Name Role Phone Kyaw Shook MD Primary Care Provider [phone] Allergies Active Allergy Reactions Criticality Noted Date [...] Planning 06/22/2024 Depression Screening 06/22/2024 COVID-19 Vaccine (1 - 2024- season) 2025 Influenza Vaccination (#1) 2025 Care Teams Tanning Drum Operator Relationship Specialty Start Date End Date Kyaw Shook MD PCP - General Family Medicine 08/30/13
--- OUTSIDE RECORDS SUMMARY | 2025-05-12 10:50 | XMS_ITS | Continuity of Care Document ---
Author Organization [facility] MV1 [address], [address] [place] [address] Care Team Providers Care Boiler House Supervisor Name Role Phone Zbigniew Ramos MD Unavailable [phone] Janina Montes MD Unavailable [phone] Kyaw Shook MD Primary Care Provider Encounters Date Type Department Care Team Description 04/12/2025 9:30 AM EDT Office Visit [facility] [address] [place] [address] Henry Hutchison MD Gastroesophageal reflux disease with esophagitis without hemorrhage (Primary Dx) 04/07/2025 Results Follow-Up [facility] [place] [address] [id number] Colette Machado APRN [employer] CAROTID DUPLEX BILATERAL 04/06/2025 9:29 AM EDT - 04/06/2025 11:59 PM EDT Hospital Encounter [facility] VASCULAR LAB [facility] [place] [address] Stephon Galan MD Nonrheumatic aortic valve insufficiency; Bruit of right carotid artery; Right carotid bruit Discharge Disposition: Home or Self Care 03/22/2025 2:21 PM EDT - 03/22/2025 11:59 PM EDT Hospital Encounter [facility] Mamm[facility] [address] [place] [address] Kyaw Shook MD Encounter for screening mammogram for malignant neoplasm of breast Discharge Disposition: Home or Self Care 03/11/[address] [facility] [address] [facility] [address] [place] [address] Zehra Colon PA-C Medication Refill 01/24/2025 Telephone [facility] [address] [address] Stephon Galan MD Medication Refill; Patient Question 11/09/2024 1:10 PM EDT Office Visit [facility] [address] [address] Stephon Galan MD Nonrheumatic aortic valve insufficiency (Primary Dx); Bruit of right carotid artery; Right carotid bruit 10/24/2024 Telephone [facility] [address] [facility] [address] [place] [address] Zehra Colon PA-C Results 10/21/2024 12:28 PM EDT - 10/21/2024 11:59 PM EDT Hospital Encounter [facility] [place] [address] Zehra Colon PA-C Nasal congestion; Acute recurrent sinusitis, unspecified location Discharge Disposition: Home or Self Care 10/06/2024 [facility] [address] [facility] [address] [place] [address] Zehra Colon PA-C Medication Refill 09/13/2024 9:15 AM EDT Office Visit [facility] [address] [place] [address] Zehra Colon PA-C Acute recurrent sinusitis, unspecified location (Primary Dx); Abnormal auditory perception of both ears; Tinnitus, bilateral; H/O malignant neoplasm of thyroid; H/O total thyroidectomy; Nasal congestion; Post-nasal drip; Sensory hearing loss, bilateral 08/31/2024 11:49 AM EDT - 08/31/2024 11:59 PM EDT Hospital Encounter [facility] [address] [facility] [address] [place] [address] Stephon Galan MD Nonrheumatic aortic valve insufficiency; Gastrointestinal hemorrhage, unspecified gastrointestinal hemorrhage type Discharge Disposition: Home or Self Care 02/11/2024 2:30 PM EDT Office Visit [facility] [address] [address] Stephon Galan MD Nonrheumatic aortic valve insufficiency (Primary Dx); Gastrointestinal hemorrhage, unspecified gastrointestinal hemorrhage type 12/28/2023 9:45 AM EDT Office Visit [facility] [address] [address] Lina Sousa PA-C Biceps tendinitis of left upper extremity (Primary Dx); Subacromial bursitis of left shoulder joint 11/12/2023 9:30 AM EDT Office Visit [facility] [address] [address] Hal Marcelo DO Biceps tendinitis of left upper extremity (Primary Dx); Subacromial bursitis of left shoulder joint 11/11/2023 11:15 AM EDT - 11/11/2023 11:59 PM EDT Hospital Encounter [facility] [address] [place] [address] Kyaw Shook MD Screening mammogram for breast cancer Discharge Disposition: Home or Self Care 11/05/2023 10:00 AM EDT Ancillary Procedure [facility] [address] [address] Kayleigh Mason PA-C Acute pain of left shoulder 11/05/2023 9:45 AM EDT Office Visit [facility] [address] [place] [address] Kayleigh Mason PA-C Chronic left shoulder pain (Primary Dx) 09/08/2023 10:12 AM EDT Anesthesia Event [facility] ENDOSCOPY [facility] [address] [place] [address] Zechariah Reddy MD Wilson, Christine E, RESIDENCE SUPERVISOR 09/06/2023 3:47 PM EDT - 09/08/2023 2:58 PM EDT Hospital Encounter [facility] 2A [facility] [address] [place] [address] Eduardo Hardy MD Jarkani, Ashok P, MD Gastrointestinal hemorrhage, unspecified gastrointestinal hemorrhage type (Primary Dx) Discharge Disposition: Home or Self Care 09/06/2023 Travel 07/17/2023 6:22 AM EST - 07/17/2023 11:59 PM EST Hospital Encounter [place] [facility] [place] [address] Kyaw Shook MD Intra-abdominal and pelvic swelling, mass and lump, unspecified site; Family history of aortic aneurysm; History of thyroid cancer; Gastroesophageal reflux disease, unspecified whether esophagitis present Discharge Disposition: Home or Self Care 04/09/2023 3:20 PM EDT Office Visit [facility] [place] [address] [place] [address] Stephon Galan MD Nonrheumatic aortic valve insufficiency (Primary Dx); Mitral valve prolapse; Tricuspid valve insufficiency, unspecified etiology 02/20/2023 Telephone [facility] [place] [address] [place] [address] Stephon Galan MD Reschedule 02/20/2023 11:05 AM EDT - 02/20/2023 11:59 PM EDT Hospital Encounter EDG ECHO [facility] [place] [address] Stephon Galan MD Encounter to establish care; Heart murmur; Right carotid bruit Discharge Disposition: Home or Self Care 02/20/2023 9:54 AM EDT - 02/20/2023 11:04 AM EDT Hospital Encounter [facility] VASCULAR LAB [facility] [place] [address] Stephon Galan MD Encounter to establish care; Heart murmur; Right carotid bruit Discharge Disposition: Home or Self Care 02/02/2023 12:50 PM EDT Ancillary Procedure [facility] [place] [address] [place] [address] Emma Kennedy APRN Left foot pain Discharge Disposition: Home or Self Care 02/02/2023 12:15 PM EDT Office Visit [facility] [place] [address] [place] [address] Emma Kennedy APRN Left foot pain (Primary Dx); Contusion of left foot, initial encounter 01/08/2023 2:00 PM EDT Office Visit [facility] [address] [phone] Stephon Galan MD Encounter to establish care (Primary Dx); Heart murmur; Right carotid bruit; Nonrheumatic aortic valve insufficiency; Mitral valve prolapse 09/23/2021 9:24 AM EDT - 09/23/2021 11:59 PM EDT Hospital Encounter [facility] [address] [address] Regular check-up (Primary Dx) Discharge Disposition: Home or Self Care 09/13/2020 9:15 AM EDT - 09/13/2020 11:59 PM EDT Hospital Encounter [facility] [address] [address] Essential hypertension (Primary Dx) Discharge Disposition: Home or Self Care 09/13/2020 Travel 02/07/2020 Travel 02/07/2020 11:00 AM EDT Office Visit [facility] [address] [phone] Kellee Lara APRN Postoperative visit (Primary Dx); Visit for pelvic exam; History of vaginal surgery; Vaginal atrophy; Granulation tissue at vaginal vault; Other constipation 09/02/2019 Telephone [facility] [address] [phone] Christa Cunha LPN Results (urine culture ) 08/30/2019 11:30 AM EDT Office Visit [facility] [address] [address] Kellee Lara APRN Urinary frequency (Primary Dx); Postoperative visit; Overactive bladder; Recurrent UTI; Vaginal atrophy 08/02/2019 Travel 08/02/2019 1:30 PM EST Office Visit [facility] [address] [phone] Kellee Lara APRN Postoperative visit (Primary Dx); BV (bacterial vaginosis) 07/21/2019 Telephone [facility] [address] [phone] Martha Shaffer LPN Post-op Call 07/19/2019 6:01 AM EST - 07/20/2019 11:49 AM EST Hospital Encounter [facility] [address] [place] [address] Hanna Iglesias MD Rectocele; Overactive bladder; Incomplete bladder emptying; Cystocele, midline; Stress incontinence; Rectocele; Overactive bladder; Incomplete bladder emptying; Cystocele, midline; Stress incontinence; Atrophy of vagina Discharge Disposition: Home or Self Care 07/19/2019 Travel 07/19/2019 7:30 AM EST - 07/19/2019 12:00 PM EST Surgery [facility] [address] [place] [address] Hanna Iglesias MD [facility] ROBOTIC SACRAL COLPOPEXY 07/19/2019 7:30 AM EST Anesthesia Event [facility] [address] [place] [address] Mendel Brice MD Merkle Serey, Jennifer L, NP 07/18/2019 Travel 07/18/2019 10:39 AM EST - 07/18/2019 11:59 PM EST Hospital Encounter [facility] PRE-ADMIT TESTING [address] [facility] [place] [address] Pat, Ftt Preop testing (Primary Dx); Overactive bladder Discharge Disposition: Home or Self Care 07/12/2019 Orders Only [facility] [address] [address] Martha Shaffer LPN Rectocele (Primary Dx); Overactive bladder; Incomplete bladder emptying; Cystocele, midline; Stress incontinence; Atrophy of vagina 07/12/2019 Telephone [facility] [address] [address] Martha Shaffer LPN Pre-op Exam 04/19/2019 Telephone [facility] [address] [phone] Martha Shaffer LPN Procedure 04/15/2019 12:00 PM EDT Office Visit [facility] [address] [address] Hanna Iglesias MD Cystocele, midline (Primary Dx); Rectocele; Overactive bladder; Incomplete bladder emptying; Atrophy of vagina; Stress incontinence 03/23/2019 3:30 PM EDT Procedure visit [facility] [address] Kellee Lara, RESIDENCE SUPERVISOR Female genital prolapse, unspecified type (Primary Dx); LYNDON (stress urinary incontinence, female); OAB (overactive bladder); Urinary frequency 02/22/2019 Telephone [facility] [address] [address] Gracy Holder CMA Medication Refill 02/22/2019 Telephone [facility] [address] Sharee Shrestha MA Results 02/18/2019 9:30 AM EDT Office Visit [facility] [address] [address] Hanna Iglesias MD Urinary frequency (Primary Dx); Recurrent UTI; Rectocele; Cystocele, midline; Incomplete bladder emptying; Atrophy of vagina 03/04/2018 9:45 AM EDT - 03/04/2018 11:59 PM EDT Hospital Encounter [place] [place] [address] Kyaw Shook MD Encounter for screening for malignant neoplasm of breast Discharge Disposition: Home or Self Care 03/04/2018 9:05 AM EDT - 03/04/2018 9:44 AM EDT Hospital Encounter [place] DEXA [facility] [place] [address] Kyaw Shook MD Postmenopausal status Discharge Disposition: Home or Self Care 10/15/2015 Telephone [facility] [address] [facility] [address] [place] [phone] Janina Montes MD Cancellation 04/23/2015 Telephone [facility] [address] [place] [address] Janina Montes MD Orders 04/13/2015 11:00 AM EDT Office Visit [facility] [address] [employer] [facility] [address] [place] [address] Janina Montes MD Thyroid cancer (HCC) (Primary Dx); Post-surgical hypothyroidism; Subclinical hyperthyroidism, iatrogenic; Osteopenia; Vitamin D deficiency 04/11/2015 4:15 PM EDT - 04/11/2015 11:59 PM EDT Hospital Encounter [facility] [address] [place] [address] Post-surgical hypothyroidism; Vitamin D deficiency Discharge Disposition: Home or Self Care 04/11/2015 Telephone [facility] [address] [place] [address] Jainna Montes MD Reschedule 04/10/2015 Telephone [facility] [address] [place] [phone] Janina Montes MD Labs Only 01/21/2015 Refill [facility] [address] [place] [address] Janina Montes MD Medication Refill 01/04/2015 Refill [facility] [address] [place] [address] Janina Montes MD Medication Refill 10/03/2014 10:40 AM EDT Office Visit [facility] [address] [place] [phone] Janina Montes MD Thyroid cancer (HCC) (Primary Dx); Post-surgical hypothyroidism; Subclinical hyperthyroidism, iatrogenic; Vitamin D deficiency; Osteopenia 09/26/2014 10:10 AM EDT - 09/26/2014 11:59 PM EDT Hospital Encounter [facility] [place] [address] Janina Montes MD Thyroid cancer (HCC) Discharge Disposition: Home or Self Care 09/26/2014 Telephone [facility] [address] [employer] [facility] [address] [place] [address] Janina Montes MD Lab Orders 09/26/2014 9:35 AM EDT - 09/26/2014 10:09 AM EDT Hospital Encounter [facility] LABORATORY [facility] [place] [address] Thyroid cancer (HCC); Post-surgical hypothyroidism Discharge Disposition: Home or Self Care 04/17/2014 2:20 PM EDT Office Visit [facility] [address] [place] [phone] Janina Montes MD Thyroid cancer (HCC) (Primary Dx); Post-surgical hypothyroidism; Osteopenia; Vitamin D deficiency 04/12/2014 11:20 AM EDT - 04/12/2014 11:59 PM EDT Hospital Encounter [facility] LABORATORY [facility] [address] [place] [address] Post-surgical hypothyroidism (Primary Dx); Vitamin D deficiency Discharge Disposition: Home or Self Care 01/10/2014 2:10 PM EDT Office Visit [facility] [address] [address] Janina Montes MD Thyroid cancer (HCC) (Primary Dx); Post-surgical hypothyroidism; Osteopenia; Vitamin D deficiency 01/04/2014 11:20 AM EDT - 01/04/2014 11:59 PM EDT Hospital Encounter [facility] LABORATORY [facility] [address] [place] [address] Thyroid cancer (HCC) (Primary Dx); Post-surgical hypothyroidism; Osteopenia Discharge Disposition: Home or Self Care 12/13/2013 3:00 PM EDT Office Visit [facility] [address] [address] Janina Montes MD Thyroid cancer (HCC) (Primary Dx); Post-surgical hypothyroidism; Osteopenia 11/24/2013 11:10 AM EDT - 11/24/2013 11:59 PM EDT Hospital Encounter ED[facility] [address] [place] [address] Hypocalcemia (Primary Dx) Discharge Disposition: Home or Self Care 11/17/2013 8:00 AM EDT - 11/17/2013 11:30 AM EDT Surgery EDG PERIOP [facility] [address] [place] [address] Carlos Sanders MD THYROIDECTOMY 11/17/2013 6:56 AM EDT - 11/17/2013 4:39 PM EDT Hospital Encounter EDG SAME DAY SURGERY [facility] [address] [place] [address] Carlos Sanders MD Thyroid cancer (HCC) (Primary Dx) Discharge Disposition: Home or Self Care 10/20/2013 8:30 AM EDT - 10/20/2013 11:30 AM EDT Surgery [facility] PERIOP [facility] [place] [address] Carlos Sanders MD THYROIDECTOMY 10/20/2013 6:39 AM EDT - 10/20/2013 4:44 PM EDT Hospital Encounter EDG SAME DAY SURGERY [facility] [address] [place] [address] Carlos Sanders MD Discharge Disposition: Home or Self Care 10/14/2013 1:09 PM EDT - 10/14/2013 11:59 PM EDT Hospital Encounter [facility] D-WING XRAY [facility] [address] [place] [address] Carlos Sanders MD Discharge Disposition: Home or Self Care 10/14/2013 11:59 AM EDT - 10/14/2013 1:08 PM EDT Hospital Encounter EDG PRE-ADMIT TESTING [facility] [place] [address] Discharge Disposition: Home or Self Care 10/07/2013 Telephone [facility] [address] [place] [address] Zbigniew Ramos MD Cardiology Clearance (Thyroid Surger per ) 09/23/2013 11:15 AM EDT - 09/23/2013 11:59 PM EDT Hospital Encounter [place] Ultrasound [facility] [place] [address] Carlos Sanders MD Kerman, John H, MD Multiple thyroid nodules Discharge Disposition: Home or Self Care 05/09/2013 1:30 PM EST - 05/09/2013 11:59 PM EST Hospital Encounter [place] Mamm[facility] [place] [address] Kyaw Shook MD Other screening mammogram Discharge Disposition: Home or Self Care 05/09/2013 1:21 PM EST - 05/09/2013 1:29 PM EST Hospital Encounter [place] DEXA [facility] [place] [address] Kyaw Shook MD Post-menopausal; Screening Discharge Disposition: Home or Self Care 04/23/2012 10:07 AM EDT - 04/23/2012 11:59 PM EDT Hospital Encounter [facility] [address] [facility] [address] [place] [address] Zbigniew Ramos MD Mitral valve prolapse; Aortic valve regurgitation; Tricuspid valve regurgitation Discharge Disposition: Home or Self Care 04/20/2012 10:00 AM EDT Office Visit [facility] [place] [facility] [address] [place] [address] Zbigniew Ramos MD Mitral valve prolapse; Aortic valve regurgitation; Tricuspid valve regurgitation 06/05/2010 9:04 AM EST - 06/05/2010 10:26 AM EST Surgery [facility]G PERIOP [facility] [place] [address] Darci Camara MD LAPAROSCOPIC CHOLECYSTECTOMY POSSIBLE OPEN 06/05/2010 7:37 AM EST - 06/05/2010 12:14 PM EST Hospital Encounter EDG SAME DAY SURGERY [facility] [place] [address] Darci Camara MD Discharge Disposition: Home or Self Care 05/28/2010 3:17 PM EST - 05/28/2010 11:59 PM EST Hospital Encounter [place] EKG [facility] [place] [address] Darci Camara MD Discharge Disposition: Home or Self Care 05/28/2010 9:16 AM EST - 05/28/2010 3:16 PM EST Hospital Encounter [facility] PRE-ADMIT TESTING [facility] [place] [address] Darci Camara MD Discharge Disposition: Home or [...] 11:59 PM EDT Hospital Encounter [facility]G Kyaw Shook MD 12/06/1999 2:07 PM EDT - 12/06/1999 [...] EDT Hospital Encounter [facility] EPIC CON UNK EDAndrey Guillaume Allergies Active Allergy Reactions Criticality Noted Date [...] mouth daily. Hold until Thursday 4 Active SYNTHROID 100 mcg Oral Tablet Take 100 mcg by mouth daily. 4 Active diclofenac (VOLTAREN) 1 % Top Gel Apply topically as needed. Active triamcinolone (NASACORT) 55 mcg Nasl Aerosol, Redstone 2 Sprays by Nasal route daily. 16.5 g 5 5 Active Additional Information Patient not taking.Reported on 04/12/2025 sulfamethoxazole- trimethoprim (BACTRIM DS) 800-160 mg Oral Tablet Take 1 Tablet by mouth 2 times daily. 5 Active azelastine (ASTELIN) 137 mcg (0.1 %) Nasl Redstone, Non-AerosolIndica tions:Nasal congestion,Post-n patrick drip,Acute recurrent sinusitis, unspecified location 2 SPRAYS IN EACH NOSTRIL 2 TIMES DAILY FOR 90 DAYS. USE IN EACH NOSTRIL DIRECTED 90 mL 3 5 025 Active pantoprazole (PROTONIX) 40 mg Oral Tablet, Delayed Release (E.C.)Indications :Gastroesophageal reflux disease with esophagitis without hemorrhage Take 1 Tablet by mouth 2 times daily. 60 Tablet 5 5 Active Active Problems Problem Noted Date Diagnosed Date Acute blood loss anemia 09/08/2023 Hypokalemia 09/08/2023 Gastrointestinal hemorrhage, unspecified gastrointestinal hemorrhage type 09/06/2023 Rectocele 04/26/2019 Overview (04/26/2019): Added automatically from request for surgery [id number] Overactive bladder 04/26/2019 Overview (04/26/2019): Added automatically from request for surgery [id number] Incomplete bladder emptying 04/26/2019 Overview (04/26/2019): Added automatically from request for surgery [id number] Cystocele, midline 04/26/2019 Overview (04/26/2019): Added automatically from request for surgery [id number] Stress incontinence 04/26/2019 Overview (04/26/2019): Added automatically from request for surgery [id number] Vitamin D deficiency 01/10/2014 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 PTC, [id number] Stage I Mitral valve prolapse Overview (04/15/2012): [...] Alive Social History Smoking Status as of 05/12/2025 Tobacco Use Types Packs/Day Years Used Date Smoking Tobacco: Never Assessed [facility] Utilities Answer Date Recorded In the past 12 months has e [facility], gas, oil, or water [employer] threatened to shut off services in your [...] Date Recorded PHQ-2 Total Score 0 09/07/2023 [facility] - Occupational Stress [...] money to get more. Never true 09/07/2023 [facility] H[facility]N [facility] IP Transportation Answer D ate Recorded [...] 17 04/12/2025 9:29 AM EDT Oxygen Saturation 97% 09/08/2023 12:11 PM EDT Inhaled Oxygen Concentration - - Weight 59.1 kg (130 lb 6.4 oz) 04/12/2025 9:29 A M EDT Height 165.1 cm (5' 5 ) 04/12/2025 9:29 AM EDT Body Mass Index 21.7 04/12/2025 9:29 AM EDT Plan of Treatment Upcoming Encounters Date Type Department Care Team (Late st Contact Info) Description 06/01/2025 2:00 PM EST Appointment [facility] [address] [place], [place] [id number] Henry Hutchison MD [address] [place] [address] 11/10/2025 1:30 PM EDT Office Visit [facility] [address] [place] [address] Stephon Galan MD [address] [place] [address], [place] [address] Medical Devices Implanted Type Area Bench Shear Operator Device Identifier Shelf Expiration Date Model / Serial / Lot System Sling Desara Blue Short Suture - [id number] Implanted:Qty: 1 on 07/19/2019 by Hanna Iglesias MD at [facility] N/A: Vagina [employer] 05/28/2020 [id number] / / [id number] Mesh Poly Lightweight Flex Str 10cmw X 22 Cml - [id number] Implanted:Qty: 1 on 07/19/2019 by Hanna Iglesias MD at [facility] N/A: Vagina [employer] 11/12/2023 [facility]-[id number] / / [id number] Procedures Procedure Name Priority Date/Time Associated Diagnosis Comments [employer] CAROTID DUPLEX BILATERAL Routine 04/06/2025 10:08 AM EDT Nonrheumatic aortic valve insufficiency Bruit of right carotid artery Right carotid bruit MM MAMMO DIGITAL ELINA SCREEN BILAT Routine 03/22/2025 2:27 PM EDT Encounter for screening mammogram for malignant neoplasm of breast CT [place] ZBIGNIEW WO CONTRAST Routine 10/21/2024 12:38 PM EDT Nasal congestion Acute recurrent sinusitis, unspecified location EC ECHOCARDIOGRAM COMPLETE W DOPPLER AND COLOR FLOW MAPPING Routine 08/31/2024 1:07 PM EDT Nonrheumatic aortic valve insufficiency Gastrointestinal hemorrhage, unspecified gastrointestinal hemorrhage type ND ARTHROCENTESIS ASPIR&/INJ MAJOR JT/BURSA W/O US Routine [...] Take 112 mcg by mouth daily. 09/06/2023 [id number] docusate sodium (COLACE) 100 mg Oral Capsule [...] cancer (HCC) October 2013 Follicular variant PTC, [id number] Stage I Tricuspid valve regurgitation Urinary tract infection last one 07/05 Vitamin D deficiency 01/10/2014 Past Surgical History: Past Surgical History: Procedure Laterality Date BREAST SURGERY biopsy CHOLECYSTECTOMY, LAPAROSCOPIC 06/05/2010 LAPAROSCOPIC CHOLECYSTECTOMY POSSIBLE OPEN - SCIP performed by DARCI CAMARA at [facility] MAIN OR COLPOPEXY N/A 07/19/2019 Robotic Sacrocolpopexy, Placement of Transobturator Urethral Mesh Sling,Posterior Repair, Cystoscopy ; Surgeon: Hanna Iglesias MD; Location: [facility] MAIN OR; Service:Robotics CYSTOCELE REPAIR N/A 07/19/2019 Surgeon: Hanna Iglesias MD; Location: [facility] OR; Service:Robotics CYSTOSCOPY N/A 07/19/2019 Surgeon: Hanna Iglesias MD; [facility] [facility] MAIN OR; Service:Robotics HYSTERECTOMY OVARY REMOVAL THYROIDECTOMY Bilateral 10/20/2013 RIGHT THYROID LOBECTOMY with isthmusectomy; Surgeon: Carlos Sanders MD;Location: [facility] MAIN OR; Service: ENT THYROIDECTOMY N/A 11/17/2013 COMPLETION THYROIDECTOMY; Surgeon: Carlos Sanders MD; Location: [facility] OR; Service: ENT TONSILLECTOMY URETHROPEXY N/A 07/19/2019 Surgeon: Hanna Iglesias MD; Location: [facility] OR; Service:Robotics Family History: Family History Problem [...] start this evening. Eduardo Saleh MD PHD [facility] Gastroenterology ADMIT Routine 09/06/2023 6:46 PM [...] establish care Heart murmur Right carotid bruit [place] US CAROTID DUPLEX BILATERAL Routine 02/20/2023 10:52 [...] thyroid gland (HCC) Special Needs KATLYN CPT 51392 LAB:JOSIAH BORGES 11/04 DTCHART REVIEW/DATABASE PTH INTRAOPERATIVE [...] unspecified endocrine glands Special Needs KATLYN CPT; 49782 XR CHEST PA AND LATERAL PHYLLIS 10/14/2013 1:16 PM EDT DIFFERENTIAL Routine 10/14/2013 1:00 PM EDT PT / INR Routine 10/14/2013 1:00 PM EDT PARTIAL THROMBOPLASTIN TIME Routine 10/14/2013 1:00 PM EDT COMPREHENSIVE METABOLIC PANEL Routine 10/14/2013 1:00 PM EDT CBC WITH DIFF Routine 10/14/2013 1:00 PM EDT NON-HEEL COVERER MACHINE OPERATOR CYTOLOGY REPORT Routine 09/23/2013 1:01 PM EDT [...] Gallbladder polyps and cholelitiasis Special Needs CPT 96847 KARENADDED PROCEDURE SG 12-15 DIFFERENTIAL Pre-Op 05/28/2010 9:58 AM EST BILIRUBIN TOTAL Pre-Op 05/28/2010 9:58 AM EST ALKALINE PHOSPHATASE Pre-Op 05/28/2010 9:58 AM EST BASIC METABOLIC PANEL Pre-Op 05/28/2010 9:58 AM EST CBC WITH DIFF Pre-Op 05/28/2010 9:58 AM EST EK EKG 12 LEAD Pre-Op 05/28/2010 9:51 AM EST US ABDOMEN LIMITED Routine 07/26/2009 12:[address] ABD/PELVIS STUDY ASSISTANT Routine 07/14/2009 2:58 PM EST MM DIG DIAG CHALINO PANEL W/CAD Routine 07/06/2009 2:37 PM EST EK EKG REG Routine 07/28/2008 10:38 AM EST EK EKG REG Routine 07/27/2008 7:09 PM EST XX CHEST PORTABLE Routine 07/27/2008 5:50 PM EST Results * [place] US CAROTID DUPLEX BILATERAL (04/06/2025 10:08 AM EDT) Only the most recent of2 resultswithin the time period is included. Anatomical Region Laterality Modality Vascular, Head, Neck [...] vertebral arteries. Narrative Procedure Note Lito Cross, DO - 04/06/2025 IMPRESSION Conclusions * There is a right proximal internal carotid artery mildly obstructive lesion noted, with an estimated 1-39% stenosis. * There is a left proximal internal carotid artery mildly obstructivelesion noted, with an estimated 1-39% stenosis. * Antegrade flow visualized in the bilateral vertebral arteries. us Stephon Galan MD IMG VASCULAR ORDERABLES Final Result * MM MAMMO DIGITAL ELINA SCREEN BILAT (03/22/2025 2:27 PM EDT) Only the most recent of2 resultswithin the time period is included. Anatomical Region Laterality Modality Breast Bilateral Mammography 03/22/2025 2:27 PM EDT Impressions 03/23/2025 8:22 AM EDT Benign ([id number]-7) RECOMMENDATION: Routine Screening Mammogram in 1 Year Bilateral . . COMMENTS: DISCLAIMER *The patient was notified by MyChart or mail of the results for this examination. *The patient's information was entered into a reminder system with a target due date for the next breast imaging, in accordance with the [place] [employer] and the Society of [...] for screening mammogram for malignant neoplasm of kwgkbg-HXI-55-CM COMPARISON STUDIES: Compared with prior studies the most recent being 11/11/2023 MM MAMMO DIGITAL ELINA SCREEN BILAT at [facility] 03/04/2018 MM MAMMO DIGITAL SCREENING W CAD BILAT at [facility] 05/09/2013 MM MAMMO DIGITAL SCREENING W CAD BILAT at [facility] TISSUE DENSITY: There are scattered areas of fibroglandular density. FINDINGS: No mammographic evidence of malignancy. 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 Procedure Note Rudi Hinojosa, DO - 03/23/2025 EXAM: MM MAMMO DIGITAL ELINA SCREEN BILAT EXAM DATE: 03/22/2025 2:27 PM INDICATION: Z12.31-Encounter for screening mammogram for malignantneoplasm of bgoblj-OQT-35-CM COMPARISON STUDIES: Compared with prior studies the most recent being 11/11/2023 MM MAMMO DIGITAL ELINA SCREEN BILAT at [facility] 03/04/2018 MM MAMMO DIGITAL SCREENING W CAD BILAT at [facility] 05/09/2013 MM MAMMO DIGITAL SCREENING W CAD BILAT at [facility] TISSUE DENSITY: There are scattered areas of fibroglandular density. FINDINGS: No mammographic evidence of malignancy. 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 IMPRESSION: Benign ([id number]-2) RECOMMENDATION: Routine Screening Mammogram in 1 Year Bilateral . . COMMENTS: DISCLAIMER *The patient was notified by MyChart or mail of the results for this examination. *The patient's information was entered into a reminder system with atarget due date for the next breast imaging, in accordance with the [place] [employer] and the Society of Breast Imaging recommendations. *Breast Imaging has a false negative rate of 15%. *Any patient with a palpable abnormality, unexplained by breast imaging,should be managed on a clinical basis by the attending physician. us Kyaw Shook MD IM MAMMOGRAPHY ORDERABLES Final Result * CT SINUS LAND ZBIGNIEW WO CONTRAST (10/21/2024 12:38 PM EDT) Anatomical Region Laterality Modality Head Computed Tomogra phy 10/21/2024 12:3 8 PM EDT Impressions 10/21/2024 3:17 PM EDT Mild bilateral maxillary sinus mucosal thickening. Elongated styloid processes. Advanced discogenic cervical degeneration. Anatomic details above. Narrative 10/21/2024 3:[address] SINUS LAND ZBIGNIEW WO CONTRAST 10/21/2024 12:38 PM CLINICAL HISTORY: R09.81-Nasal emkpszsote-ZDW-12-CM J01.91-Acute recurrent sinusitis, dilqtzzvhej-AEG-66-CM. COMPARISON: None. PROCEDURE COMMENTS: Volumetric helical scanning [...] nonspecific though can be associated with clinical Soboba syndrome. Very mild calcific plaque regional to [...] CONTRAST 10/21/2024 12:38 PM CLINICAL HISTORY: R09.81-Nasal wyyhuzbzpp-XTT-49-CM J01.91-Acute recurrent sinusitis, jqvvuywusqa-HCW-59-CM. COMPARISON: None. PROCEDURE COMMENTS: Volumetric helical scanning [...] processes, nonspecific though canbe associated with clinical Soboba syndrome. Very mild calcific plaqueregional to both [...] processes. Advanced discogenic cervical degeneration. Anatomicdetails above. us Zehra Colon PA-C IMG CT ORDERABLES F inal Result [...] IMG ECHO ORDERABLES Nelly l Result * ND ARTHROCENTESIS ASPIR&/INJ MAJOR JT/BURSA W/O US (11/12/2023 [...] and draped in the usual sterile fashion. Hal Marcelo DO PROCEDURE/MINOR SURGICAL ORDERA BLES Final Result ORTHOCINCY * XR SHOULDER LEFT 3 VIEWS (11/05/2023 10:04 AM EDT) Narrative StacirJannie - 11/05/2023 10:04 AM EDT Please see physician's note from office encounter for x-ray imaging result Kayleigh Mason PA-C IMRobyn DIAGNOSTIC IMAGING O RDERABLES Final Result * [...] Staff Staff Role Zechariah Reddy MD Anesthesiologist MILAD Thomas CRNA, RN Endoscopy Nurse Eduardo Saleh MD PHD Performing Provider Shadi Gillis RN [employer] Detective Medications See Anesthesia Record. Preprocedure A history [...] In - Proc. Room 09/07 10:12 AM us Lydia Ribeiro RESIDENCE SUPERVISOR ENDOSCOPY PROCEDURE O RDERABLES Final Result * INTRAOP AIRWAY PLACEMENT (09/08/2023 10:15 AM EDT) Narrative [facility] - 09/08/2023 10:15 AM EDT Claudia Clayton CRNA 09/08/2023 10:23 AM Intraop Airway Placement: Date/Time: 09/08/2023 10:15 AM Airway type: Nasal cannula salter us Zechariah Reddy MD ND ANESTHESIA Final Result [facility] [address] [place] [address] * (ABNORMAL) CBC (09/08/2023 7:27 AM EDT) Only the most recent of5 resultswithin the time period is included. WBC 6.8 3.7 - 10.3 x10(3)/mcL 09/08/2023 8:05 AM EDT [facility] RBC 3.16(L) 3.90 - 5.20 x10(6)/mcL 09/08/2023 8:05 AM EDT [facility] [...] ORDERABLES Final R esult [facility] [address] [facility] , [place] [address] * (ABNORMAL) BASIC METABOLIC PANEL (09/08/2023 7:27 AM EDT) Only the most recent of4 resultswithin the time period is included. Sodium 143 136 - 145 mmol/L 09/08/2023 8:24 AM EDT [facility] Potassium 3.3(L) 3.5 - 5.0 mmol/L 09/08/2023 8:24 AM EDT [facility] Chloride 109(H) 98 - 107 mmol/L 09/08/2023 8:24 AM EDT [facility] Total CO2 24 22 - 29 mmol/L 09/08/2023 8:24 AM EDT [facility] Anion Gap 10 7 - 16 mmol/L 09/08/2023 8:24 AM EDT [facility] Calcium 8.4(L) 8.8 - 10.4 mg/dL 09/08/2023 8:24 AM EDT [facility] Glucose Lvl 86 70 - 99 mg/dL 09/08/2023 8:24 AM EDT [facility] BUN 8 8 - 23 mg/dL 09/08/2023 8:24 AM EDT [facility] Creatinine 0.63 0.51 - 1.30 mg/dL 09/08/2023 8:24 AM EDT [facility] eGFR (CKD-EPIcr 2020) 91 >=60 mL/min/1.7 3 m2 09/08/2023 8:24 AM EDT [facility] Comment:Estimated GFR was ca lculated using the CKD-EPIcr (2020) equation refit without race. The equation is recommended by the National Kidney Foundation - [place] [employer] Nephrology Task Force. Blood VENOUS BLOOD / Unknown Venipuncture / Unknown 09/08/2023 7:27 AM EDT 09/08/2023 7:57 AM EDT us Dago Vernon MD CHEMISTRY ORDERABLES Final Re sult [facility] [address] [facility], [place] [address] [facility] [address] [place] [phone] * (ABNORMAL) HEMOGLOBIN AND HEMATOCRIT (09/08/2023 1:29 AM EDT) Only the most recent of5 resultswithin the time period is included. Pathologist [facility] Hgb 8.6(L) 11.2 - 15.7 g/dL 09/08/2023 1:51 AM EDT [facility] Hct 26.0(L) 34.0 - 45.0 % 09/08/2023 1:51 AM EDT [facility] Blood VENOUS BLOOD / Unknown Venipuncture / Unknown 09/08/2023 1:29 AM EDT 09/08/2023 1:44 AM EDT us Eduardo Hardy MD HEMATOLOGY ORDERABLES Final Result Performing Organization Address [facility]/ZIP Co de Phone Number [facility] [address], [place] [address] * ECG AND WAVEFORMS - TELEMETRY (09/07/2023 7:30 PM EDT) Only the most recent of2 resultswithin the time period is included. [facility] ECG INTERPRET NSR with PVCs [facility] 09/07/2023 7:30 PM EDT Narrative [facility] - 09/07/2023 10:38 PM EDT PC/HICUITY/ROUTINE ADMIT ND 0.14 QRS 0.10 QT 0.37 See Clinical Report link for waveform capture us Unknown Provider POINT OF CARE CARDIOLOGY Final Result Performing Organization Address City/[facility]/ZIP Co de Phone Number [facility] [address] [place] [address] * (ABNORMAL) HEPATIC FUNCTION PANEL (09/07/2023 8:24 AM EDT) [facility] Total Protein 5.2(L) 6.4 - 8.3 gm/dL 09/07/2023 9:07 AM EDT [facility] Albumin 3.4 3.2 - 4.6 gm/dL 09/07/2023 9:07 AM EDT [facility], [facility] Bili Direct <0.2 0.0 - 0.3 mg/dL 09/07/2023 9:07 AM EDT [facility], [facility] Bili Total 0.3 0.2 - 1.3 mg/dL 09/07/2023 9:07 AM EDT [facility], [facility] AST 22 <=40 U/L 09/07/2023 9:07 AM EDT [facility], [facility] ALT 19 <=41 U/L 09/07/2023 9:07 AM EDT [facility], [facility] Alk Phos 59 36 - 123 U/L 09/07/2023 9:07 AM EDT [facility], [facility] Blood VENOUS BLOOD / Unknown Venipuncture / Unknown 09/07/2023 8:24 AM EDT 09/07/2023 8:34 AM EDT us Dago Vernon MD CHEMISTRY ORDERABLES Final Re sult [facility], [facility] [address] [facility] , [place] [address] * CT ACUTE GI BLEED PROTOCOL (09/06/2023 [...] * TSH REFLEX (09/06/2023 4:53 PM EDT) TSH Reflex 1.030 0.270 - 4.200 mcIU/mL 09/06/2023 5:48 PM EDT [facility] Blood VENOUS BLOOD / Unknown Venipuncture / Unknown 09/06/2023 4:53 PM EDT 09/06/2023 5:02 PM EDT Narrative [facility] - 09/06/2023 5:48 PM EDT Ingestion of kyleigh doses of biotin (>5 mg/day) taken within 8 hours of drawing blood sample can interfere with this immunoassay test. us Eduardo Hardy MD CHEMISTRY ORDERABLES Final Result [address] [address] [facility] [address] [place] [address], [place] [address] * PARTIAL THROMBOPLASTIN TIME (09/06/2023 4:53 PM EDT) Only the most recent of2 resultswithin the time period is included. PTT 32.3 27.9 - 38.7 second(s) 09/06/2023 5:34 PM EDT [facility] Comment: Therapeutic range for unfractionated heparin: 50.1 [...] HEMATOLOGY ORDERABLES Final Result Performing Organization Address [facility] de Phone Number [facility] [address] , [place] [address] * PT / INR (09/06/2023 4:53 PM EDT) Only the most recent of2 resultswithin the time period is included. Pathologist [facility] PT 12.2 10.5 - 13.6 second(s) 09/06/2023 5:34 PM EDT [facility] INR 1.04 0.89 - 1.16 (ratio) 09/06/2023 5:34 PM EDT [facility] Comment: Level of Therapy Indications Target INR Range Standard Dose Treatment and prophylaxis of venous 2.0 - 3.0 thrombosis, pulmonary embolism High Dose High risk patients with mechanical 2.5 - 3.5 heart valves Blood VENOUS BLOOD / Unknown Venipuncture / Unknown 09/06/2023 4:53 PM EDT 09/06/2023 5:14 PM EDT Eduardo Hardy MD HEMATOLOGY ORDERABLES Final Result Performing Organization Address [facility] [place] Phone Number [facility] [address] , [place] [address] * (ABNORMAL) CBC WITH DIFF (09/06/2023 4:53 PM EDT) Only the most recent of3 resultswithin the time period is included. WBC 12.3(H) 3.7 - 10.3 x10(3)/mcL 09/06/2023 5:05 PM EDT [facility] RBC 3.73(L) 3.90 - 5.20 x10(6)/mcL 09/06/2023 5:05 PM EDT [facility] Hgb 10.5(L) 11.2 - 15.7 g/dL 09/06/2023 5:05 PM EDT [facility] Hct 31.9(L) 34.0 - 45.0 % 09/06/2023 5:05 PM EDT [facility] MCV 85.5 80.0 - 100.0 fL 09/06/2023 5:05 PM EDT [facility] MCH 28.2 26.0 - 34.0 pg 09/06/2023 5:05 PM EDT [facility] MCHC 32.9 30.7 - 35.5 g/dL 09/06/2023 5:05 PM EDT [facility] RDW 13.8 <=14.9 % 09/06/2023 5:05 PM EDT [facility] Platelet 342 155 - 369 x10(3)/mcL 09/06/2023 5:05 PM EDT [facility] MPV 10.1 8.8 - 12.5 fL 09/06/2023 5:05 PM EDT [facility] Neut Percent 85.0 % 09/06/2023 5:05 PM EDT [facility] Comment:Neutrophils equals s egs plus bands Imm Gran% 0.2 % 09/06/2023 5:05 PM EDT [facility] Comment:Automated count of m etamyelocytes, myelocytes and promyelocytes. Lymph Percent 7.9 % 09/06/2023 5:05 PM EDT [facility] Hooker Percent 6.0 % 09/06/2023 5:05 PM EDT [facility] Eos Percent 0.7 % 09/06/2023 5:05 PM EDT [facility] Baso Percent 0.2 % 09/06/2023 5:05 PM EDT [facility] Neut # 10.4(H) 1.6 - 6.1 x10(3)/mcL 09/06/2023 5:05 PM EDT [facility] Comment:Neutrophils equals s egs plus bands IMMGRAN# 0.0 0.0 - 0.1 x10(3)/mcL 09/06/2023 5:05 PM EDT [facility] Comment:Automated count of m etamyelocytes, myelocytes and promyelocytes. An absolute IG <0.1 is reported as 0.0. Lymph # 1.0(L) 1.2 - 3.9 x10(3)/[facility] 09/06/2023 5:05 PM EDT [facility] Hooker # 0.7 0.3 - 0.9 x10(3)/mcL 09/06/2023 5:05 PM EDT [facility] Eos# 0.1 0.0 - 0.5 x10(3)/mcL 09/06/2023 5:05 PM EDT [facility] Baso # 0.0 0.0 - 0.1 x10(3)/[facility] 09/06/2023 5:05 PM EDT [facility] Blood VENOUS BLOOD / Unknown Venipuncture / Unknown 09/06/2023 4:53 PM EDT 09/06/2023 5:02 PM EDT us Eduardo Hardy MD HEMATOLOGY ORDERABLES Final Result [facility] [address] [place] [phone] * (ABNORMAL) COMPREHENSIVE METABOLIC PANEL (09/06/2023 4:53 PM EDT) Only the most recent of4 resultswithin the time period is included. Sodium 142 136 - 145 mmol/L 09/06/2023 5:20 PM EDT [facility] Potassium 4.4 3.5 - 5.0 mmol/L 09/06/2023 5:20 PM EDT [facility] Chloride 109(H) 98 - 107 mmol/L 09/06/2023 5:20 PM EDT [facility] Total CO2 22 22 - 29 mmol/L 09/06/2023 5:20 PM EDT [facility] Anion Gap 11 7 - 16 mmol/L 09/06/2023 5:20 PM EDT [facility] Calcium 8.9 8.8 - 10.4 mg/dL 09/06/2023 5:20 PM EDT [facility] Glucose Lvl 108(H) 70 - 99 mg/dL 09/06/2023 5:20 PM EDT [facility] BUN 25(H) 8 - 23 mg/dL 09/06/2023 5:20 PM EDT [facility] Creatinine 0.69 0.51 - 1.30 mg/dL 09/06/2023 5:20 PM EDT [facility] Albumin 3.9 3.2 - 4.6 gm/dL 09/06/2023 5:20 PM EDT [facility] Total Protein 6.1(L) 6.4 - 8.3 gm/dL 09/06/2023 5:20 PM EDT [facility] Bili Total 0.3 0.2 - 1.3 mg/dL 09/06/2023 5:20 PM EDT [facility] ALT 19 <=41 U/L 09/06/2023 5:20 PM EDT [facility] AST 20 <=40 U/L 09/06/2023 5:20 PM EDT [facility] Alk Phos 70 36 - 123 U/L 09/06/2023 5:20 PM EDT [facility] eGFR (CKD-EPIcr 2020) 89 >=60 mL/min/1.7 3 m2 09/06/2023 5:20 PM EDT [facility] Comment:Estimated GFR was ca lculated using the CKD-EPIcr (2020) equation refit without race. The equation is recommended by the National Kidney Foundation - [place] [employer] of Nephrology Task Force. Blood VENOUS BLOOD / Unknown Venipuncture / Unknown 09/06/2023 4:53 PM EDT 09/06/2023 5:02 PM EDT us Eduardo Hardy MD CHEMISTRY ORDERABLES Final Result [facility] [address] [place] [address] * US AAA SCREENING EXAM MEDICARE [...] EXAM MEDICARE, 07/17/2023 7:20 AM CLINICAL HISTORY: R19.91-Fmldv-leikpkvsb and pelvic swelling, mass and lump, unspecified jghh-JIZ-16-CM Z82.49-Family history of ischemic heart disease and other diseases of the circulatory tszlja-HDS-71-CM Z85.850-Personal history of malignant neoplasm of jrdujjd-ZBQ-67-CM K21.1-Wrbgsv-njjfsnltee reflux disease without yyyscheylww-DAI-69-CM. COMPARISON: No comparison ultrasound imaging studies. PROCEDURE COMMENTS: Routine sonographic evaluation of the abdominal aorta with lead customer service representative images sent to PACS along with accounts receivable analyst notes. FINDINGS: Real-time grayscale/Doppler imaging of the abdominal aorta performed. Diffuse atherosclerotic changes of the aortic lumen. The central lumen and both proximal common iliac arteries are widely patent. No focal/diffuse aneurysmal dilatation. Maximal AP/transverse dimension, 2.6 x 2.1 cm. Procedure Note Rudi Hinojosa DO - 07/17/2023 US AAA SCREENING EXAM MEDICARE, 07/17/2023 7:20 AM CLINICAL HISTORY: R19.39-Hzowa-jasnwnglg and pelvic swelling, mass andlump, unspecified brxh-BXI-70-CM Z82.49-Family history of ischemic heart disease and other diseases ofthe circulatory jnbdfu-NVC-00-CM Z85.850-Personal history of malignant neoplasm of kamrlcx-BVT-81-CM K21.5-Lxiffe-qvrdlyifwh reflux disease without lltzpuccvmg-YVK-56-CM. COMPARISON: No comparison ultrasound imaging studies. PROCEDURE COMMENTS: Routine sonographic evaluation of the abdominal aortawith lead customer service representative images sent to PACS along with accounts receivable analyst notes. FINDINGS: Real-time grayscale/Doppler imaging of the [...] the ordering clinician. us Kyaw Shook MD IMG US ORDERABLES Final Result * XR FOOT LEFT [...] 12:53 PM CLINICAL HISTORY: M79.672-Pain in left wvun-XRK-06-CM COMPARISON: None. PROCEDURE COMMENTS: XR FOOT LEFT [...] 12:53 PM CLINICAL HISTORY: M79.672-Pain in left iual-MCL-52-CM COMPARISON: None. PROCEDURE COMMENTS: XR FOOT LEFT [...] contactthe office of the ordering clinician. us Emma Kennedy APRN IMG DIAGNOSTIC IMAGING ORDER JANET Final Result * POCT EKG (01/08/2023 1:38 PM EDT) 01/08/2023 1:38 PM EDT Impressions SEP OFFICE - 01/08/2023 1:38 PM EDT Sinus Rhythm WITHIN NORMAL LIMITS us Stephon Galan MD POINT OF CARE CARDIOLOGY Final Result SEP OFFICE * LIPID PANEL REFLEX (09/23/2021 9:30 AM EDT) Only the most recent of2 resultswithin the time period is included. Cholesterol 134 <200 mg/dL 09/23/2021 4:58 PM EDT [facility] Comment: < 200 Desirable 200 - 239 Borderline High >= 240 High Triglyceride 65 <150 mg/dL 09/23/2021 4:58 PM EDT [facility] Comment: < 150 Normal 150 - 199 Borderline High 200 - 499 High >= 500 Very High HDL 70 >=40 mg/dL 09/23/2021 4:58 PM EDT [facility] Comment: > 60 Optimal 40 - 60 Acceptable < 40 Low LDL Calculated 51 <100 mg/dL 09/23/2021 4:58 PM EDT [facility] Non-HDL-C Calculated 64 <=129 mg/dL 09/23/2021 4:58 PM EDT [employer] [facility] [employer] [facility] Comment: <130 Desirable 130-159 Above Desirable 160-189 Borderline High 190-219 High >= 220 Very High Fasting Specimen? Yes None 022 4:58 PM EDT [facility] Blood VENOUS BLOOD / Unknown Venipuncture / Unknown 09/23/2021 9:30 AM EDT 09/23/2021 9:30 AM EDT Kyaw Shook MD CHEMISTRY ORDERABLES Final Resul t Performing Organization Address [facility] Phone Number [facility] [employer] [address] [place] [address] , [place] [address] [facility] [address] [place] [address] * THYROID STIMULATING HORMONE (09/23/2021 9:30 AM EDT) Only the most recent of6 resultswithin the time period is included. TSH 0.863 0.270 - 4.200 mcIU/mL 09/23/2021 4:58 PM EDT [facility] Blood VENOUS BLOOD / Unknown Venipuncture / Unknown 09/23/2021 9:30 AM EDT 09/23/2021 9:30 AM EDT Narrative [facility] [employer] - 09/23/2021 4:58 PM EDT Ingestion of kyleigh doses of biotin (>5 mg/day) taken within 8 hours of drawing blood sample can interfere with this immunoassay test. Kyaw Shook MD CHEMISTRY ORDERABLES Final Resul t Performing Organization Address [facility] Phone Number [facility] [employer] [address] [place] [address] , [place] [address] * (ABNORMAL) POCT URINALYSIS DIPSTICK (08/30/2019 12:04 PM EDT) Only the most recent of3 resultswithin the time period is included. Color, UA Yellow CLEAR,YELL OW,ORANGE, RUST SEP OFFICE Clarity, UA Clear CLEAR,CLOU DY SEP OFFICE Glucose, UA Negative G/DL% SEP OFFICE Bilirubin, UA Negative POS/NEG SEP OFFICE Ketones, UA Negative POS/NEG SEP planer chain offbearer Grav, UA 1.000(A) 1.001 - 1.035 G/DL [...] 08/30/2019 12:0 4 PM EDT Kellee Lara RESIDENCE SUPERVISOR POINT OF CARE TEST ORDER JANET Final Result Performing Organization Address City/[facility] de Phone Number SEP OFFICE * URINE CULTURE (NO STAIN) (08/30/2019 11:59 AM EDT) Only the most recent of2 resultswithin the time period is included. Culture No growth at 30 hours. 09/01/2019 4:44 PM EDT [employer] Urine URINARY BLADDER STRUCTURE / Unknown 08/30/2019 11:59 AM EDT 08/30/2019 11:59 AM EDT Kellee Lara APRN MICROBIOLOGY - GENERAL O RDERABLES Final Result Performing Organization Address [facility] de Phone Number [employer] [address] [place] [address] , [place] [address] * SCANNED RHYTHM STRIPS (07/23/2019 1:23 PM EST) Only the most recent of3 resultswithin the time period is included. Anatomical Region Laterality Modality Other 07/23/2019 1:23 PM EST us Unknown Unknown IMG ECG ORDERABLES Final Result * INTRAOP AIRWAY PLACEMENT (07/19/2019 8:14 AM EST) Narrative [facility] - 07/19/2019 8:14 AM EST Ines [...] Atraumatic and Unchanged Insertion attempts: 1 Title: PRESSURE TESTER us Mendel Brice MD [place] [address] * (ABNORMAL) URINALYSIS (02/18/2019 9:36 AM EDT) UA Color Straw 02/18/2019 10:19 PM EDT [facility] UA Appear Clear Clear 02/18/2019 10:19 PM EDT [facility] UA Glucose Negative Negative mg/dL 02/18/2019 10:19 PM EDT [facility], [facility] UA Ketones Negative Negative mg/dL 02/18/2019 10:19 PM EDT [facility] UA Blood Small(A) Negative 02/18/2019 10:19 PM EDT [facility] UA pH 7.0 5.0 - 8.0 pH 02/18/2019 10:19 PM EDT [facility] UA Protein Negative Negative mg/dL 02/18/2019 10:19 PM EDT [facility] UA Urobilinogen Normal <=1 mg/dL 9 10:19 PM EDT [facility] UA Bili Negative Negative 02/18/2019 10:19 PM EDT [facility] UA Nitrite Negative Negative 02/18/2019 10:19 PM EDT [facility] UA Leuk Est Negative Negative 02/18/2019 10:19 PM EDT [facility] UA Spec Grav 1.006 1.001 - 1.035 no units 02/18/2019 10:19 PM EDT [facility] Comment: Reference range valid for random specimens only. UA WBC 0 0 - 4 /HPF 02/18/2019 10:19 PM EDT [facility] UA RBC <1 0 - 3 /HPF 02/18/2019 10:19 PM EDT [facility] UA Mucus Trace /LPF 02/18/2019 10:19 PM EDT [facility] UA Bacteria Trace(A) Negative /HPF 02/18/2019 10:19 PM EDT [facility] Urine 02/18/2019 9:36 AM EDT 02/18/2019 9:36 AM EDT us Hanna Iglesias MD URINE ORDERABLES Final Re sult [facility] [address] [facility] , [place] [address] * MM MAMMO DIGITAL SCREENING W CAD BILAT (03/04/2018 10:07 AM EDT) Only the most recent of2 resultswithin the time period is included. Anatomical Region Laterality Modality Breast Bilateral Mammography 03/04/2018 11:4 1 AM EDT Impressions 03/04/2018 11:41 AM EDT Benign finding ([id number]) ~ RECOMMENDATION: Routine screening mammogram in 1 [...] for screening mammogram for malignant neoplasm of [id number]-[id number]-CM ~ MM MAMMO DIG SCREEN CAD BILAT Bilateral CC and MLO view(s) were taken. There are scattered fibroglandular densities. 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 There is no mammographic evidence of malignancy in either breast. ~ Procedure Note Mila Garcia MD - 03/04/2018 Procedure:MM MAMMO DIGITAL SCREENING W CAD BILAT ~ Reason for exam: screening, asymptomatic. Z12.31-Encounter for screening mammogram for malignant neoplasm of [id number]-RYD-77-CM ~ MM MAMMO DIG SCREEN CAD BILAT Bilateral CC and MLO view(s) were taken. There are scattered fibroglandular densities. Prior study comparison: Compared with prior studies the most recentbeing 05/09/13, 07/06/09 There is a stable calcified involuted fibroadenoma in the right breastat 9:00. There is no mammographic evidence of malignancy in either breast. ~ IMPRESSION: Benign finding ([id number]-[id number]-1) ~ RECOMMENDATION: Routine screening mammogram in 1 [...] Radiologist and CAD. us Kyaw Shook MD [facility] MAMMO[facility]APHY ORDERABLES Final Result * DX BONE DENSITY AXIAL INCLUDING VERTEBRAL FRACTURE ASSESSMENT (03/04/2018 9:40 AM EDT) Anatomical Region Laterality Modality Dexa Scan 03/04/2018 Narrative 03/10/2018 8:15 AM EDT Indication: The patient is a female age 65 or older who requires a bone density assessment/monitoring. Vertebral Fracture Assessment was performed per protocol. Study was performed on [employer]. Bone Density: Region BMD T-score Z-score AP [...] other abnormalities. Reported by: Benita Noble PA-C, CCD on 03/09/2018 1:10:00 PM. Kyaw Shook MD [facility] DEXA ORDERABLES Final Result * (ABNORMAL) VITAMIN D 25 HYDROXY (04/11/2015 4:20 PM EDT) Only the most recent of3 resultswithin the time period is included. [facility] VIT D 25 OH 20.7(L) 30.0 - 120.0 ng/mL [facility] Comment: INTERPRETIVE INFORMATION: Vitamin D, [...] ORDERABLES Fin al Result Performing Organization Address [facility] [place] [address] * (ABNORMAL) T4, FREE (THYROXINE) (04/11/2015 4:20 PM EDT) Only the most recent of4 resultswithin the time period is included. Free T4 1.93(H) 0.93 - 1.70 ng/dL [facility] Blood specimen (specimen) 04/11/2015 4:20 PM EDT 04/11/2015 6:54 PM EDT Janina Montes MD CHEMISTRY ORDERABLES Fin al Result Performing Organization Address [facility] [place] [address] * US THYROID SURVEILLANCE (09/26/2014 11:11 AM [...] thyroid surveillance study. us Janina Montes MD [facility] US ORDERABLES Final Result * (ABNORMAL) THYROGLOBULIN AND TG AB REFLEX MONITOR-ARUP (09/26/2014 10:00 AM EDT) Thyroglobulin-MIUP 0.2(L) 1.3 - 31.8 ng/mL [facility] Comment: INTERPRETIVE INFORMATION: Thyroglobulin, Serum or Plasma Specimens negative for thyroglobulin antibodies (TgAb) are tested for thyroglobulin (Tg) by chemiluminescent immunoassay (DOROTEO) using the [employer] [place] Access DxI method. Specimens with TgAb results [...] Thyroglob Ab <0.9 0.0 - 4.0 IU/mL [facility] Comment: INTERPRETIVE INFORMATION: Thyroglobulin Antibody A value of 4.0 IU/mL or less indicates a negative result for thyroglobulin antibodies. The Thyroglobulin Antibody assay is being performed using the [place] Access DxI method. THYROGLOBULIN LC-MS/MS-[facility] Not Applicable 1.3 - 31.8 ng/mL [facility] Comment: INTERPRETIVE INFORMATION: Thyroglobulin by LC-MS/MS, Serum/Plasma Lower limit of detection for Thyroglobulin by LC-MS/MS is 0.5 ng/mL. Test developed and characteristics determined by [employer]. See Compliance Statement B: [email or web address] Blood specimen (specimen) 09/26/2014 10:00 AM EDT 09/26/2014 3:20 PM EDT us Janina Montes MD CHEMISTRY ORDERABLES Fin al Result Performing Organization Address City/[facility]/ZIP Co de Phone Number [facility] [address] [place] [address] * CALCIUM LEVEL TOTAL (09/26/2014 10:00 AM EDT) Only the most recent of4 resultswithin the time period is included. Calcium 9.4 8.8 - 10.2 mg/dL [facility] Blood specimen (specimen) 09/26/2014 10:00 AM EDT 09/26/2014 10:00 AM EDT Narrative [facility] - 09/26/2014 10:44 AM EDT Call [phone] if level less then 7.5 Carlos Sanders MD CHEMISTRY ORDERABLES Final Resul t Performing Organization Address [facility] Co de Phone Number [facility] [address] [place] [address] * THYROGLOBULIN (01/04/2014 11:35 AM EDT) Thyroglobulin 0.4 0.0 - 55.0 ng/mL [facility] Comment: Thyroglobulin Autoantibodies may interfere with assays for Thyroglobulin and may cause underestimation of the Thyroglobulin level. If Thyroglobulin is ordered alone, please interpret with caution. Performed at: [employer] [facility] [employer] [facility], [place] [address] Blood specimen (specimen) 01/04/2014 11:35 AM EDT 01/04/2014 2:16 PM EDT us Janina Montes MD CHEMISTRY ORDERABLES Fin al Result Performing Organization Address City/[facility]/ZIP Co de Phone Number [facility] [address] [place] [address] * THYROGLOBULIN ANTIBODY (01/04/2014 11:35 AM EDT) Thyroglob Ab <20.0 <40.0 [facility] Comment: Performed at: [employer] [facility] [employer] [facility], [address] [place] [address] Blood specimen (specimen) 01/04/2014 11:35 AM EDT 01/04/2014 2:16 PM EDT us Janina Montes MD IMMUNOLOGY ORDERABLES Fi nal Result [facility] [address] [place] [address] * (ABNORMAL) RENAL FUNCTION PANEL (01/04/2014 11:35 AM EDT) Sodium 141 136 - 145 mmol/L [facility] Potassium 4.2 3.5 - 5.0 mmol/L [facility] Chloride 106 98 - 107 mmol/L [facility] Total CO2 28 22 - 29 mmol/L [facility] Anion Gap 7 7 - 16 mmol/L [facility] Calcium 9.3 8.8 - 10.2 mg/dL [facility] Glucose Lvl 74(L) 82 - 100 mg/dL [facility] BUN 16 8 - 23 mg/dL [facility] Creatinine 0.63 0.51 - 1.00 mg/dL [facility] Albumin 4.5 3.2 - 4.6 gm/dL [facility] Phosphorus 3.1 2.5 - 4.5 mg/dL [facility] GFR Afr Am >60 [facility] Comment: GFR is estimated using creatinine, [...] or less GFR Non Afr Am >60 [facility] Blood specimen (specimen) UPPER LIMB STRUCTURE / Unknown 01/04/2014 11:35 AM EDT 01/04/2014 11:35 AM EDT us Janina Montes MD CHEMISTRY ORDERABLES Regulo desean Result - Final [facility] [address] [place] [address] * SCANNED PRE/POST PROCEDURES (11/21/2013 3:13 PM EDT) Narrative Procedure Note Unknown, Unknown - 11/21/2013 3:13 PM EDT us Unknown Unknown PROCEDURE/MINOR SURGICAL ORDERAB LES Final Result * SCANNED ANESTHESIA FORMS (11/21/2013 3:13 PM EDT) Narrative Procedure Note Unknown, Unknown - 11/21/2013 3:13 PM EDT us Unknown Unknown PROCEDURE/MINOR SURGICAL ORDERAB LES Final Result * PARATHYROID HORMONE INTACT (11/17/2013 1:21 PM EDT) [facility] PTH Intact 28.52 pg/mL [facility] Comment: Intact PTH Calcium Interpretation ------- [...] PM EDT 11/17/2013 1:25 PM EDT Narrative [facility] - 11/17/2013 4:03 PM EDT Blood drawn at 11 am; please run stat us Carlos Sanders MD CHEMISTRY ORDERABLES Final Resul t [facility] [address] [place] [address] * PATHOLOGY TISSUE REPORT (11/17/2013 9:47 AM EDT) Only the most recent of3 resultswithin the time period is included. Surgical Pathology Report PATIENT NAME:NOEMI HUFFMAN Surgical Pathology Report Accession Number Collected Date/Time Received Date/Time [id number] 11/17/13 09:47 EDT 11/17/13 09:47 EDT Diagnosis [...] previous summary on the right lobectomy specimen ([id number]) and incorporates tumor information from both thyroid [...] majority of these nodules are thinly encapsulated. Area Development Consultant section is submitted for frozen, resubmitted labeled [id number]. Area Development Consultant sections are submitted from one end to other in eight cassettes (A: nodule following decalcification). /[place] MR /CN Microscopic Description Microscopic examination is performed and the findings corroborate the diagnosis. [facility] 11/17/2013 9:47 AM EDT us Carlos Sanders MD PATHOLOGY ORDERABLES Final Resul t [facility] [address] [place] [address] * PTH INTRAOPERATIVE (11/17/2013 7:39 AM EDT) Intraop PTH 47.85 pg/mL [facility] Comment: Intact PTH Calcium Interpretation ------- [...] Sanders MD CHEMISTRY ORDERABLES Final Resul t [facility] [address] [place] [address] * SCANNED PRE/POST PROCEDURES (10/22/2013 9:42 AM [...] period is included. Neut Percent 64.8 % [facility] Lymph Percent 23.6 % [facility] Hooker Percent 8.6 % [facility] Eos Percent 2.5 % [facility] Baso Percent 0.5 % [facility] Neut# 4.1 1.8 - 7.7 x10(3)/mcL [facility] Lymph# 1.5 0.6 - 4.8 x10(3)/[facility] Hooker# 0.6 0.0 - 1.3 x10(3)/[facility] Eos# 0.2 0.0 - 0.5 x10(3)/[facility] Baso# 0.0 0.0 - 0.2 x10(3)/[facility] Blood specimen (specimen) 10/14/2013 1:00 PM EDT 10/14/2013 1:18 PM EDT Carlos Sanders MD HEMATOLOGY ORDERABLES Final Resu lt Performing Organization Address City/State/[facility] Co de Phone Number [facility] [address] [place] [address] * NON-HEEL COVERER MACHINE OPERATOR CYTOLOGY REPORT (09/23/2013 1:01 PM EDT) Non-Circuit Designer Cytology Report PATIENT NAME:NOEMI HUFFMAN Non-Circuit Designer Cytology Report Accession Number Collected Date/Time Received Date/Time [id number] 09/23/13 13:01 EDT 09/23/13 15:08 EDT Specimen [...] reviewed by additional departmental pathologist(s) with diagnostic agreement./KM Knotting Machine Operator: REANNA OSBORNE 09/26/2013 Completed by: Anu Vaz (Electronically signed by) 09/26/2013 [facility] Laboratory Gross Description 1. Fine Needle Aspiration, Thyroid Right Lobe 4 direct smears made 2. Fine Needle Aspiration, Thyroid Left Lobe 4 direct smears made [facility] 09/23/2013 1:01 PM EDT Carlos Sanders MD CYTOLOGY ORDERABLES Final Result Performing Organization Address City/State/[facility] Co de Phone Number [facility] [address] [place] [address] * US GUIDED THYROID BIOPSY (09/23/2013 12:59 [...] Material obtained was reviewed by the on-site assistant account manager and determined to be sufficient for diagnosis. [...] results are pending. us Carlos Sanders MD [facility] US ORDERABLES Final Result * US THYROID [...] size, biopsy is recommended. Matt Miller MD. Kyaw Shook MD [facility] US ORDERABLES Final Result * DX BONE [...] Rose PA-C, CCD on 05/10/2013 9:11:00 AM. us Kyaw Shook MD IMG DEXA ORDERABLES Final Result * SCANNED PRE/POST PROCEDURES (06/08/2010 12:00 AM EST) Narrative 06/08/2010 5:56 PM EST Ordered by an unspecified provider. Transcriptions Unknown, Unknown - 06/08/2010 5:56 PM EST Unknown Unknown PROCEDURE/MINOR SURGICAL ORDERAB LES Final [...] Alk Phos 72 41 - 119 IU/L [facility] Blood specimen (specimen) UPPER LIMB STRUCTURE / Unknown 05/28/2010 9:58 AM EST 05/28/2010 10:30 AM EST Darci Camara MD CHEMISTRY ORDERABLES Final Result [facility] [address] [place] [address] * BILIRUBIN TOTAL (05/28/2010 9:58 AM EST) Bili Total 0.3 0.1 - 1.3 mg/dL [facility] Blood specimen (specimen) UPPER LIMB STRUCTURE / Unknown 05/28/2010 9:58 AM EST 05/28/2010 10:30 AM EST us Darci Camara MD CHEMISTRY ORDERABLES Final Result Performing Organization Address [facility] Co de Phone Number [facility] [address] [place] [address] * EK EKG 12 LEAD (05/28/2010 9:51 AM EST) Pathologist [facility] PYRAMIS LINK PYRAMIS Anatomical Region Laterality Modality Electrocardiogra phy 05/28/2010 10:2 3 AM EST Darci Camara MD IMG ECG ORDERABLES Final Re sult * US ABDOMEN LIMITED (07/26/2009 12:00 AM EST) Anatomical Region Laterality Modality Other 07/26/2009 07/26/2009 Narrative 07/26/2009 12:00 AM EST Name: ROSA HIGGINS : 1945 VERIFIED [facility] Reason: PAIN Dict.Staff: DIANE GOMEZ III [id number] Verified By: RDUI HINOJOSA Quan: 07/27/09 7:47 am Exams: US-ABDOMEN [...] 10/05/2009 Name: ROSA HIGGINS : 1945 VERIFIED [facility] Reason: PAIN Dict.Staff: DIANE GOMEZ III [id number] Verified By: RUDI HINOJOSA Quan: 07/27/09 7:47 [...] 09:41 end of result us U Unknown IM [facility] Final Result * CT ABD/PELVIS STUDY ASSISTANT (07/14/2009 2:58 PM EST) Anatomical Region Laterality [...] is nonspecific but may represent a cyst. Motor Installer- [id number] Reading Physician- DUKE STILES MD Released [...] is nonspecific but may represent a cyst. Motor Installer- [id number] Reading Physician- DUKE STILES MD Released Date Time- 07/15/09 0324 Lito Rocha MD [facility] HISTORICAL Final Result * MM DIG DIAG [...] compared with prior studies. IMPRESSION- Benign finding (TOE-Cbhfswgx-4) RECOMMENDATION- Routine screening mammogram in 1 year. * The patient with a palpable abnormality, unexplained by breast imaging, should be managed on clinical basis by the attending physician. * Breast imaging has a false negative rate of 15%. * The patient was notified by mail of the results of this examination. The mammogram was reviewed by a Radiologist and CAD. Motor Installer- ANASTASIA Melton Physician- RUDI PAGE MD Released Date Time- 07/06/09 1602 Procedure Note Rudi Page - 08/31/2009 Procedure-MM DIG DIAG [place] PANEL W/CAD MM DIGITAL DIAG BILAT PANEL Bilateral CC and MLO view(s) were taken. Prior study comparison- December 25, 1999, bilateral diagnostic mammogram. There are scattered fibroglandular densities. 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 No significant changes when compared with prior studies. IMPRESSION- Benign finding (HXW-Koegjyxm-2) RECOMMENDATION- Routine screening mammogram in 1 year. * The patient with a palpable abnormality, unexplained by breast imaging, should be managed on clinical basis by the attending physician. * Breast imaging has a false negative rate of 15%. * The patient was notified by mail of the results of this examination. The mammogram was reviewed by a Radiologist and CAD. Motor Installer- ANASTASIA TORRES Reading Physician- RUDI PAGE MD Released Date Time- 07/06/09 1602 Kyaw Shook MD [facility] HISTOR[facility] Nelly l Result * EK EKG REG (07/28/2008 10:38 AM EST) Only the most recent of2 resultswithin the time period is included. Anatomical Region Laterality Modality Other 07/28/2008 10:3 8 AM EST Narrative 07/28/2008 9:59 PM EST PER THANKS Sinus rhythm Normal ECG Motor Installer- IVAN MILLAN MD Reading Physician- IVAN MILLAN MD Released Date Time- 07/28/082158 Procedure Ivan Brasher - 08/30/2009 PER THANKS Sinus rhythm Normal ECG Motor Installer- IVAN MILLAN MD Reading Physician- IVAN MILLAN MD Released Date Time- 07/28/082158 Micheal Eisenberg MD [facility] HISTORIC [place] Final Result * XR CHEST PORTABLE (07/27/2008 5:50 PM EST) Anatomical Region Laterality Modality Other 07/27/2008 5:50 PM EST Narrative 07/27/2008 9:32 PM EST Chest Indications- Pain. History- Pain. Single frontal view of the chest demonstrates the heart size to be within normal limits. Lungs are clear. Impression- No infiltrate. Motor Installer- JOSE Melton Physician- SIMEON GASTELUM M.D. Released Date Time- 07/27/082155 Procedure Note Simeon Gastelum - 08/30/2009 Chest Indications- Pain. History- Pain. Single frontal view of the chest demonstrates the heart size to be within normal limits. Lungs are clear. Impression- No infiltrate. Motor Installer- JOSE Melton Physician- SIMEON GASTELUM M.D. Released Date Time- 07/27/082155 Juan Antonio Cheng MD [facility]ISTOR[facility] Final Result Visit Diagnoses Diagnosis Start Date [...] bruit Other symptoms involving cardiovascular system 11/09/2024 Nasal congestion Other diseases of nasal cavity and sinuses 03/11/2025 Post-nasal drip Postnasal drip 03/11/2025 Acute recurrent sinusitis, unspecified location 03/11/2025 Encounter for screening mammogram for malignant neoplasm of breast Other screening mammogram 03/22/2025 Nonrheumatic aortic valve insufficiency Aortic valve disorders 04/06/2025 Bruit of right carotid artery 04/06/2025 Right carotid bruit Other symptoms involving cardiovascular system 04/06/2025 Other hyperlipidemia 04/07/2025 Gastroesophageal reflux disease with esophagitis without hemorrhage 04/12/2025 Rectocele 07/19/2019 Overactive bladder Hypertonicity of bladder 07/19/2019 Incomplete bladder emptying 07/19/2019 Cystocele, midline 07/19/2019 Stress incontinence Female stress incontinence 07/19/2019 Gastrointestinal hemorrhage, unspecified gastrointestinal hemorrhage type 09/06/2023 Mitral valve prolapse Mitral valve disorders 09/06/2023 Aortic valve regurgitation Aortic valve disorders 09/06/2023 Post-surgical hypothyroidism Postsurgical hypothyroidism 09/06/2023 Acute blood loss anemia Acute posthemorrhagic anemia 09/06/2023 Hypokalemia Hypopotassemia 09/06/2023 Care Teams Boiler House Supervisor Relationship Specialty Start Date End Date Kyaw Shook MD [address] [id number] PCP - General Family Medicine 07/12/19 Zbigniew Ramos MD [address] [place], [place] [id number] Physician Internal Medicine-Cardiovascular Disease 03/26/12 Janina Montes MD [address] [address] Internal Medicine-Endocrinology, Diabetes & Metabolism 01/10/14
== END 2025-05-11 23:59 ==
LOC: LAB.DROPOF 05-12 10:47
PROVIDERS: PCP Family Medicine; Visit Provider Family Medicine
DX: E78.5 Hyperlipidemia, unspecified (principal); I10 Essential (primary) hypertension; D64.9 Anemia, unspecified; K12.1 Other forms of stomatitis; E03.9 Hypothyroidism, unspecified; I25.10 Atherosclerotic heart disease of native coronary artery without angina pectoris
CPT/HCPCS: 80053; 80061; 82306; 82607; 82728; 83540; 83550; 84443; 85025